=== PATIENT | male | born 1950 | race Caucasian/White ===

== ENCOUNTER → 2016-10-18 | Outpatient (CLI) | payer OTHER ==
--- NOTE | 2016-10-18 10:09 | MR ---
EXAMINATION TYPE: MR lumbar spine wo/w con DATE OF EXAM: 10/18/2016 9:55 AM COMPARISON: Lumbar spine x-ray September 25, 2016. HISTORY: Left sided low back pain with right-sided sciatica per order, left leg, buttocks, and hip pa in x 4 months per patient. TECHNIQUE: Multiplanar, multisequence images of the lumbar spine is performed without and with IV contrast, util izing 15 mL intravenous MultiHance FINDINGS: Sagittal images of the lumbar spine redemonstrated bilateral pars defects L5 level with a a nterolisthesis of L4 on L5 measuring roughly 11 mm on sagittal image 8. Multilevel disc desiccation is present with relative sparing of L5-S1 level. There is advanced disc space narrowing with heteroge neous increased T1 and T2 signal consistent with Modic type II degenerative change at this level. No large posterior disc herniations are seen on sagittal images . Vertebral body heights are fairly well -maintained with some small Schmorl nodes in the upper lumbar spine present. The conus medullaris is slightly high in position ending at inferior T12 vertebral body level. There is mild multilevel anter ior spurring. No suspicious postcontrast enhancement is seen. Axial images at the T12-L1 level shows mild broad disc bulge minimally effacing anterior thecal sac o n sagittal image 7 and axial image 27, bilateral neural foramina are patent. Axial images at the L1-L2 and the L2-L3 levels are felt within normal limits. Axial images at the L3-L4 level show mild facet degenerative changes bilaterally, there is no signifi cant disc herniation or spinal canal effacement. Bilateral neural foramina are felt patent. Axial images at the L4-L5 level show spondylolisthesis with moderate to severe facet arthropathy bila terally. Spinal canal is fairly well preserved. There is moderate to severe bilateral neural foramina l narrowing due to spondylolisthesis with effacement of both L4 nerves suspected. Axial images at the L5-S1 level are felt within normal limits. Paraspinal muscle bulk is fairly well-maintained. No suspicious retroperitoneal findings are identifi ed. Some artifact from surgical change left proximal femur level is noted on survey sequence. IMPRESSION: Bilateral pars defects L4 level with a grade 2 spondylolisthesis of L4 on L5. Spondylolis thesis results in advanced bilateral neural foraminal narrowing with encroachment on both L4 nerve haji spected. Further details are noted as discussed above.
== END | disposition home or self-care (01) ==
LOC: RADMRIMAIN 08:47
PROVIDERS: ATTEND Family Medicine
DX: M99.73 Connective tissue and disc stenosis of intervertebral foramina of lumbar region (principal); M43.16 Spondylolisthesis, lumbar region
CPT/HCPCS: 72158; A9577

== ENCOUNTER 2017-05-04 23:48 | Inpatient (IN) | payer MEDICARE ==
[2017-05-05] MEDS ORDERED: SODIUM CHLORIDE 0.9% 1,000 ML IV STA (00:05)
[2017-05-05 00:44] LABS: Basophils % (A) 1 %; CH 36.1; CHCM 35.3; Eosinophils % (A) 2 %; HCT 31.9 % (39.0-53.0); HDW 2.69; HGB 10.8 gm/dL (13.0-17.5); Luc # (Auto) 0.05; Luc % (Auto) 2; Lymphocytes # (A) 1.1 k/uL (1.0-4.8); Lymphocytes % (A) 38 %; MCH 34.9 pg (25.0-35.0); MCHC 33.9 g/dL (31.0-37.0); MCV 102.7 fL (80.0-100.0); Macrocytosis Slight; Mean Platelet Volume 7.9; Monocytes # (A) 0.1 k/uL (0-1.0); Monocytes % (A) 3 %; Neutrophils # (A) 1.7 k/uL (1.3-7.7); Neutrophils % (A) 56 %; RBC 3.11 m/uL (4.30-5.90); RDW 13.7 % (11.5-15.5); WBC (Perox) 3.17
--- NOTE | 2017-05-05 00:45 | ED ---
Syncope HPI - General Chief Complaint: Syncope Stated Complaint: Syncope Time Seen by Provider: 05/04/17 23:58 Source: patient, family, RN notes reviewed Mode of arrival: ambulatory Limitations: no limitations - History of Present Illness Initial Comments: This is a 67-year-old male with a history of peptic ulcers and GI bleeding in the past who states he felt dizzy today and then she passed out briefly twice. He states he has she started feeling somewhat weak yesterday. He did have dark bowel movements several times prior to admission today the last one showing dark red blood. He complains of having a headache feeling sweaty also had nausea vomiting last night. He had no blood per report in his emesis. Last episode like this was in April of last year about time he had a cardiac stent placed. He denies any overt abdominal pain at this time. He does show week per his he is pale looking. MD Complaint: loss of consciousness, other - Related Data Home Medications Medication Instructions Recorded Confirmed Aspirin EC [Ecotrin Low Dose] 81 mg PO DAILY 05/30/16 05/05/17 Lisinopril 2.5 mg PO DAILY 05/30/16 05/05/17 Metoprolol Tartrate 50 mg PO AC-BID 05/30/16 05/05/17 Atorvastatin [Lipitor] 40 mg PO DAILY 06/07/16 05/05/17 Clopidogrel [Plavix] 75 mg PO HS 06/07/16 05/05/17 traMADol HCL [Ultram] 50 mg PO Q6HR PRN 05/05/17 05/05/17 Previous Rx's Medication Instructions Recorded Omeprazole 20 mg PO BID #28 cap 06/07/16 Allergies Allergy/AdvReac Type Severity Reaction Status Date / Time No Known Allergies Allergy Verified 05/04/17 23:55 Review of Systems ROS Statement: Those systems with pertinent positive or pertinent negative responses have been documented in the HPI. ROS Other: All systems not noted in ROS Statement are negative. Past Medical History Past Medical History: Hyperlipidemia History of Any Multi-Drug Resistant Organisms: None Reported Past Surgical History: Heart Catheterization With Stent, Hernia Repair, Orthopedic Surgery Additional Past Surgical History / Comment(s): CARDIAC STENTS X3, SHENA INGUINAL HERNIA REPAIRS, LT HAND SX, LT FEMUR BROKEN X2 STEVEN IN PLACE Past Anesthesia/Blood Transfusion Reactions: No Reported Reaction Date of Last Stent Placement:: UNK Past Psychological History: No Psychological Hx Reported Smoking Status: Never smoker Past Alcohol Use History: None Reported, Occasional Past Drug Use History: None Reported - Past Family History Mother Family Medical History: Congestive Heart Failure (CHF) Father Family Medical History: Cancer General Exam - General Exam Comments Initial Comments: This is a well-developed well-nourished awake alert oriented 3 male Limitations: no limitations General appearance: alert, anxious Head exam: Present: atraumatic, normocephalic, normal inspection Eye exam: Present: PERRL, EOMI, other (Pale conjunctiva). Absent: scleral icterus, conjunctival injection, periorbital swelling ENT exam: Present: normal exam, mucous membranes moist Neck exam: Present: normal inspection. Absent: tenderness, meningismus, lymphadenopathy Respiratory exam: Present: normal lung sounds bilaterally. Absent: respiratory distress, wheezes, rales, rhonchi, stridor Cardiovascular Exam: Present: regular rate, normal rhythm, normal heart sounds. Absent: systolic murmur, diastolic murmur, rubs, gallop, clicks GI/Abdominal exam: Present: soft, normal bowel sounds. Absent: distended, tenderness, guarding, rebound, rigid Rectal exam: Present: heme (+) stool (HEENT positive burgundy-colored stool no masses) Extremities exam: Present: normal inspection, full ROM, normal capillary refill. Absent: tenderness, pedal edema, joint swelling, calf tenderness Back exam: Present: normal inspection Neurological exam: Present: alert, oriented X3, CN II-XII intact Psychiatric exam: Present: normal affect, normal mood Skin exam: Present: warm, dry, intact, pallor. Absent: rash Course Vital Signs 05/04/17 05/05/17 23:52 00:35 Temperature 97.3 F L Pulse Rate 87 74 Respiratory 18 18 Rate Blood Pressure 107/52 105/57 O2 Sat by Pulse 99 96 Oximetry EKG Findings - EKG Results: EKG: interpreted by WOLF, sinus rhythm (Sinus rhythm rate 75. Interval 118 QRS duration 88 daily since QTC of 36/431 this is a normal-appearing EKG.) Medical Decision Making - Medical Decision Making I did discuss findings with Dr. herrera as not patient will be admitted with GI consultation patient has seen Dr. Sue in the past. - Lab Data Result diagrams: 05/05/17 00:30 Lab Results 05/05/17 05/05/17 Range/Units 00:30 00:30 WBC 3.0 L (3.8-10.6) k/uL RBC 3.11 L (4.30-5.90) m/uL Hgb 10.8 L (13.0-17.5) gm/dL Hct 31.9 L (39.0-53.0) % MCV 102.7 H (80.0-100.0) fL MCH 34.9 (25.0-35.0) pg MCHC 33.9 (31.0-37.0) g/dL RDW 13.7 (11.5-15.5) % Plt Count 145 L (150-450) k/uL Neutrophils % 56 % Lymphocytes % 38 % Monocytes % 3 % Eosinophils % 2 % Basophils % 1 % Neutrophils # 1.7 (1.3-7.7) k/uL Lymphocytes # 1.1 (1.0-4.8) k/uL Monocytes # 0.1 (0-1.0) k/uL Eosinophils # 0.0 (0-0.7) k/uL Basophils # 0.0 (0-0.2) k/uL Macrocytosis Slight Stool Occult Blood Positive (Negative) Disposition Clinical Impression: Upper GI bleed, Anemia Disposition: ADMITTED IP TO THIS [facility] Condition: Stable Referrals: Tunde Ruano DO [Primary Care Provider] - 1-2 days
[2017-05-05 00:52] LABS: ALT 41 U/L (21-72); AST 22 U/L (17-59); Alkaline Phosphatase 51 U/L (38-126); Anion Gap 11 mmol/L; Blood Urea Nitrogen 38 mg/dL (9-20); Calcium 9.1 mg/dL (8.4-10.2); Carbon Dioxide 24 mmol/L (22-30); Chloride 102 mmol/L (98-107); Glucose 135 mg/dL (74-99); Magnesium 1.7 mg/dL (1.6-2.3); Non-African American GFR(MDRD) >60 (>60 ml/min/1.73 sqM); Potassium 4.8 mmol/L (3.5-5.1); Sodium 137 mmol/L (137-145); Total Bilirubin 0.3 mg/dL (0.2-1.3); Total Protein 6.1 g/dL (6.3-8.2)
[2017-05-05] MEDS ORDERED: ONDANSETRON 4 MG/2 ML VIAL IVP PRN (00:55)
[2017-05-05] MEDS ORDERED: NALOXONE 0.4 MG/ML 1 ML VIAL IV PRN (00:55)
[2017-05-05 00:58] LABS: Creatine Kinase 70 U/L (55-170)
[2017-05-05 01:09] LABS: Troponin I <0.012 ng/mL (0.000-0.034)
[2017-05-05 01:30] LABS: Glucose,Whole Blood 132 mg/dL (75-99)
[2017-05-05 02:05] VITALS: BMI 26.6
[2017-05-05 06:32] LABS: CH 35.7; CHCM 34.8; HCT 29.7 % (39.0-53.0); HDW 2.69; MCH 34.9 pg (25.0-35.0); MCHC 33.8 g/dL (31.0-37.0); MCV 103.1 fL (80.0-100.0); Macrocytosis Slight; Mean Platelet Volume 7.2; RBC 2.88 m/uL (4.30-5.90); RDW 13.5 % (11.5-15.5); WBC 3.6 k/uL (3.8-10.6); WBC (Perox) 3.68
[2017-05-05 06:50] LABS: Glucose 123 mg/dL (74-99)
[2017-05-05 06:51] LABS: Anion Gap 9 mmol/L; Blood Urea Nitrogen 37 mg/dL (9-20); Calcium 8.9 mg/dL (8.4-10.2); Carbon Dioxide 26 mmol/L (22-30); Chloride 103 mmol/L (98-107); Magnesium 1.8 mg/dL (1.6-2.3); Non-African American GFR(MDRD) >60 (>60 ml/min/1.73 sqM); Phosphorous 4.3 mg/dL (2.5-4.5); Potassium 4.6 mmol/L (3.5-5.1); Sodium 138 mmol/L (137-145)
[2017-05-05] MEDS ORDERED: Magnesium Replacement Protocol 1 EACH MISC MISCELLANE PRN (07:23)
[2017-05-05 07:28] LABS: Add Differential Manual Differential
[2017-05-05 07:31] LABS: Manual Review Performed; Nucleated Red Blood Cells 0 /100 WBC (0-0); Total Cells Counted 100
[2017-05-05 08:01] LABS: Glucose,Whole Blood 130 mg/dL (75-99)
[2017-05-05] MEDS: MAGNESIUM SULFATE-D5W PMX 1 GM in DEXTROSE/WATER 1 100ML.BAG IVPB SCH ×2 (08:02→08:55)
[2017-05-05] MEDS: SODIUM CHLORIDE 0.9% 1,000 ML IV SCH ×2 (08:54→19:00)
[2017-05-05] MEDS: PANTOPRAZOLE 40 MG/10 ML VIAL IV SCH ×2 (09:18→20:12)
--- NOTE | 2017-05-05 14:51 | P.HPIM ---
History of Present Illness 67-year-old gentleman with history of peptic ulcer disease in the past came in with complaints of hematemesis has been going on for 2-3 days about 5 episodes of dark stools yesterday and an episode of hematemesis or coffee-ground emesis today. Patient denied any fever, chills. Patient doesn't take any in and this aids but patient is on 2 antiplatelet medications including aspirin and Plavix. Patient had stents placed about any other ago in late April. Patient has approximately 4-5 coronary stents from his previous cardiac catheterization about any other ago and 4 years ago before that. Patient was coming of lightheadedness and had a syncopal episode yesterday. Patient is on Protonix antiplatelet therapy is being held at this point of time. Patient and evidences are being held as well at this point of time. Review of Systems REVIEW OF SYSTEMS: CONSTITUTIONAL: No fever, no malaise, no fatigue. HEENT: No recent visual problems or hearing problems. Denied any sore throat. CARDIOVASCULAR: No chest pain, orthopnea, PND, no palpitations, PULMONARY: No shortness of breath, no cough, no hemoptysis. GASTROINTESTINAL: No diarrhea, Normoactive bowel sounds. NEUROLOGICAL: No headaches, no weakness, no numbness. HEMATOLOGICAL: Denies any bleeding or petechiae. GENITOURINARY: Denies any burning micturition, frequency, or urgency. MUSCULOSKELETAL/RHEUMATOLOGICAL: Denies any joint pain, swelling, or any muscle pain. ENDOCRINE: Denies any polyuria or polydipsia. The rest of the 14-point review of systems is negative. Past Medical History Past Medical History: Coronary Artery Disease (CAD), Chest Pain / Angina, GI Bleed, Hyperlipidemia, Hypertension, Syncope History of Any Multi-Drug Resistant Organisms: None Reported Past Surgical History: Heart Catheterization With Stent, Hernia Repair, Orthopedic Surgery Additional Past Surgical History / Comment(s): CARDIAC STENTS X3, SHENA INGUINAL HERNIA REPAIRS, LT HAND SX, LT FEMUR BROKEN X2 STEVEN IN PLACE Past Anesthesia/Blood Transfusion Reactions: No Reported Reaction Date of Last Stent Placement:: UNK Past Psychological History: No Psychological Hx Reported Additional Psychological History / Comment(s): PT LIVES IN OWN HOME WITH HIS . IS INDEPENDANT OWNS HIS OWN PLUMBING BUISNESS. NO OUTSIDE SERVICES. Smoking Status: Never smoker Past Alcohol Use History: None Reported, Occasional Past Drug Use History: None Reported - Past Family History Mother Family Medical History: Congestive Heart Failure (CHF) Father Family Medical History: Cancer Medications and Allergies Home Medications Medication Instructions Recorded Confirmed Type Aspirin EC [Ecotrin Low Dose] 81 mg PO DAILY 05/30/16 05/05/17 History Lisinopril 2.5 mg PO DAILY 05/30/16 05/05/17 History Metoprolol Tartrate 50 mg PO AC-BID 05/30/16 05/05/17 History Atorvastatin [Lipitor] 40 mg PO DAILY 06/07/16 05/05/17 History Clopidogrel [Plavix] 75 mg PO HS 06/07/16 05/05/17 History Omeprazole 20 mg PO DAILY PRN 05/05/17 05/05/17 History traMADol HCL [Ultram] 50 mg PO Q6HR PRN 05/05/17 05/05/17 History Allergies Allergy/AdvReac Type Severity Reaction Status Date / Time No Known Allergies Allergy Verified 05/05/17 09:05 Physical Exam Vitals: Vital Signs Temp Pulse Resp BP Pulse Ox 05/05/17 11:22 17 05/05/17 11:20 98.4 F 76 13 149/68 98 05/05/17 11:00 74 12 149/68 99 05/05/17 10:40 72 10 L 149/68 100 05/05/17 10:20 69 13 149/68 100 05/05/17 10:00 85 20 149/68 96 05/05/17 09:40 67 13 151/68 05/05/17 09:20 69 12 151/68 05/05/17 09:08 98.6 F 17 98 05/05/17 09:00 66 12 151/68 05/05/17 08:40 70 16 151/68 05/05/17 08:20 98.6 F 68 13 151/68 05/05/17 08:00 71 18 151/68 05/05/17 07:40 67 16 128/65 05/05/17 07:20 71 12 128/65 05/05/17 07:00 81 23 128/65 05/05/17 06:40 77 12 128/65 05/05/17 06:20 66 24 128/65 05/05/17 06:00 74 10 L 128/65 05/05/17 05:40 85 31 H 97/53 05/05/17 05:20 81 11 L 97/53 05/05/17 05:00 73 13 97/53 05/05/17 04:40 82 14 97/53 05/05/17 04:20 79 10 L 97/53 05/05/17 04:00 98.3 F 73 13 97/53 98 05/05/17 03:40 75 14 05/05/17 03:20 77 14 05/05/17 03:00 75 13 05/05/17 02:40 76 14 05/05/17 02:20 74 15 05/05/17 02:00 98.3 F 94 28 H 113/60 05/05/17 01:40 83 13 05/05/17 01:27 81 05/05/17 01:18 98.3 F 05/05/17 01:11 98.1 F 77 18 101/66 96 05/05/17 00:35 74 18 105/57 96 05/04/17 23:52 97.3 F L 87 18 107/52 99 Intake and Output 05/04/17 05/05/17 05/05/17 22:59 06:59 14:59 Intake Total 400 650 Output Total 500 1000 Balance -100 -350 Intake: IV 400 350 Sodium Chloride 0.9% 1, 400 350 000 ml @ 100 mls/hr IV . Q10H STA Rx#:[id number] Intake, IV Titration 200 Amount Magnesium Sulfate-D5w Pmx 200 1 gm In Dextrose/Water 1 100ml.bag @ 100 mls/hr IVPB Q1H TATA Rx#: [id number] Oral 100 Output: Urine 500 400 Emesis 600 Other: Voiding Method Urinal # Voids 1 # Emeses 0 Weight 79.379 kg PHYSICAL EXAMINATION: GENERAL: The patient is alert and oriented x3, not in any acute distress. Well developed, well nourished. HEENT: Pupils are round and equally reacting to light. EOMI. No scleral icterus. No conjunctival pallor. Normocephalic, atraumatic. No pharyngeal erythema. No thyromegaly. CARDIOVASCULAR: S1 and S2 present. No murmurs, rubs, or gallops. PULMONARY: Chest is clear to auscultation, no wheezing or crackles. ABDOMEN: Soft, nontender, nondistended, normoactive bowel sounds. No palpable organomegaly. MUSCULOSKELETAL: No joint swelling or deformity. EXTREMITIES: No cyanosis, clubbing, or pedal edema. NEUROLOGICAL: Gross neurological examination did not reveal any focal deficits. SKIN: No rashes. Results CBC & Chem 7: 05/05/17 05:32 05/05/17 05:32 Labs: Abnormal Lab Results - Last 24 Hours (Table) 05/05/17 05/05/17 05/05/17 Range/Units 00:30 00:30 00:30 WBC 3.0 L (3.8-10.6) k/uL RBC 3.11 L (4.30-5.90) m/uL Hgb 10.8 L (13.0-17.5) gm/dL Hct 31.9 L (39.0-53.0) % MCV 102.7 H (80.0-100.0) fL Plt Count 145 L (150-450) k/uL APTT 20.9 L (22.0-30.0) sec BUN 38 H (9-20) mg/dL Glucose 135 H (74-99) mg/dL POC Glucose (mg/dL) (75-99) mg/dL Total Protein 6.1 L (6.3-8.2) g/dL 05/05/17 05/05/17 05/05/17 Range/Units 01:27 05:32 05:32 WBC 3.6 L (3.8-10.6) k/uL RBC 2.88 L (4.30-5.90) m/uL Hgb 10.0 L (13.0-17.5) gm/dL Hct 29.7 L (39.0-53.0) % MCV 103.1 H (80.0-100.0) fL Plt Count 149 L (150-450) k/uL APTT (22.0-30.0) sec BUN 37 H (9-20) mg/dL Glucose 123 H (74-99) mg/dL POC Glucose (mg/dL) 132 H (75-99) mg/dL Total Protein (6.3-8.2) g/dL 05/05/17 Range/Units 07:59 WBC (3.8-10.6) k/uL RBC (4.30-5.90) m/uL Hgb (13.0-17.5) gm/dL Hct (39.0-53.0) % MCV (80.0-100.0) fL Plt Count (150-450) k/uL APTT (22.0-30.0) sec BUN (9-20) mg/dL Glucose (74-99) mg/dL POC Glucose (mg/dL) 130 H (75-99) mg/dL Total Protein (6.3-8.2) g/dL Assessment and Plan Plan: #1 acute blood loss anemia secondary to upper GI bleed from possible peptic ulcer disease. Patient is on Protonix IV. Antiplatelet therapy is being held. Patient will undergo upper GI endoscopy tomorrow. After upper GI endoscopy will depending on the results will discuss with the her assistant property manager regarding continuation of dual antiplatelet therapy as he almost completed 1 year of dual antiplatelet therapy after his coronary stent placement patient probably can be switched to just aspirin or Plavix since he is on Prilosec, patient probably should be on aspirin upon discharge without Plavix. #2 coronary artery disease with previous cardiac catheterization and stents. #3 Hypertension: With concerns of hypotension secondary to acute GI bleed and evidences are being held at this time. #4 chronic low back pain #5 hyperlipidemia #6 previous history of peptic ulcer disease
[2017-05-05] MEDS: METOPROLOL TARTRATE 50 MG TAB PO SCH (17:46)
[2017-05-06] MEDS: SODIUM CHLORIDE 0.9% 1,000 ML IV SCH ×3 (01:00→10:05)
--- NOTE | 2017-05-06 07:21 | CONS ---
DATE OF CONSULTATION: 05/05/2017 REASON FOR CONSULTATION: Acute gastrointestinal bleed. HISTORY OF PRESENT ILLNESS: The patient is a 67 -year-old pleasant white male came to the emergency room with three episodes of black tarry stools that started yesterday afternoon. He started having some epigastric discomfort for the last two or three days. He takes Advil every night for several years. Yesterday he had an episode of black tarry7 stools followed by another episode of maroon colored stools and he became somewhat lightheaded and dizzy and came to the emergency room and subsequently was admitted to the hospital for further evaluation and treatment. He had a similar episode about a year ago and he states that the was admitted to the hospital for about two days but does not recall having an upper endoscopy done. He was told that he has possible peptic ulcer disease that was treated with PPI at that time. The patient has history of coronary artery disease with stent placement a year ago and presently on aspirin and Plavix which he took yesterday. Since being in the hospital, he did not have any further episodes of bleeding. The epigastric pain is better. He remains NPO. He had an episode of dark colored emesis this morning. Overall he is feeling much better. His past medical history is significant for coronary artery disease, hypertension, hyperlipidemia. Medications at home: 1. Aspirin. 2. Lisinopril. 3. Metoprolol. 4. Lipitor. 5. Plavix. 6. Ultram. ALLERGIES: None. SOCIAL HISTORY: No smoking or alcohol use. PAST SURGICAL HISTORY: Bilateral inguinal hernia repair, left femur fracture surgery, cardiac stent placement a year ago. FAMILY HISTORY: Mother has congestive heart failure. Father has some cancer. REVIEW OF SYSTEMS: CARDIOPULMONARY: No chest pain or shortness of breath. : No hematuria or dysuria. MUSCULOSKELETAL: Unremarkable. SKIN: Unremarkable Endocrine: Unremarkable. Psychiatric: Unremarkable. Neurological: Unremarkable. ENT/Vision: Unremarkable. Constitutional: No recent weight loss. No fevers, chills or night sweats. On physical examination, he appears comfortable, no apparent distress. Vital signs are stable. Blood pressure is 128/65. Pulse rate 67. Temperature 98.6. HEENT: Unremarkable. Conjunctivae pink. Sclerae anicteric. Oral cavity no lesions. Neck no JVD or lymph node enlargement. Chest is clear to auscultation. Heart is regular rate and rhythm. Abdomen is soft. Bowel sounds positive. Mild tenderness in the epigastric area. Extremities no pedal edema. Skin no rashes. Neurological: Alert and oriented times three. No focal deficits. Labs done at the time of admission to the hospital last night: WBC 3, hemoglobin 10.8, this morning it is 10. Platelets 149. WBC 3.6, BUN 38, creatinine 0.8. AST, ALT, T-bili and alk phos all within normal limits. IMPRESSION: 1. Acute gastrointestinal bleed, possibly upper in etiology. The patient had two episodes of black tarry stools and became dizzy, came into the emergency room. Initial hemoglobin was 10.8 and this morning it is 10. For the last 12 hours, he did not have any further episodes of bleeding and he remains hemodynamically stable. Most likely dealing with peptic ulcer disease related to NSAID use. 2. Coronary artery disease status post stent placement a year ago presently on aspirin and Plavix. RECOMMENDATIONS: 1. CBC every six hours. 2. Start him on a clear liquid diet. 3. Proceed with upper endoscopy tomorrow. 4. Continue Protonix 40 mg twice daily. 5. We will follow him closely during this hospital stay. Thank you for your consultation. NELLI
[2017-05-06 07:46] LABS: Basophils % (A) 1 %; CH 35.8; Eosinophils # (A) 0.1 k/uL (0-0.7); Eosinophils % (A) 3 %; HCT 25.7 % (39.0-53.0); HDW 2.59; HGB 8.7 gm/dL (13.0-17.5); Luc # (Auto) 0.03; Luc % (Auto) 1; Lymphocytes # (A) 1.7 k/uL (1.0-4.8); Lymphocytes % (A) 52 %; MCH 35.7 pg (25.0-35.0); MCHC 33.7 g/dL (31.0-37.0); MCV 105.9 fL (80.0-100.0); Macrocytosis Moderate; Mean Platelet Volume 8.2; Monocytes # (A) 0.1 k/uL (0-1.0); Monocytes % (A) 2 %; Neutrophils # (A) 1.4 k/uL (1.3-7.7); Neutrophils % (A) 42 %; RBC 2.42 m/uL (4.30-5.90); RDW 14.5 % (11.5-15.5); WBC 3.2 k/uL (3.8-10.6); WBC (Perox) 3.47
[2017-05-06 08:03] LABS: ALT 30 U/L (21-72); AST 17 U/L (17-59); Alkaline Phosphatase 42 U/L (38-126); Anion Gap 8 mmol/L; Blood Urea Nitrogen 13 mg/dL (9-20); Carbon Dioxide 23 mmol/L (22-30); Chloride 110 mmol/L (98-107); Glucose 90 mg/dL (74-99); Non-African American GFR(MDRD) >60 (>60 ml/min/1.73 sqM); Potassium 4.1 mmol/L (3.5-5.1); Sodium 141 mmol/L (137-145); Total Bilirubin 0.2 mg/dL (0.2-1.3); Total Protein 5.1 g/dL (6.3-8.2)
[2017-05-06 08:08] LABS: Manual Review Performed
[2017-05-06] MEDS: METOPROLOL TARTRATE 50 MG TAB PO SCH ×2 (08:40→16:08)
[2017-05-06] MEDS: PANTOPRAZOLE 40 MG/10 ML VIAL IV SCH (08:42)
[2017-05-06] MEDS ORDERED: ATORVASTATIN 40 MG TAB PO SCH (09:00)
[2017-05-06 12:18] VITALS: RESP 18; TEMP 97.4
[2017-05-06] MEDS ORDERED: PROPOFOL 10 MG/ML 20 ML VIAL IV ONE (14:13)
[2017-05-06] MEDS ORDERED: MIDAZOLAM 2 MG/2 ML VIAL ONE (14:13)
[2017-05-06] MEDS ORDERED: LIDOCAINE 1% INJ 10MG/ML (20 ML MDV) ONE (14:13)
[2017-05-06] MEDS ORDERED: IV FLUID CONTINUATION 400 ML IV ONE (14:21)
--- NOTE | 2017-05-06 14:42 | P.PCN ---
Date of Procedure: 05/06/17 Preoperative Diagnosis: Postoperative Diagnosis: Procedure(s) Performed: Procedure: Esophagogastroduodenoscopy and biopsy. Preoperative diagnosis upper GI bleeding and anemia. Postoperative diagnosis: 1. Hiatal hernia with no obvious esophagitis or complicated reflux disease. 2. Gastritis and duodenitis with duodenal bulb ulcer with clean ulcer base not bleeding at the time of this exam. 3. Biopsy obtained from the antrum to rule out H. pylori infection. Preparation and sedation: Was provided by anesthesia. Brief clinical history: The patient is a 67-year-old male who was admitted to the hospital because of history of epigastric pain of few days' duration and dark stools that started the day before admission. His hemoglobin was 10.8 at the time of admission and dropped by around 2 grams down to 8.7 this morning. The patient was on Plavix for coronary atherosclerotic heart disease and he is on aspirin daily. The details are summarized in the history and physical and dictated consultation. This evaluation is to assess for a source of upper GI bleeding. Procedure: With the patient on his left lateral decubitus position and after informed consent and adequate sedation, I passed the Olympus-GIF 160 video upper endoscope through the cricopharyngeus down the esophagus. GE junction was around 35 cm from the incisors and there was a sliding hiatal hernia around 2-3 cm in size. The esophagus did not show any obvious esophagitis or complicated reflux disease. The endoscope was then passed into the stomach which was insufflated with air and inspected in detail including the retroflex view in the cardia. There was some mottling and erythema in the antrum and a fading erosion or 2 but no ulcers or bleeding. Pyloric channel did not show any ulcers. Duodenal bulb showed some erythema and edema and there was a small ulcer in the distal bulb with clean base with no visible vessels or dark protuberances or active spontaneous bleeding. I was able to pass the endoscope to the post bulbar area and descending duodenum. There was no obstruction or any other pathology. I obtained biopsies from the antrum then the endoscope was withdrawn. The patient tolerated the procedure well. Plan: Will continue clear liquid diet overnight and check his blood counts regularly and continue PPI. Based on his blood counts in the morning will consider advancing his diet and make further plans based on his course. We will follow with you with interest. Implants: Indications for Procedure: Operative Findings: Description of Procedure:
--- NOTE | 2017-05-06 14:44 | P.DS ---
Providers Date of admission: 05/05/17 00:58 Attending physician: Steven Robles Consults: 05/05/17 00:56 Consult Physician Routine Consulting Provider: Ricardo Sue Consult Reason/Comments: Upper GI bleeding Do you want consulting provider notified?: Yes [facility] Course: 66-year-old woman admitted for upper GI bleed secondary to peptic ulcer disease. Patient hemoglobin did drop but patient did not have any hematemesis or any dark stools today. Patient will undergo upper GI endoscopy and will be discharged after that if cleared by gastroenterology and patient is on both aspirin and Plavix and Plavix will be discontinued patient will be discharged on Prilosec for 30 days along with Maalox. Patient had cardiac catheterization and stent placement about any ago. Discussed with cardiology regarding dual antiplatelet therapy PHYSICAL EXAMINATION: GENERAL: The patient is alert and oriented x3, not in any acute distress. Well developed, well nourished. HEENT: Pupils are round and equally reacting to light. EOMI. No scleral icterus. No conjunctival pallor. Normocephalic, atraumatic. No pharyngeal erythema. No thyromegaly. CARDIOVASCULAR: S1 and S2 present. No murmurs, rubs, or gallops. PULMONARY: Chest is clear to auscultation, no wheezing or crackles. ABDOMEN: Soft, nontender, nondistended, normoactive bowel sounds. No palpable organomegaly. MUSCULOSKELETAL: No joint swelling or deformity. EXTREMITIES: No cyanosis, clubbing, or pedal edema. NEUROLOGICAL: Gross neurological examination did not reveal any focal deficits. SKIN: No rashes. #1 acute blood loss anemia secondary to upper GI bleed from possible peptic ulcer disease. #2 coronary artery disease with previous cardiac catheterization and stents. #3 Hypertension: With concerns of hypotension secondary to acute GI bleed and evidences are being held at this time. #4 chronic low back pain #5 hyperlipidemia #6 previous history of peptic ulcer disease Patient Condition at Discharge: Stable Plan - Discharge Summary New Discharge Prescriptions: New Mag Hydrox/Al Hydrox/Simeth [Maalox] 30 ml PO BID #10 day Omeprazole [PriLOSEC] 40 mg PO MAX-BRKFST #30 capsule. Discontinued Lisinopril 2.5 mg PO DAILY Clopidogrel [Plavix] 75 mg PO HS Omeprazole 20 mg PO DAILY PRN PRN Reason: Heartburn No Action Metoprolol Tartrate 50 mg PO AC-BID Aspirin EC [Ecotrin Low Dose] 81 mg PO DAILY Atorvastatin [Lipitor] 40 mg PO DAILY traMADol HCL [Ultram] 50 mg PO Q6HR PRN PRN Reason: Pain Discharge Medication List Aspirin EC [Ecotrin Low Dose] 81 mg PO DAILY 05/30/16 [History] Metoprolol Tartrate 50 mg PO AC-BID 05/30/16 [History] Atorvastatin [Lipitor] 40 mg PO DAILY 06/07/16 [History] traMADol HCL [Ultram] 50 mg PO Q6HR PRN 05/05/17 [History] Mag Hydrox/Al Hydrox/Simeth [Maalox] 30 ml PO BID #10 day 05/06/17 [Rx] Omeprazole [PriLOSEC] 40 mg PO AC-BRKFST #30 capsule. 05/06/17 [Rx] Follow up Appointment(s)/Referral(s): Tawnya Alfaro MD [STAFF PHYSICIAN] - 1 Week Tunde Ruano DO [Primary Care Provider] - 3 Days Discharge Disposition: HOME SELF-CARE
[2017-05-06 16:13] VITALS: BP 138/72; PULSE 98
== END 2017-05-06 16:41 | disposition home or self-care (01) | DRG 378 ==
LOC: SUPCPDRO 23:48 → EC 23:48 → 6ICU 05-05 00:58 → 6SEL 05-06 10:09
PROVIDERS: ADMIT Internal Medicine; ATTEND Internal Medicine
PROC: 0DB68ZX Excision of Stomach, Via Natural or Artificial Opening Endoscopic, Diagnostic (ICD-10-PCS; principal; 2017-05-06 07:30)
DX: K26.4 Chronic or unspecified duodenal ulcer with hemorrhage (principal); D62 Acute posthemorrhagic anemia; T39.395A Adverse effect of other nonsteroidal anti-inflammatory drugs [NSAID], initial encounter; K29.80 Duodenitis without bleeding; K29.70 Gastritis, unspecified, without bleeding; K44.9 Diaphragmatic hernia without obstruction or gangrene; I10 Essential (primary) hypertension; I25.10 Atherosclerotic heart disease of native coronary artery without angina pectoris; G89.29 Other chronic pain; M54.5 Low back pain; E78.5 Hyperlipidemia, unspecified; Z79.82 Long term (current) use of aspirin; Z79.02 Long term (current) use of antithrombotics/antiplatelets; Z79.899 Other long term (current) drug therapy; Z87.11 Personal history of peptic ulcer disease; Z95.5 Presence of coronary angioplasty implant and graft
CPT/HCPCS: 36415; 43239; 80048; 80053; 82140; 82272; 82550; 82553; 83735; 84100; 84484; 85025; 85730; 86850; 86900; 86901; 88305; 88342; 93005; 99285

== ENCOUNTER → 2017-05-18 | Outpatient (CLI) | payer MEDICARE ==
[2017-05-18 12:14] LABS: CH 34.2; CHCM 33.6; HCT 26.8 % (39.0-53.0); HDW 4.23; HGB 9.2 gm/dL (13.0-17.5); Hypochromasia Slight; MCHC 34.1 g/dL (31.0-37.0); MCV 102.5 fL (80.0-100.0); Macrocytosis Slight; Mean Platelet Volume 8.9; Poikilocytosis Moderate; RBC 2.62 m/uL (4.30-5.90); RDW 14.8 % (11.5-15.5); WBC 2.4 k/uL (3.8-10.6)
== END ==
LOC: LABWHC1 11:59
PROVIDERS: ATTEND Internal Medicine Interventional Cardiology
DX: D64.9 Anemia, unspecified (principal); I25.10 Atherosclerotic heart disease of native coronary artery without angina pectoris; K92.2 Gastrointestinal hemorrhage, unspecified
CPT/HCPCS: 36415; 85027

== ENCOUNTER → 2018-03-28 | Outpatient (CLI) | payer OTHER ==
--- NOTE | 2018-03-28 13:11 | US ---
EXAMINATION TYPE: US abdomen complete DATE OF EXAM: 03/28/2018 COMPARISON: None CLINICAL HISTORY: 68-year-old male D61.818 Other pancytopenia, R16.1 splenomegaly. Patient states hav ing low WBC. No abdominal pain. TECHNIQUE: Multiple sonographic images of the abdomen are obtained. FINDINGS: EXAM MEASUREMENTS: Liver Length: 16.1 cm Gallbladder Wall: 0.3 cm CHD: 0.5 cm Spleen: 9.6 cm Right Kidney: 10.7 x 4.9 x 6.1 cm Left Kidney: 11.3 x 4.8 x 5.8 cm Pancreas: Tail obscured by overlying bowel gas. Liver: Coarse, echogenic, and attenuating. Focal sparing seen adjacent to GB= 2.3 x 1.1 x 1.1 cm Gallbladder: wnl Evidence for sonographic Whitlock's sign: neg CBD: Obscured by overlying bowel gas CHD: wnl Spleen: wnl Right Kidney: No hydronephrosis Left Kidney: No hydronephrosis Upper IVC: wnl Abd Aorta: Proximal obscured by overlying bowel gas IMPRESSION: Coarse, echogenic, and attenuating liver suggests hepatic steatosis. Correlate with LFTs, lipid profi le, and patient risk factors.
== END | disposition home or self-care (01) ==
LOC: RADUSWWP 10:14
PROVIDERS: ATTEND Internal Medicine Hematology & Oncology
DX: D61.818 Other pancytopenia (principal); R16.1 Splenomegaly, not elsewhere classified
CPT/HCPCS: 76700

== ENCOUNTER 2019-10-21 16:04 | Inpatient (IN) | payer MEDICARE ==
[2019-10-21] MEDS ORDERED: SODIUM CHLORIDE 0.9% 1,000 ML IV STA (16:41)
[2019-10-21] MEDS ORDERED: IPRATROPIUM-ALBUTEROL 3 ML NEB INHALATION STA (16:41)
[2019-10-21] MEDS ORDERED: SODIUM CHLORIDE 0.9% 500 ML 500 ML IV STA (16:41)
--- NOTE | 2019-10-21 16:48 | ED ---
SOB HPI - General Chief Complaint: Shortness of Breath Stated Complaint: aches, pains, weakness Time Seen by Provider: 10/21/19 16:25 Source: patient Mode of arrival: ambulatory Limitations: no limitations - History of Present Illness Initial Comments: This is a 69-year-old male history of myelodysplastic syndrome who had a stem cell transplant in February 26 this past year also history of anemia GI bleed coronary artery disease with stents who presents with complaints of weakness cough shortness of breath rhinorrhea diarrhea. He states the symptoms may going on this week he saw his doctor on the was started doxycycline is not feeling better is had decreased oral intake. No fever though the cough is been dry. He does not have any history of lung disease does not use inhalers or oxygen but he is short of breath and does have some exertional dyspnea he denies any chest pain. He also states she's had diarrhea without nausea vomiting started before the antibiotics. He states he has not been well since he had his flu shot recently. MD Complaint: shortness of breath, cough - Related Data Home Medications Medication Instructions Recorded Confirmed Aspirin EC [Ecotrin Low Dose] 81 mg PO DAILY 05/30/16 05/05/17 Metoprolol Tartrate 50 mg PO AC-BID 05/30/16 05/05/17 Atorvastatin [Lipitor] 40 mg PO DAILY 06/07/16 05/05/17 traMADol HCL [Ultram] 50 mg PO Q6HR PRN 05/05/17 05/05/17 Previous Rx's Medication Instructions Recorded Mag Hydrox/Al Hydrox/Simeth 30 ml PO BID #10 day 05/06/17 [Maalox] Omeprazole [PriLOSEC] 40 mg PO AC-BRKFST #30 capsule. 05/06/17 Allergies Allergy/AdvReac Type Severity Reaction Status Date / Time No Known Allergies Allergy Verified 10/21/19 16:16 Review of Systems ROS Statement: Those systems with pertinent positive or pertinent negative responses have been documented in the HPI. ROS Other: All systems not noted in ROS Statement are negative. Past Medical History Past Medical History: Coronary Artery Disease (CAD), Chest Pain / Angina, GI Bleed, Hyperlipidemia, Hypertension, Syncope Additional Past Medical History / Comment(s): MDS History of Any Multi-Drug Resistant Organisms: None Reported Past Surgical History: Heart Catheterization With Stent, Hernia Repair, Orthope dic Surgery Additional Past Surgical History / Comment(s): CARDIAC STENTS X3, SHENA INGUINAL HERNIA REPAIRS, LT HAND SX, LT FEMUR BROKEN X2 STEVEN IN PLACE Past Anesthesia/Blood Transfusion Reactions: No Reported Reaction Date of Last Stent Placement:: UNK Past Psychological History: No Psychological Hx Reported Smoking Status: Never smoker Past Alcohol Use History: None Reported, Occasional Past Drug Use History: None Reported - Past Family History Mother Family Medical History: Congestive Heart Failure (CHF) Father Family Medical History: Cancer General Exam - General Exam Comments Initial Comments: This is a well-developed well-nourished awake alert oriented 3 male Limitations: no limitations General appearance: alert, in no apparent distress Head exam: Present: atraumatic, normocephalic, normal inspection Eye exam: Present: normal appearance, PERRL, EOMI. Absent: scleral icterus, conjunctival injection, periorbital swelling ENT exam: Present: mucous membranes dry (Boggy nasal mucosa) Neck exam: Present: normal inspection, full ROM, other (No stridor JVD or bruits) Respiratory exam: Present: decreased breath sounds, other (Some scattered expiratory wheezes noted) Cardiovascular Exam: Present: normal rhythm, tachycardia, normal heart sounds. Absent: systolic murmur, diastolic murmur, rubs, gallop, clicks GI/Abdominal exam: Present: soft, normal bowel sounds. Absent: distended, tenderness, guarding, rebound, rigid Extremities exam: Present: normal inspection, full ROM, normal capillary refill. Absent: tenderness, pedal edema, joint swelling, calf tenderness Back exam: Present: normal inspection Neurological exam: Present: alert, oriented X3, CN II-XII intact Psychiatric exam: Present: normal affect, normal mood Skin exam: Present: warm, dry, intact, normal color. Absent: rash Course Vital Signs 10/21/19 10/21/19 10/21/19 16:16 17:30 17:40 Temperature 98.0 F Pulse Rate 103 H 98 92 Respiratory 18 20 Rate Blood Pressure 152/79 136/80 O2 Sat by Pulse 96 93 L Oximetry 10/21/19 10/21/19 10/21/19 17:50 18:05 18:10 Temperature Pulse Rate 90 84 99 Respiratory 20 18 18 Rate Blood Pressure O2 Sat by Pulse 95 99 Oximetry 10/21/19 10/21/19 10/21/19 18:14 18:20 18:30 Temperature Pulse Rate 86 104 H 99 Respiratory 18 21 18 Rate Blood Pressure O2 Sat by Pulse 95 96 Oximetry 10/21/19 10/21/19 10/21/19 18:40 18:50 19:00 Temperature Pulse Rate 105 H 101 H 102 H Respiratory 17 18 18 Rate Blood Pressure 138/75 O2 Sat by Pulse 95 94 L 94 L Oximetry 10/21/19 19:10 Temperature Pulse Rate 95 Respiratory 22 Rate Blood Pressure 139/74 O2 Sat by Pulse 94 L Oximetry Medical Decision Making - Medical Decision Making I did discuss findings with the patient and his . Also with Dr. Pabon. Patient will be admitted place an IV antibiotics. - Lab Data Result diagrams: 10/21/19 17:15 10/21/19 17:15 Lab Results 10/21/19 10/21/19 10/21/19 Range/Units 17:15 17:15 17:15 WBC 10.6 (3.8-10.6) k/uL RBC 4.81 (4.30-5.90) m/uL Hgb 14.9 (13.0-17.5) gm/dL Hct 45.4 (39.0-53.0) % MCV 94.3 (80.0-100.0) fL MCH 30.9 (25.0-35.0) pg MCHC 32.8 (31.0-37.0) g/dL RDW 15.3 (11.5-15.5) % Plt Count 21 L (150-450) k/uL Neutrophils % 42 % Lymphocytes % 49 % Monocytes % 4 % Eosinophils % 1 % Basophils % 3 % Neutrophils # 4.4 (1.3-7.7) k/uL Lymphocytes # 5.1 H (1.0-4.8) k/uL Monocytes # 0.4 (0-1.0) k/uL Eosinophils # 0.1 (0-0.7) k/uL Basophils # 0.3 H (0-0.2) k/uL Manual Slide Review Performed PT (9.0-12.0) sec INR (<1.2) APTT (22.0-30.0) sec Sodium 136 L (137-145) mmol/L Potassium 4.2 (3.5-5.1) mmol/L Chloride 109 H (98-107) mmol/L Carbon Dioxide 17 L (22-30) mmol/L Anion Gap 10 mmol/L BUN 22 H (9-20) mg/dL Creatinine 1.07 (0.66-1.25) mg/dL Est GFR (CKD-EPI)AfAm 83 (>60 ml/min/1.73 sqM) Est GFR (CKD-EPI)NonAf 72 (>60 ml/min/1.73 sqM) Glucose 116 H (74-99) mg/dL Calcium 9.2 (8.4-10.2) mg/dL Magnesium 2.0 (1.6-2.3) mg/dL Total Bilirubin 0.6 (0.2-1.3) mg/dL AST 57 (17-59) U/L ALT 47 (4-49) U/L Alkaline Phosphatase 223 H (38-126) U/L Creatine Kinase 78 (55-170) U/L Troponin I (0.000-0.034) ng/mL NT-Pro-B Natriuret Pep 514 pg/mL Total Protein 7.8 (6.3-8.2) g/dL Albumin 3.9 (3.5-5.0) g/dL Urine Color Urine Appearance (Clear) Urine pH (5.0-8.0) Ur Specific [place] (1.001-1.035) Urine Protein (Negative) Urine Glucose (UA) (Negative) Urine Ketones (Negative) Urine Blood (Negative) Urine Nitrite (Negative) Urine Bilirubin (Negative) Urine Urobilinogen (<2.0) mg/dL Ur Leukocyte Esterase (Negative) Urine RBC (0-5) /hpf Urine WBC (0-5) /hpf Influenza Type A RNA (Not Detectd) Influenza Type B (PCR) (Not Detectd) 10/21/19 10/21/19 10/21/19 Range/Units 17:15 17:15 17:15 WBC (3.8-10.6) k/uL RBC (4.30-5.90) m/uL Hgb (13.0-17.5) gm/dL Hct (39.0-53.0) % MCV (80.0-100.0) fL MCH (25.0-35.0) pg MCHC (31.0-37.0) g/dL RDW (11.5-15.5) % Plt Count (150-450) k/uL Neutrophils % % Lymphocytes % % Monocytes % % Eosinophils % % Basophils % % Neutrophils # (1.3-7.7) k/uL Lymphocytes # (1.0-4.8) k/uL Monocytes # (0-1.0) k/uL Eosinophils # (0-0.7) k/uL Basophils # (0-0.2) k/uL Manual Slide Review PT 10.2 (9.0-12.0) sec INR 1.0 (<1.2) APTT 26.6 (22.0-30.0) sec Sodium (137-145) mmol/L Potassium (3.5-5.1) mmol/L Chloride (98-107) mmol/L Carbon Dioxide (22-30) mmol/L Anion Gap mmol/L BUN (9-20) mg/dL Creatinine (0.66-1.25) mg/dL Est GFR (CKD-EPI)AfAm (>60 ml/min/1.73 sqM) Est GFR (CKD-EPI)NonAf (>60 ml/min/1.73 sqM) Glucose (74-99) mg/dL Calcium (8.4-10.2) mg/dL Magnesium (1.6-2.3) mg/dL Total Bilirubin (0.2-1.3) mg/dL AST (17-59) U/L ALT (4-49) U/L Alkaline Phosphatase (38-126) U/L Creatine Kinase (55-170) U/L Troponin I <0.012 (0.000-0.034) ng/mL NT-Pro-B Natriuret Pep pg/mL Total Protein (6.3-8.2) g/dL Albumin (3.5-5.0) g/dL Urine Color Urine Appearance (Clear) Urine pH (5.0-8.0) Ur Specific [place] (1.001-1.035) Urine Protein (Negative) Urine Glucose (UA) (Negative) Urine Ketones (Negative) Urine Blood (Negative) Urine Nitrite (Negative) Urine Bilirubin (Negative) Urine Urobilinogen (<2.0) mg/dL Ur Leukocyte Esterase (Negative) Urine RBC (0-5) /hpf Urine WBC (0-5) /hpf Influenza Type A RNA Not Detected (Not Detectd) Influenza Type B (PCR) Not Detected (Not Detectd) 10/21/19 Range/Units 18:31 WBC (3.8-10.6) k/uL RBC (4.30-5.90) m/uL Hgb (13.0-17.5) gm/dL Hct (39.0-53.0) % MCV (80.0-100.0) fL MCH (25.0-35.0) pg MCHC (31.0-37.0) g/dL RDW (11.5-15.5) % Plt Count (150-450) k/uL Neutrophils % % Lymphocytes % % Monocytes % % Eosinophils % % Basophils % % Neutrophils # (1.3-7.7) k/uL Lymphocytes # (1.0-4.8) k/uL Monocytes # (0-1.0) k/uL Eosinophils # (0-0.7) k/uL Basophils # (0-0.2) k/uL Manual Slide Review PT (9.0-12.0) sec INR (<1.2) APTT (22.0-30.0) sec Sodium (137-145) mmol/L Potassium (3.5-5.1) mmol/L Chloride (98-107) mmol/L Carbon Dioxide (22-30) mmol/L Anion Gap mmol/L BUN (9-20) mg/dL Creatinine (0.66-1.25) mg/dL Est GFR (CKD-EPI)AfAm (>60 ml/min/1.73 sqM) Est GFR (CKD-EPI)NonAf (>60 ml/min/1.73 sqM) Glucose (74-99) mg/dL Calcium (8.4-10.2) mg/dL Magnesium (1.6-2.3) mg/dL Total Bilirubin (0.2-1.3) mg/dL AST (17-59) U/L ALT (4-49) U/L Alkaline Phosphatase (38-126) U/L Creatine Kinase (55-170) U/L Troponin I (0.000-0.034) ng/mL NT-Pro-B Natriuret Pep pg/mL Total Protein (6.3-8.2) g/dL Albumin (3.5-5.0) g/dL Urine Color Yellow Urine Appearance Clear (Clear) Urine pH 5.5 (5.0-8.0) Ur Specific [place] 1.012 (1.001-1.035) Urine Protein Trace H (Negative) Urine Glucose (UA) Negative (Negative) Urine Ketones Negative (Negative) Urine Blood Trace H (Negative) Urine Nitrite Negative (Negative) Urine Bilirubin Negative (Negative) Urine Urobilinogen <2.0 (<2.0) mg/dL Ur Leukocyte Esterase Negative (Negative) Urine RBC 1 (0-5) /hpf Urine WBC <1 (0-5) /hpf Influenza Type A RNA (Not Detectd) Influenza Type B (PCR) (Not Detectd) - Radiology Data Radiology results: report reviewed (I did review the imaging and report is evid ence of a new left lower lobe infiltrate.), image reviewed Disposition Clinical Impression: Left lower lobe pneumonia, Acute bronchospasm, Myelodysplastic syndrome, Failure of outpatient treatment Disposition: ADMITTED IP TO THIS HOSP Condition: Fair Referrals: Tunde Ruano DO [Primary Care Provider] - 1-2 days
[2019-10-21 17:28] LABS: Basophils # (A) 0.3 k/uL (0-0.2); Basophils % (A) 3 %; Eosinophils # (A) 0.1 k/uL (0-0.7); Eosinophils % (A) 1 %; HCT 45.4 % (39.0-53.0); HGB 14.9 gm/dL (13.0-17.5); Lymphocytes # (A) 5.1 k/uL (1.0-4.8); Lymphocytes % (A) 49 %; MCH 30.9 pg (25.0-35.0); MCHC 32.8 g/dL (31.0-37.0); MCV 94.3 fL (80.0-100.0); Mean Platelet Volume 9.2; Monocytes # (A) 0.4 k/uL (0-1.0); Monocytes % (A) 4 %; Neutrophils # (A) 4.4 k/uL (1.3-7.7); Neutrophils % (A) 42 %; RBC 4.81 m/uL (4.30-5.90); RDW 15.3 % (11.5-15.5); WBC 10.6 k/uL (3.8-10.6)
[2019-10-21 17:38] LABS: Partial Thromboplastin Time 26.6 sec (22.0-30.0); Prothrombin Time 10.2 sec (9.0-12.0)
[2019-10-21 17:48] LABS: Albumin 3.9 g/dL (3.5-5.0); Calcium 9.2 mg/dL (8.4-10.2); Potassium 4.2 mmol/L (3.5-5.1); Total Bilirubin 0.6 mg/dL (0.2-1.3); Total Protein 7.8 g/dL (6.3-8.2)
[2019-10-21 17:59] LABS: Platelet Count 21 k/uL (150-450)
--- NOTE | 2019-10-21 18:07 | XR ---
EXAMINATION TYPE: XR chest 2V DATE OF EXAM: 10/21/2019 COMPARISON: 05/30/2016 HISTORY: Difficulty breathing TECHNIQUE: FINDINGS: There is some mild interstitial infiltrate in the left upper lobe and left lower lobe. The right lung is fairly clear. There is no heart failure. There are chest leads. Heart size is normal. C ostophrenic angles are clear. IMPRESSION: There is some patchy interstitial pneumonia in the left lung that is new compared to last exam. Normal heart.
[2019-10-21 19:22] LABS: Appearance,Urine Clear (Clear); Bilirubin,Urine Negative (Negative); Blood,Urine Trace (Negative); Color,Urine Yellow; Glucose,Urine (UA) Negative (Negative); Ketones,Urine Negative (Negative); Leukocyte Esterase,Urine Negative (Negative); Nitrite,Urine Negative (Negative); PH, Urine 5.5 (5.0-8.0); Protein,Urine Trace (Negative); RBC,Urine 1 /hpf (0-5); Specific Gravity,Urine 1.012 (1.001-1.035); Urobilinogen,Urine <2.0 mg/dL (<2.0); WBC,Urine <1 /hpf (0-5)
[2019-10-21] MEDS ORDERED: PNEUMONIA PROTOCOL UTILIZED 1 EACH MISC PO PRN (19:25)
[2019-10-21] MEDS ORDERED: LEVOFLOXACIN 750MG-D5W PMX 750 MG in DEXTROSE/WATER 1 150ML.BAG IVPB STA (19:25)
[2019-10-21] MEDS ORDERED: PIPERACILLIN-TAZOBACTAM 3.375 GM in SODIUM CHLORIDE 0.9% 100 ML IVPB STA (19:25)
[2019-10-21] MEDS: SODIUM CHLORIDE 0.9% 1,000 ML IV SCH (19:33)
[2019-10-21] MEDS: IPRATROPIUM-ALBUTEROL 3 ML NEB INHALATION SCH (21:27)
[2019-10-21] MEDS ORDERED: LEVOFLOXACIN 750MG-D5W PMX 750 MG in DEXTROSE/WATER 1 150ML.BAG IVPB ONE (23:00)
[2019-10-21] MEDS: MAG HYDROX/AL HYDROX/SIMETH 30 ML CUP PO SCH (23:17)
[2019-10-22] MEDS: IPRATROPIUM-ALBUTEROL 3 ML NEB INHALATION SCH ×6 (01:27→21:38)
[2019-10-22] MEDS ORDERED: PIPERACILLIN-TAZOBACTAM 3.375 GM in SODIUM CHLORIDE 0.9% 100 ML IVPB SCH (04:00)
[2019-10-22] MEDS: ATORVASTATIN 40 MG TAB PO SCH (07:40)
[2019-10-22] MEDS: PANTOPRAZOLE 40 MG TABLET PO SCH (07:40)
[2019-10-22] MEDS: METOPROLOL TARTRATE 50 MG TAB PO SCH ×2 (07:40→17:19)
[2019-10-22] MEDS: MAG HYDROX/AL HYDROX/SIMETH 30 ML CUP PO SCH ×2 (07:40→20:51)
[2019-10-22] MEDS: ASPIRIN 81 MG PO SCH (07:40)
--- NOTE | 2019-10-22 08:43 | XR ---
EXAMINATION TYPE: XR chest 2V DATE OF EXAM: 10/22/2019 COMPARISON: 10/21/2019 TECHNIQUE: PA and lateral views submitted. HISTORY: Follow-up pneumonia FINDINGS: Hyperinflation compatible COPD. Subsegmental changes at the left lung base are noted. Perihilar lay es are improved. No pneumothorax or interstitial edema. Hypertrophic and degenerative change of the s pine. Arthropathy shoulders. IMPRESSION: 1. Resolving perihilar and lower lobe infiltrate.
[2019-10-22] MEDS: guaiFENesin SYRUP 100MG/5ML 200 MG/10 ML CUP PO SCH ×4 (10:47→20:51)
[2019-10-22] MEDS: ACYCLOVIR 800 MG TAB PO SCH ×2 (10:48→20:52)
[2019-10-22] MEDS: SODIUM CHLORIDE 0.9% 1,000 ML IV SCH ×2 (10:51→20:53)
[2019-10-22] MEDS: methylPREDNISolone SOD SUCCI 40 MG/ML 1 ML VIAL IV SCH ×2 (14:03→17:19)
[2019-10-22] MEDS: PILOCARPINE 5 MG TAB PO SCH ×2 (14:03→20:52)
--- NOTE | 2019-10-22 14:03 | CONS ---
CONSULTATION PULMONARY/CRITICAL CARE CONSULTATION: DATE OF SERVICE: October 22, 2019 REASON FOR CONSULTATION: Shortness of breath. This is a 69-year-old male with no history of underlying lung disease. He does have history of myelodysplastic syndrome and in January of this past year, the patient underwent an allogeneic stem cell transplant. The donor was his son. Anyway, the patient comes in with complaints of increasing shortness of breath, weakness, cough, muscle aches, joint aches, runny nose, and diarrhea. He has not been feeling well for some time. He apparently saw his doctor 3 or 4 days ago, was started on some doxycycline but he did not really improve. The cough is dry. There is no fever. He states that he is feeling better today than he did yesterday when he came in. He presented to the emergency room at 4:00 p.m. on the 21 of October. Again, he is a nonsmoker and states that he does not have history of any lung issues. He took the doxycycline for a couple of days and was not getting any better and then came into the emergency room to be evaluated. He was apparently told in the ER that he had pneumonia. Looking at his chest x-ray, I do not really see a significant marlon infiltrate and more than likely what he really has is an acute infectious bronchitis and not pneumonia. Anyway as mentioned, he is feeling much better. HOME MEDICATIONS: His home medications include aspirin, metoprolol, Lipitor, Ultram, Maalox, and Prilosec. ALLERGIES: Allergies are denied. MEDICAL HISTORY: Medical history includes CAD, angina pectoris, GI bleed, hyperlipidemia, hypertension, syncope, and myelodysplastic syndrome. The myelodysplastic syndrome was treated with allogeneic bone marrow transplant in January 2019. The donor was his son, Chuy. SURGICAL HISTORY: Surgical history include heart catheterization with stent, hernia repair, left hand surgery, left femur surgery, and some other minor orthopedic procedures. The patient has had three stents in his coronary arteries. SOCIAL HISTORY: Social history is significant that he is a life-long nonsmoker. He drinks alcohol occasionally. No illicit drug use. FAMILY HISTORY: Family history is positive for a mother with heart failure and a father with cancer. REVIEW OF SYSTEMS: CONSTITUTIONAL: Muscle aches, joint aches, weakness. NEUROLOGIC: Negative. HEENT: Negative. CARDIOVASCULAR: Negative. PULMONARY: Shortness of breath. Dry cough. Tightness in his chest. GI: Nausea, diarrhea. : Negative. RHEUMATOLOGIC: Negative. IMMUNOLOGIC: Negative. ENDOCRINOLOGIC: Negative. DERMATOLOGIC: Negative. PHYSICAL EXAMINATION: VITAL SIGNS: Current vital signs are reviewed. Temperature is 98.3, heart rate 77, respiratory rate 16, blood pressure 123/71, room air saturation 95-96%. GENERAL: He appears in no acute distress. There is no audible wheezing, use of accessory muscles or conversational dyspnea. HEENT: Grossly unremarkable. No supplemental oxygen noted. NECK: Supple. Full range of motion. No adenopathy. Neck veins are flat. CARDIOVASCULAR: Examination reveals regular rhythm and rate. His heart rate is 82 beats per minute. S1, S2 normal. LUNGS: Reveal a few scattered, course rhonchi. There are some mild expiratory wheezes. Breath sounds are equal bilaterally. No crackles. ABDOMEN: Soft. Bowel sounds are heard. EXTREMITIES: Are intact. No cyanosis, clubbing or edema. SKIN: Without rash. NEUROLOGIC: Examination brief but nonfocal. Chest x-ray is reviewed. The radiologist thought there were some atelectatic changes. There are minimal infiltrates at the left lung base. Really, the chest x-ray in my opinion is relatively normal. LAB DATA: Labs are reviewed. White count 10.6, hemoglobin 14.9, hematocrit 45.4, platelet count 21,000. PT, INR, PTT normal. Sodium 136, potassium 4.2, chloride 109, CO2 17, BUN and creatinine were 22 and 1.07. Anion gap was 10. The rest of his comprehensive metabolic profile looks pretty good. BNP was 514. Troponins were negative. Urine was negative. Influenza studies were negative. Lactic acid 0.8. Microbiologic studies are negative. MEDICATIONS: Medications are reviewed. He is currently on acyclovir, aspirin, Lipitor, guaifenesin syrup, DuoNeb, Levaquin, Maalox, metoprolol, Protonix, Saligin, sirolimus 2 mg daily, sulfamethoxazole twice a day and IV, and Ultram. ASSESSMENT: 1. Acute bronchitis with reactive bronchospasm and bronchial inflammation, doubt significant pneumonia. 2. Myelodysplastic syndrome, status post allogeneic bone marrow transplantation, January 2019. 3. History of CD with previous multiple stent placements. 4. History of angina pectoris. 5. History of GI bleed. 6. History of hyperlipidemia. 7. History of hypertension. 8. Prior history of syncope. 9. Multiple orthopedic procedures. PLAN: Please see my orders. Will add some updrafts to this patient. The patient will need some corticosteroids as well. Additional recommendations and suggestions are forthcoming. Antibiotics can be deescalated. We will continue to follow. Prognosis is guarded. MMODL / IJN: [id number] /
[2019-10-22] MEDS ORDERED: LEVOFLOXACIN 750 MG TAB PO SCH (20:00)
[2019-10-22 20:27] LABS: Glucose,Whole Blood 161 mg/dL (75-99)
[2019-10-22] MEDS: INSULIN ASPART (NovoLOG) 100 UNIT/ML VIAL SQ SCH (20:53)
[2019-10-22] MEDS ORDERED: ZOLPIDEM 5 MG TAB PO ONE (21:11)
[2019-10-23] MEDS: guaiFENesin SYRUP 100MG/5ML 200 MG/10 ML CUP PO SCH ×4 (00:06→13:43)
[2019-10-23] MEDS: methylPREDNISolone SOD SUCCI 40 MG/ML 1 ML VIAL IV SCH ×3 (00:06→11:58)
[2019-10-23 07:35] LABS: Glucose,Whole Blood 188 mg/dL (75-99)
[2019-10-23] MEDS: MAG HYDROX/AL HYDROX/SIMETH 30 ML CUP PO SCH (07:47)
[2019-10-23] MEDS: ATORVASTATIN 40 MG TAB PO SCH (07:47)
[2019-10-23] MEDS: traMADol 50 MG TAB PO PRN ×2 (07:47→13:43)
[2019-10-23] MEDS: PANTOPRAZOLE 40 MG TABLET PO SCH (07:47)
[2019-10-23] MEDS: METOPROLOL TARTRATE 50 MG TAB PO SCH (07:47)
[2019-10-23] MEDS: ASPIRIN 81 MG PO SCH (07:47)
[2019-10-23] MEDS: INSULIN ASPART (NovoLOG) 100 UNIT/ML VIAL SQ SCH ×2 (07:48→11:59)
[2019-10-23] MEDS: PILOCARPINE 5 MG TAB PO SCH ×2 (07:48→13:43)
[2019-10-23] MEDS: ACYCLOVIR 800 MG TAB PO SCH (07:49)
[2019-10-23] MEDS ORDERED: SIROLIMUS 2 MG PO SCH (08:00)
[2019-10-23] MEDS ORDERED: SULFAMETHOX-TMP 400-80MG 1 EACH TAB PO SCH (08:00)
[2019-10-23 08:16] VITALS: RESP 17
[2019-10-23] MEDS: IPRATROPIUM-ALBUTEROL 3 ML NEB INHALATION SCH ×3 (09:02→16:05)
[2019-10-23 11:47] LABS: Glucose,Whole Blood 172 mg/dL (75-99)
--- NOTE | 2019-10-23 12:23 | P.DS ---
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 Presents because of respiratory symptoms for 8 days duration, patient main problem is dry cough associated with trouble breathing but no chest pain. Sent by his PCP Dr. Ruano. Patient was admitted to the hospital for concerns for left lower lobe and perihilar pneumonia however repeat chest x-ray from this morning showing improvement. Patient says that he is about 50% better but he is not ready to be discharged home today. Patient has history of myelodysplastic syndrome is status post stem cell transplantation on 02/26/2019, he is on sirolimus. Patient denies smoking, alcohol or illicit tracts Patient was treated with Levaquin and steroids, he is evaluated by co pilot. Patient's symptoms completely resolved on the day of discharge she denies dyspnea, no chest pain, no coughing, no runny nose. No muscle or joint pain, nor any diarrhea and he says he has regular bowel movements. No abdominal pain hysterectomy that well and he is eager to go home Problems and management plan were discussed with the patient and he verbalized understanding and acceptance Patient was found stable and can be discharged home however he needs follow-up as an outpatient. Patient was instructed to follow up with PCP Dr. Ruano within one week and patient agrees. Patient states he'll call make appointments Gen: patient is a AAOx3, no distress CVS: S1-S2, RRR, no murmur Lungs: B/L CTA, no wheezing Abdomen: soft, no distention, no tenderness, positive bowel sounds Extremity: no leg edema or induration Time spent more than 35 minutes Patient Condition at Discharge: Fair Plan - Discharge Summary Discharge Rx Participant: Yes New Discharge Prescriptions: No Action Doxycycline Monohydrate 100mg Tablet 100 mg PO BID Acyclovir [Zovirax] 800 mg PO BID@1000,2200 Sirolimus 2 mg PO DAILY@0800 Pilocarpine [Salagen] 5 mg PO TID@0800,1400,2200 Mag Plus Protein 2 tab PO TID@0800,1400,2200 Sulfamethox-Tmp 400-80Mg [Bactrim SS 400-80 mg] 1 tab PO DAILY@0800 Metoprolol Tartrate [Lopressor] 12.5 mg PO TID guaiFENesin [guaiFENesin Oral Solution] 200 mg PO Q4H Discharge Medication List Acyclovir [Zovirax] 800 mg PO BID@1000,2200 10/21/19 [History] Doxycycline Monohydrate 100mg Tablet 100 mg PO BID 10/21/19 [History] Mag Plus Protein 2 tab PO TID@0800,1400,2200 10/21/19 [History] Metoprolol Tartrate [Lopressor] 12.5 mg PO TID 10/21/19 [History] Pilocarpine [Salagen] 5 mg PO TID@0800,1400,2200 10/21/19 [History] Sirolimus 2 mg PO DAILY@0800 10/21/19 [History] Sulfamethox-Tmp 400-80Mg [Bactrim SS 400-80 mg] 1 tab PO DAILY@0800 10/21/19 [History] guaiFENesin [guaiFENesin Oral Solution] 200 mg PO Q4H 10/21/19 [History] Follow up Appointment(s)/Referral(s): Tunde Ruano DO [Primary Care Provider] - 1-2 days
--- NOTE | 2019-10-23 12:36 | P.HPIM ---
History of Present Illness This is a pleasant 69 years old male with past medical history of GI bleed, hypertension, hyperlipidemia, syncope, myelodysplastic syndrome, coronary artery disease status post stent placement 3. Presents because of respiratory symptoms for 8 days duration, patient main problem is dry cough associated with trouble breathing but no chest pain. Sent by his PCP Dr. Ruano. Patient was admitted to the hospital for concerns for left lower lobe and perihilar pneumonia however repeat chest x-ray from this morning showing improvement. Patient says that he is about 50% better but he is not ready to be discharged home today. Patient has history of myelodysplastic syndrome is status post stem cell transplantation on 02/26/2019, he is on sirolimus. Patient denies smoking, alcohol or illicit tracts Vitals stable. On the presentation patient was tachycardiac with heart rate 103-110. Labs including CBC, BMP and liver enzymes were unremarkable, no leukocytosis. Influenza was is negative. Was started on Levaquin. And Zosyn. Review of Systems CONSTITUTIONAL: No fever, no malaise, no fatigue. HEENT: No recent visual problems or hearing problems. Denied any sore throat. CARDIOVASCULAR: No orthopnea, PND, no palpitations, no syncope. PULMONARY: no hemoptysis. GASTROINTESTINAL: No diarrhea, no nausea, no vomiting, no abdominal pain. Normoactive bowel sounds. NEUROLOGICAL: No headaches, no weakness, no numbness. HEMATOLOGICAL: Denies any bleeding or petechiae. GENITOURINARY: Denies any burning micturition, frequency, or urgency. MUSCULOSKELETAL/RHEUMATOLOGICAL: Denies any joint pain, swelling, or any muscle pain. ENDOCRINE: Denies any polyuria or polydipsia. Past Medical History Past Medical History: Coronary Artery Disease (CAD), Chest Pain / Angina, GI Bleed, Hyperlipidemia, Hypertension, Syncope Additional Past Medical History / Comment(s): MDS History of Any Multi-Drug Resistant Organisms: None Reported Past Surgical History: Heart Catheterization With Stent, Hernia Repair, Orthopedic Surgery Additional Past Surgical History / Comment(s): CARDIAC STENTS X3, SHENA INGUINAL HERNIA REPAIRS, LT HAND SX, LT FEMUR BROKEN X2 STEVEN IN PLACE Past Anesthesia/Blood Transfusion Reactions: No Reported Reaction Date of Last Stent Placement:: UNK Past Psychological History: No Psychological Hx Reported Additional Psychological History / Comment(s): PT LIVES IN OWN HOME WITH HIS . IS INDEPENDANT OWNS HIS OWN PLUMBING BUISNESS. NO OUTSIDE SERVICES. Smoking Status: Never smoker Past Alcohol Use History: None Reported, Occasional Past Drug Use History: None Reported - Past Family History Mother Family Medical History: Congestive Heart Failure (CHF) Father Family Medical History: Cancer Medications and Allergies Home Medications Medication Instructions Recorded Confirmed Type Acyclovir [Zovirax] 800 mg PO BID@1000,2200 10/21/19 10/21/19 History Doxycycline Monohydrate 100mg 100 mg PO BID 10/21/19 10/21/19 History Tablet Mag Plus Protein 2 tab PO TID@0800,1400,2200 10/21/19 10/21/19 History Metoprolol Tartrate [Lopressor] 12.5 mg PO TID 10/21/19 10/21/19 History Pilocarpine [Salagen] 5 mg PO TID@0800,1400,2200 10/21/19 10/21/19 History Sirolimus 2 mg PO DAILY@0800 10/21/19 10/21/19 History Sulfamethox-Tmp 400-80Mg [Bactrim 1 tab PO DAILY@0800 10/21/19 10/21/19 History SS 400-80 mg] guaiFENesin [guaiFENesin Oral 200 mg PO Q4H 10/21/19 10/21/19 History Solution] Allergies Allergy/AdvReac Type Severity Reaction Status Date / Time No Known Allergies Allergy Verified 10/21/19 19:59 Physical Exam Vitals: Vital Signs Temp Pulse Pulse Resp BP BP Pulse Ox 10/22/19 02:00 98.2 F 93 121/73 95 10/21/19 21:40 98.4 F 94 124/73 95 10/21/19 21:36 94 10/21/19 21:27 95 94 L 10/21/19 20:10 98.4 F 104 H 20 136/81 10/21/19 19:39 101 H 18 142/82 95 10/21/19 19:10 95 22 139/74 94 L 10/21/19 19:00 102 H 18 94 L 10/21/19 18:50 101 H 18 94 L 10/21/19 18:40 105 H 17 138/75 95 10/21/19 18:30 99 18 96 01/22/20 18:20 104 H 21 95 10/21/19 18:14 86 18 10/21/19 18:10 99 18 99 10/21/19 18:05 84 18 10/21/19 17:50 90 20 95 10/21/19 17:40 92 20 136/80 93 L 10/21/19 17:30 98 10/21/19 16:16 98.0 F 103 H 18 152/79 96 Intake and Output 10/21/19 10/22/19 10/22/19 22:59 06:59 14:59 Intake Total 250 Balance 250 Intake: Intake, IV Titration 250 Amount Levofloxacin 750Mg-D5w 150 Pmx 750 mg In Dextrose/ Water 1 150ml.bag @ 100 mls/hr IVPB ONCE ONE Rx#: [id number] Piperacillin-Tazobactam 3 100 .375 gm In Sodium Chloride 0.9% 100 ml @ 25 mls/hr IVPB Q8H [facility] Rx#: [id number] Other: Voiding Method Toilet # Voids 2 Weight 59.965 kg GENERAL: The patient is alert and oriented x3, not in any acute distress. Well developed, well nourished. -HEENT: Pupils are round and equally reacting to light. EOMI. No scleral icterus. No conjunctival pallor. Normocephalic, atraumatic. No pharyngeal erythema. No thyromegaly. Conjunctivitis on both eyes and pharyngitis CARDIOVASCULAR: S1 and S2 present. No murmurs, rubs, or gallops. PULMONARY: Chest is clear to auscultation, no wheezing or crackles. ABDOMEN: Soft, nontender, nondistended, normoactive bowel sounds. No palpable organomegaly. MUSCULOSKELETAL: No joint swelling or deformity. EXTREMITIES: No cyanosis, clubbing, or pedal edema. NEUROLOGICAL: Gross neurological examination did not reveal any focal deficits. SKIN: No rashes. No petechiae Results CBC & Chem 7: 10/21/19 17:15 10/21/19 17:15 Labs: Abnormal Lab Results - Last 24 Hours (Table) 10/21/19 10/21/19 10/21/19 Range/Units 17:15 17:15 18:31 Plt Count 21 L (150-450) k/uL Lymphocytes # 5.1 H (1.0-4.8) k/uL Basophils # 0.3 H (0-0.2) k/uL Sodium 136 L (137-145) mmol/L Chloride 109 H (98-107) mmol/L Carbon Dioxide 17 L (22-30) mmol/L BUN 22 H (9-20) mg/dL Glucose 116 H (74-99) mg/dL Alkaline Phosphatase 223 H (38-126) U/L Urine Protein Trace H (Negative) Urine Blood Trace H (Negative) Thrombosis Risk Factor Assmnt - Choose All That Apply Each Factor Represents 1 point: Serious lung disease incl. pneumonia (< 1month) Thrombosis Risk Factor Assessment Total Risk Factor Score: 1 Thrombosis Risk Factor Assessment Level: Low Risk Assessment and Plan Assessment: Suspicious left community-acquired pneumonia, however repeat chest x-ray showed improvement. Most likely patient has bronchitis with upper respiratory tract i nfection, pharyngitis and conjunctivitis, concerning for viral syndrome Mylodysplastic syndrome, status post stent cell transplant from his son on 01/2019 on immunosuppressive therapy Hypertension Hyperlipidemia History of coronary artery disease status post stents 3 History of GI bleed History of syncope Plan: This is a pleasant 69 years old male who presents because of possible pneumonia and bronchitis, continue with antibiotics, bronchodilators and oxygen.Pulmonary consult. Discontinue Zosyn, continue with Levaquin. Continue with IV hydration. Labs and medication were reviewed.. Continue same treatment. Continue with symptomatic treatment. Resume home medication. Monitor lytes and vitals. DVT and GI prophylaxis. Further recommendations of the clinical course of the patient DVT prophylaxis: Subcutaneous heparin GI Prophylaxis: Pepcid
[2019-10-23 14:44] VITALS: BP 129/62; PULSE 91; TEMP 97.9
--- NOTE | 2019-10-23 15:26 | P.PN ---
Subjective Progress Note Date: 10/23/19 Principal diagnosis: Acute bronchitis with reactive bronchospasm and bronchial inflammation no significant pneumonia On 10/23/2019 patient seen in follow-up on medical surgical floor. Doing well, improving, breathing easier, he is on room air is pulse ox is 95%, hemodynamically stable, no fever or chills, cultures showed no growth. No new labs today, no new chest x-rays, he has been treated with IV steroids, Levaquin for antibiotic coverage, and Bactrim was added today clinically patient is improving, and he is being discharged home today. Objective - Vital Signs Vital signs: Vital Signs Temp 97.9 F 10/23/19 14:43 Pulse 91 10/23/19 14:43 Resp 17 10/23/19 14:43 BP 129/62 10/23/19 14:43 Pulse Ox 95 10/23/19 14:43 Intake & Output 10/22/19 10/23/19 10/23/19 18:59 06:59 18:59 Intake Total 828 1140 420 Balance 828 1140 420 Intake: Intake, IV Titration 720 420 Amount Sodium Chloride 0.9% 1, 720 420 000 ml @ 60 mls/hr IV . [id number] [facility] Rx#:[id number] Oral 828 420 Other: Voiding Method Toilet Toilet Toilet # Voids 1 1 - Exam GENERAL EXAM: Alert, very pleasant, 69-year-old white male, on room air, with pulse ox of 95% comfortable in no apparent distress. HEAD: Normocephalic/atraumatic. EYES: Normal reaction of pupils, equal size. Conjunctiva pink, sclera white. NOSE: Clear with pink turbinates. THROAT: No erythema or exudates. NECK: No masses, no JVD, no thyroid enlargement, no adenopathy. CHEST: No chest wall deformity. Symmetrical expansion. LUNGS: Equal air entry with no crackles, wheeze, rhonchi or dullness. CVS: Regular rate and rhythm, normal S1 and S2, no gallops, no murmurs, no rubs ABDOMEN: Soft, nontender. No hepatosplenomegaly, normal bowel sounds, no guarding or rigidity. EXTREMITIES: No clubbing, no edema, no cyanosis, 2+ pulses and upper and lower extremities. MUSCULOSKELETAL: Muscle strength and tone normal. SPINE: No scoliosis or deformity SKIN: No rashes CENTRAL NERVOUS SYSTEM: Alert and oriented -3. No focal deficits, tone is normal in all 4 extremities. PSYCHIATRIC: Alert and oriented -3. Appropriate affect. Intact judgment and insight. - Labs CBC & Chem 7: 10/21/19 17:15 10/21/19 17:15 Labs: Abnormal Lab Results - Last 24 Hours (Table) 10/22/19 10/23/19 10/23/19 Range/Units 20:15 07:24 11:36 POC Glucose (mg/dL) 161 H 188 H 172 H (75-99) mg/dL Microbiology - Last 24 Hours (Table) 10/21/19 17:15 Blood Culture - Preliminary Blood No Growth after 24 hours Assessment and Plan Plan: Assessment: #1. Acute bronchitis with reactive bronchospasm and bronchial inflammation, doubt significant pneumonia #2. Myelodysplastic syndrome, status post allogeneic bone marrow transplantation, in January 2019 #3. History of her artery disease with previous multiple stent placements #4. History of angina pectoris #5. History of GI bleeding #6. History of hyperlipidemia #7. History of hypertension #8. History of syncope #9. Multiple orthopedic procedures Plan: Clinically patient is improving, breathing easier, he is on room air, no fever or chills, was bronchospastic and dyspneic on today's exam, from pulmonary perspective patient is stable for discharge home today he can finish outpatient course of oral antibiotics, prednisone taper, and see Dr. Ignacio on outpatient basis for follow-up in 7-10 days. I performed a history & physical examination of the patient and discussed their management with my nurse practitioner, Laurence Herman. I reviewed the nurse practitioner's note and agree with the documented findings and plan of care. Lung sounds are positive for clear breath sounds. The findings and the impression was discussed with the patient. I attest to the documentation by the nurse practitioner. Time with Patient: Less than 30
== END 2019-10-23 16:15 | disposition home or self-care (01) | DRG 202 ==
LOC: EC 16:04 → 4SSUR 19:29
PROVIDERS: ADMIT Internal Medicine; ATTEND Internal Medicine
DX: J20.9 Acute bronchitis, unspecified (principal); Z94.84 Stem cells transplant status; D46.9 Myelodysplastic syndrome, unspecified; E78.5 Hyperlipidemia, unspecified; H10.9 Unspecified conjunctivitis; I10 Essential (primary) hypertension; I25.10 Atherosclerotic heart disease of native coronary artery without angina pectoris; B34.9 Viral infection, unspecified; Z79.82 Long term (current) use of aspirin; Z79.899 Other long term (current) drug therapy; Z80.9 Family history of malignant neoplasm, unspecified; Z82.49 Family history of ischemic heart disease and other diseases of the circulatory system; Z95.5 Presence of coronary angioplasty implant and graft; Z87.19 Personal history of other diseases of the digestive system
CPT/HCPCS: 36415; 71046; 80053; 81001; 82550; 83605; 83735; 83880; 84484; 85025; 85610; 85730; 87040; 87502; 93005; 94640; 94760; 96361; 96365; 99285

== ENCOUNTER 2019-11-07 05:02 | Inpatient (IN) | payer MEDICARE ==
[2019-11-07] MEDS ORDERED: MORPHINE SULFATE 4 MG/ML SYRINGE IV STA (05:56)
[2019-11-07] MEDS ORDERED: SODIUM CHLORIDE 0.9% 1,000 ML IV STA (05:56)
--- NOTE | 2019-11-07 06:24 | ED ---
Fall HPI - General Chief Complaint: Fall Stated Complaint: vomiting Time Seen by Provider: 11/07/19 05:07 Source: EMS Mode of arrival: EMS - History of Present Illness Initial Comments: Aditya is a pleasant 69yo male with extensive past medical history presents the ER today with multiple complaints. Patient reports that yesterday evening he went to dinner with the family, he reports he ate clams and upon returning home he became nauseated, patient reports around 9 PM last night he had the urge to vomit and got up to walk to the bathroom however didn't make it he did have v omiting and slipping and falling in the vomit landing on his right side resulting in pain in his right hip and right shoulder. Patient reports he has attempted to ambulate her at the night but it's cause significant pain. Patient also reports decreased range of motion of his right shoulder secondary to pain radius history of injury or surgery to either of these joints he does have a history of injury to the left femur with subsequent surgical repair. Patient reports that throughout the night he continued to have nausea vomiting and diarrhea concerning for food poisoning or possible reaction to the food. The food was also read by his daughter who is not ill. is concerning may have developed a ALLERGY or reaction to seafood specifically clams after his stem cell transplant last year. Patient reports he is only clams 2 times since his transplant both times became violently ill such as this. Both times other members of his family ate the same meal without becoming ill. - Related Data Home Medications Medication Instructions Recorded Confirmed Acyclovir [Zovirax] 800 mg PO BID@1000,2200 10/21/19 10/21/19 Doxycycline Monohydrate 100mg 100 mg PO BID 10/21/19 10/21/19 Tablet Mag Plus Protein 2 tab PO TID@0800,1400,0 10/21/19 10/21/19 Pilocarpine [Salagen] 5 mg PO TID@0800,1400,219910/21/19 10/21/19 Sirolimus 2 mg PO DAILY@0800 10/21/19 10/21/19 Sulfamethox-Tmp 400-80Mg [Bactrim 1 tab PO DAILY@0800 10/21/19 10/21/19 SS 400-80 mg] guaiFENesin [guaiFENesin Oral 200 mg PO Q4H 10/21/19 10/21/19 Solution] Previous Rx's Medication Instructions Recorded Levofloxacin [Levaquin] 500 mg PO DAILY #3 tab 10/23/19 Metoprolol Tartrate [Lopressor] 50 mg PO AC-BID #60 tab 10/23/19 predniSONE 10 mg PO DIRECTED #18 tab 10/23/19 Allergies Allergy/AdvReac Type Severity Reaction Status Date / Time No Known Allergies Allergy Verified 10/21/19 19:59 Review of Systems ROS Statement: Those systems with pertinent positive or pertinent negative responses have been documented in the HPI. ROS Other: All systems not noted in ROS Statement are negative. Past Medical History Past Medical History: Coronary Artery Disease (CAD), Chest Pain / Angina, GI Bleed, Hyperlipidemia, Hypertension, Syncope Additional Past Medical History / Comment(s): MDS History of Any Multi-Drug Resistant Organisms: None Reported Past Surgical History: Heart Catheterization With Stent, Hernia Repair, Orthopedic Surgery Additional Past Surgical History / Comment(s): CARDIAC STENTS X3, SHENA INGUINAL HERNIA REPAIRS, LT HAND SX, LT FEMUR BROKEN X2 STEVEN IN PLACE Past Anesthesia/Blood Transfusion Reactions: No Reported Reaction Date of Last Stent Placement:: UNK Past Psychological History: No Psychological Hx Reported Smoking Status: Never smoker Past Alcohol Use History: None Reported, Occasional Past Drug Use History: None Reported - Past Family History Mother Family Medical History: Congestive Heart Failure (CHF) Father Family Medical History: Cancer General Exam - General Exam Comments Initial Comments: Physical Exam GENERAL: Chronically ill appearing male, appears older than stated age, appears uncomfortable and dehydrated HENT: Normocephalic, Atraumatic. EYES: PERRL, EOMI PULMONARY: Unlabored respirations. CARDIOVASCULAR: RRR ABDOMEN: Soft and nontender with normal bowel sounds. SKIN: Skin is clear with no lesions or rashes and otherwise unremarkable. : Deferred NEUROLOGIC: Patient is alert and oriented x3. Moving all extremities spontaneously MUSCULOSKELETAL: Decreased ROM right upper extremity secondary to pain, no obvious injury or deformity Decreased ROM right lower extremity secondary to pain, leg is not internally rotated - cannot assess the leg is shortened due to the fact that the opposing leg is significantly shorter due to previous surgery PSYCHIATRIC: Normal psychiatric evaluation. Limitations: no limitations Course Vital Signs 11/07/19 11/07/19 11/07/19 05:14 06:07 07:00 Temperature 99.9 F H 100.2 F H Pulse Rate 114 H 100 Respiratory 18 18 18 Rate Blood Pressure 108/70 129/76 120/68 O2 Sat by Pulse 94 L 97 Oximetry Medical Decision Making - Medical Decision Making The patient was seen and evaluated, history was obtained from patient, family at bedside History and physical exam are concerning for right hip pain, right shoulder pain, patient appears dehydrated on arrival Labs and imaging were obtained Imaging concerning for a chip fracture of the greater trochanter, labs consistent with dehydration mild leukocytosis While in the emergency department patient did develop a fever given his history of myelodysplastic syndrome status post stem cell transplant he is immunocompromised blood cultures were obtained influenza swab was obtained and resulted negative Care was discussed with Dr[facility] from whom the patient has established care. Recommends pain management admission for mental management. This is likely a nonoperative injury. Patient will be admitted for pain management, IV fluid resuscitation, physical therapy evaluation. Patient care was discussed with the nurse practitioner Paige from [facility]. Accepts the admission. - Lab Data Result diagrams: 11/07/19 05:23 11/07/19 05:23 Lab Results 11/07/19 11/07/19 11/07/19 Range/Units 05:23 05:23 07:05 WBC 15.1 H (3.8-10.6) k/uL RBC 4.37 (4.30-5.90) m/uL Hgb 13.9 (13.0-17.5) gm/dL Hct 41.7 (39.0-53.0) % MCV 95.5 (80.0-100.0) fL MCH 31.9 (25.0-35.0) pg MCHC 33.4 (31.0-37.0) g/dL RDW 15.9 H (11.5-15.5) % Sodium 134 L (137-145) mmol/L Potassium 4.4 (3.5-5.1) mmol/L Chloride 105 (98-107) mmol/L Carbon Dioxide 19 L (22-30) mmol/L Anion Gap 10 mmol/L BUN 20 (9-20) mg/dL Creatinine 1.39 H (0.66-1.25) mg/dL Est GFR (CKD-EPI)AfAm 60 (>60 ml/min/1.73 sqM) Est GFR (CKD-EPI)NonAf 52 (>60 ml/min/1.73 sqM) Glucose 183 H (74-99) mg/dL Calcium 9.0 (8.4-10.2) mg/dL Total Bilirubin 0.6 (0.2-1.3) mg/dL AST 52 (17-59) U/L ALT 48 (4-49) U/L Alkaline Phosphatase 173 H (38-126) U/L Total Protein 7.2 (6.3-8.2) g/dL Albumin 3.9 (3.5-5.0) g/dL Lipase 48 (23-300) U/L Influenza Type A RNA Not Detected (Not Detectd) Influenza Type B (PCR) Not Detected (Not Detectd) Disposition Clinical Impression: Myelodysplastic syndrome, Fall, Nausea vomiting and diarrhea, Fever, Dehydrati on Disposition: ADMITTED IP TO THIS HOSP Condition: Serious Referrals: Tunde Ruano DO [Primary Care Provider] - 1-2 days
[2019-11-07 06:30] LABS: Basophils # (A) 0.1 k/uL (0-0.2); Basophils % (A) 1 %; Eosinophils # (A) 0.1 k/uL (0-0.7); Eosinophils % (A) 1 %; HCT 41.7 % (39.0-53.0); HGB 13.9 gm/dL (13.0-17.5); Lymphocytes # (A) 3.6 k/uL (1.0-4.8); Lymphocytes % (A) 24 %; MCH 31.9 pg (25.0-35.0); MCHC 33.4 g/dL (31.0-37.0); MCV 95.5 fL (80.0-100.0); Mean Platelet Volume 9.6; Monocytes # (A) 0.4 k/uL (0-1.0); Monocytes % (A) 3 %; Neutrophils # (A) 10.6 k/uL (1.3-7.7); Neutrophils % (A) 70 %; RBC 4.37 m/uL (4.30-5.90); RDW 15.9 % (11.5-15.5); WBC 15.1 k/uL (3.8-10.6)
--- NOTE | 2019-11-07 06:31 | XR ---
EXAMINATION TYPE: XR shoulder complete RT DATE OF EXAM: 11/07/2019 COMPARISON: NONE HISTORY: Pain TECHNIQUE: 3 views FINDINGS: I see no fracture nor dislocation. Glenohumeral joint is intact. There are no pathologic ca lcifications. IMPRESSION: Negative right shoulder exam.
--- NOTE | 2019-11-07 06:33 | XR ---
EXAMINATION TYPE: XR Hip Complete RT DATE OF EXAM: 11/07/2019 COMPARISON: NONE HISTORY: Fall. Hip pain. TECHNIQUE: 2 views FINDINGS: There is lucent line projected over the greater trochanter suggestive of a nondisplaced to centimeter chip fracture. There is no dislocation. Acetabulum is intact. IMPRESSION: There is probably a nondisplaced large chip fracture of the greater trochanter of the rig ht femur.
[2019-11-07 06:45] LABS: Albumin 3.9 g/dL (3.5-5.0); Potassium 4.4 mmol/L (3.5-5.1); Total Bilirubin 0.6 mg/dL (0.2-1.3); Total Protein 7.2 g/dL (6.3-8.2)
[2019-11-07] MEDS ORDERED: IBUPROFEN 400 MG TAB PO PRN (07:02)
[2019-11-07] MEDS ORDERED: NALOXONE 0.4 MG/ML 1 ML VIAL IV PRN (07:02)
[2019-11-07] MEDS ORDERED: ACETAMINOPHEN TAB 325 MG TAB PO PRN (07:02)
[2019-11-07] MEDS: SODIUM CHLORIDE 0.9% 1,000 ML IV SCH ×2 (07:59→13:39)
[2019-11-07 08:37] LABS: Platelet Count 45 k/uL (150-450); Poikilocytosis (M) Present
[2019-11-07 10:49] LABS: Appearance,Urine Clear (Clear); Bilirubin,Urine Negative (Negative); Blood,Urine Negative (Negative); Color,Urine Yellow; Glucose,Urine (UA) Negative (Negative); Hyaline Casts,Urine 10 /lpf (0-2); Ketones,Urine Negative (Negative); Leukocyte Esterase,Urine Negative (Negative); Mucus,Urine Few /hpf; Nitrite,Urine Negative (Negative); PH, Urine 5.5 (5.0-8.0); Protein,Urine 1+ (Negative); RBC,Urine <1 /hpf (0-5); Specific Gravity,Urine 1.019 (1.001-1.035); Squamous Epithelial Cell,Urine <1 /hpf (0-4); Urobilinogen,Urine <2.0 mg/dL (<2.0); WBC,Urine 1 /hpf (0-5)
--- NOTE | 2019-11-07 11:35 | P.CNOR ---
History of Present Illness - [facility] Consult date: 11/07/19 Requesting physician: Marina Valdez Consult reason: joint pain (Right shoulder pain), fracture (Right hip greater trochanter fracture), other (Status post fall) History of present illness: Patient is a very pleasant 69-year-old male who is seen examined at bedside for further evaluation in regards to his right shoulder and right hip. Patient states he had eaten seafood yesterday including clams. Upon returning home from dinner he became significantly sick. He became nauseated and vomited on the floor. He states he slipped and fell on the vomit landing on his right shoulder and right hip. Since that time it had right shoulder pain and right hip pain. He had difficulty ambulation. He was brought to the emergency department for further evaluation. Imaging of the right shoulder and right hip were taken at that time. There were no significant findings in regards to his right shoulder. He was found to have a right greater trochanter nondisplaced chip fracture. Patient has not been ambulatory since that time. He states his right shoulder pain and right hip pain and has had some improvement. He is able to perform better range of motion of the right shoulder. He is not experiencing any significant bruising, erythema, or pain with palpation over the right shoulder. He states his right shoulder does feel sore. He does have significant pain with palpation over his right greater trochanter. With assistance at the bedside, he has significant difficulty with mobility and ambulation. In regards to the seafood, he states he did have a similar reaction last year while also eating seafood facility thought his reaction was due specifically to the food that day and not specifically seafood. He states at this time he will avoid eating all seafood as he appears to have a reaction to it. Patient has a medical history which includes coronary artery disease, hyperlipidemia, hypertension, and syncope. Patient's medical history also includes myelodysplastic syndrome with stem cell replacement and he states he follows for further treatment and ev aluation through the [facility]. Past Medical History Past Medical History: Coronary Artery Disease (CAD), Chest Pain / Angina, GI Bleed, Hyperlipidemia, Hypertension, Syncope Additional Past Medical History / Comment(s): MDS History of Any Multi-Drug Resistant Organisms: None Reported Past Surgical History: Heart Catheterization With Stent, Hernia Repair, Orthop edic Surgery Additional Past Surgical History / Comment(s): CARDIAC STENTS X3, SHENA INGUINAL HERNIA REPAIRS, LT HAND SX, LT FEMUR BROKEN X2 STEVEN IN PLACE Past Anesthesia/Blood Transfusion Reactions: No Reported Reaction Date of Last Stent Placement:: UNK Past Psychological History: No Psychological Hx Reported Additional Psychological History / Comment(s): PT LIVES IN OWN HOME WITH HIS . IS INDEPENDANT OWNS HIS OWN PLUMBING BUISNESS. NO OUTSIDE SERVICES. Smoking Status: Never smoker Past Alcohol Use History: None Reported, Occasional Past Drug Use History: None Reported - Past Family History Mother Family Medical History: Congestive Heart Failure (CHF) Father Family Medical History: Cancer Medications and Allergies Home Medications Medication Instructions Recorded Confirmed Type Acyclovir [Zovirax] 800 mg PO BID@1000,0 10/21/19 11/07/19 History Mag Plus Protein 2 tab PO TID@0800,1400,2200 10/21/19 11/07/19 History Pilocarpine [Salagen] 5 mg PO TID@0800,1400,2200 10/21/19 11/07/19 History Sirolimus 2 mg PO DAILY@0800 10/21/19 11/07/19 History Sulfamethox-Tmp 400-80Mg [Bactrim 1 tab PO DAILY@0800 10/21/19 11/07/19 History SS 400-80 mg] LORazepam [Ativan] 0.5 mg PO Q6H PRN 11/07/19 11/07/19 History Loperamide [Imodium] 2 mg PO Q4H PRN 11/07/19 11/07/19 History Megestrol [Megace] 800 mg PO DAILY@0811/07/19 11/07/19 History Metoprolol Tartrate [Lopressor] 25 mg PO TID 11/07/19 11/07/19 History Ondansetron HCl [Zofran] 8 mg PO Q8H PRN 11/07/19 11/07/19 History Zolpidem [Ambien] 5 mg PO HS 11/07/19 11/07/19 History cycloSPORINE 0.05% OPHTH SOLN 1 drop BOTH EYES Q12H 11/07/19 11/07/19 History [Restasis] traMADol HCL 50 mg PO Q8H PRN 11/07/19 11/07/19 History Allergies Allergy/AdvReac Type Severity Reaction Status Date / Time No Known Allergies Allergy Verified 11/07/19 08:18 Physical Examination Physical Exam: Patient is awake, alert, and oriented 3 Vital signs stable Good chest excursion with deep inspiration and expiration No signs or symptoms of DVT; no calf pain Patient is able to perform some gentle active range of motion of the right shoulder He does have some pain throughout range of motion at the outer limits of his range of motion No specific pain with palpation over the entire right shoulder Inspection of the right shoulder shows no erythema, bruising, laceration, or obvious sign of infection Active range of motion of the right elbow, right wrist, and fingers of the right hand without any significant difficulty Neurovascular intact right upper extremity No increased groin pain with internal and external rotation of the right hip Internal and external rotation of the right hip does cause some pain at the right greater trochanter Significant pain with palpation over the right greater trochanter Patient is able to perform knee extension on the right without difficulty Evidence of a small bruise with mild swelling over the right anterior lower extremity Neurovascular intact right lower extremity Results Pertinent studies: X-rays the right shoulder taken on 11/07/2019: Negative right shoulder exam; no evidence of fracture dislocation within the right shoulder; glenohumeral joint is intact; no evidence of pathologic calcifications X-rays the right hip taken on 11/07/2019: Lucent line over the right greater trochanter suggesting a nondisplaced chip fracture; no evidence of his location within the right hip; acetabulum appears intact; no obvious sign of inferior rami fracture on the right - Labs Labs: Abnormal Lab Results - Last 24 Hours (Table) 11/07/19 11/07/19 11/07/19 Range/Units 05:23 05:23 09:45 WBC 15.1 H (3.8-10.6) k/uL RDW 15.9 H (11.5-15.5) % Plt Count 45 L D (150-450) k/uL Neutrophils # 10.6 H (1.3-7.7) k/uL Sodium 134 L (137-145) mmol/L Carbon Dioxide 19 L (22-30) mmol/L Creatinine 1.39 H (0.66-1.25) mg/dL Glucose 183 H (74-99) mg/dL Alkaline Phosphatase 173 H (38-126) U/L Urine Protein 1+ H (Negative) Hyaline Casts 10 H (0-2) /lpf Urine Mucus Few H (None) /hpf H & H 11/07/19 Range/Units 05:23 Hgb 13.9 (13.0-17.5) gm/dL Hct 41.7 (39.0-53.0) % Result Diagrams: 11/07/19 05:23 11/07/19 05:23 Assessment and Plan Assessment: Assessment: Right hip pain Right nondisplaced greater trochanter fracture Status post fall Right shoulder pain Reaction to seafood resulting in nausea and vomiting History of myelodysplastic syndrome with stem cell treatment History of coronary artery disease History of hyperlipidemia History of hypertension History of syncope (1) Right shoulder pain Current Visit: Yes Status: Acute Code(s): M25.511 - PAIN IN RIGHT SHOULDER SNOMED Code(s): 46891060 (2) Hip pain, right Current Visit: Yes Status: Acute Code(s): M25.551 - PAIN IN RIGHT HIP SNOMED Code(s): 04409130 (3) Status post fall Current Visit: Yes Status: Acute Code(s): Z91.81 - HISTORY OF FALLING SNOMED Code(s): 851019634 (4) Fracture of greater trochanter of right femur Current Visit: Yes Status: Acute Code(s): S72.111A - DISP FX OF GREATER TROCHANTER OF RIGHT FEMUR, INIT SNOMED Code(s): 097444235 (5) Nausea and vomiting Current Visit: Yes Status: Acute Code(s): R11.2 - NAUSEA WITH VOMITING, UNSPECIFIED SNOMED Code(s): 74782445 (6) History of coronary artery disease Current Visit: Yes Status: Acute Code(s): Z86.79 - PERSONAL HISTORY OF OTHER DISEASES OF THE CIRCULATORY SYSTEM SNOMED Code(s): 408578305 (7) History of hyperlipidemia Current Visit: Yes Status: Acute Code(s): Z86.39 - PERSONAL HISTORY OF ENDO, NUTRITIONAL AND METABOLIC DISEASE SNOMED Code(s): 615148110 (8) History of hypertension Current Visit: Yes Status: Acute Code(s): Z86.79 - PERSONAL HISTORY OF OTHER DISEASES OF THE CIRCULATORY SYSTEM SNOMED Code(s): 083691789 (9) History of syncope Current Visit: Yes Status: Acute Code(s): Z87.898 - PERSONAL HISTORY OF OTHER SPECIFIED CONDITIONS SNOMED Code(s): 952727217938248 (10) Myelodysplastic syndrome Current Visit: Yes Status: Acute Code(s): D46.9 - MYELODYSPLASTIC SYNDROME, UNSPECIFIED SNOMED Code(s): 227142290 Plan: Plan: 1. Patient has been discussed in detail with Dr. Steele. After reviewing of imaging, physical examination the patient, testing the patient's ability to ambulate, and further discussion with Dr. Steele, we'll plan to obtain a CT of the right hip for further evaluation. Patient does have evidence of a right nondisplaced greater trochanter fracture. He does have significant difficulty with ambulation on the right lower extremity and standing on the right lower extremity. We will plan to obtain a CT of the right hip to rule out other fractures not evident on x-ray imaging. At this time we will plan for the patient to remain in bed and nonambulatory until after the results of the CT imaging are performed. If the patient does not have evidence of further fracture, patient will be allowed to weight-bear on the right lower extremity to tolerance. A prescription has been written for a walker to hot top liner helper in ambulation. This prescription is written, signed and provided to case management. If the patient is found to have a further fracture of his right hip, we will discuss further treatment options based on that hip fracture. He would be able to use a walker in the outpatient setting and could still benefit from a prescription for a walker at the time of discharge. At this time, we are not currently planning for further imaging in regards to his right shoulder. His right shoulder pain has improved along with his range of motion right shoulder since his admittance. At this time we'll plan follow-up evaluation following the completion to rotation of the right hip CT imaging. 2. Patient will continue be seen examined by medicine Time with Patient: Greater than 30 (Including obtaining history, physical examination, reviewing of imaging, and dictation.)
--- NOTE | 2019-11-07 11:59 | CT ---
EXAMINATION TYPE: CT hip RT wo con DATE OF EXAM: 11/07/2019 COMPARISON: None. HISTORY: Rt greater trochanter fx, S/P fall CT DLP: 321.7 mGycm Automated exposure control for dose reduction was used. FINDINGS: There is a minimally displaced avulsion fracture of the superior tip of the greater trochan ter of the right femur no other definite fracture is seen. IMPRESSION: MINIMALLY DISPLACED FRACTURE OF THE TIP OF THE GREATER TROCHANTER OF THE RIGHT HIP.
[2019-11-07] MEDS ORDERED: LORazepam 0.5 MG TAB PO PRN (12:25)
[2019-11-07] MEDS ORDERED: LOPERAMIDE 2 MG CAP PO PRN (12:25)
[2019-11-07] MEDS ORDERED: ONDANSETRON 4 MG TAB PO PRN (12:25)
[2019-11-07] MEDS ORDERED: TEMAZEPAM 15 MG CAP PO PRN (13:38)
[2019-11-07] MEDS ORDERED: ALPRAZolam 0.25 MG TAB PO PRN (13:38)
[2019-11-07] MEDS ORDERED: SODIUM CHLORIDE 0.9% 1,000 ML IV SCH (13:45)
[2019-11-07] MEDS: cycloSPORINE 0.05% OPHTH 0.4 ML DROPERETTE BOTH EYES SCH ×2 (14:27→22:14)
[2019-11-07] MEDS: METOPROLOL TARTRATE 25 MG TAB PO SCH ×2 (14:28→21:48)
[2019-11-07] MEDS: [UNRECOGNIZED DRUG - OTHER] PO SCH ×2 (14:28→22:13)
[2019-11-07] MEDS: PILOCARPINE 5 MG TAB PO SCH ×2 (14:28→21:48)
--- NOTE | 2019-11-07 15:06 | HP ---
HISTORY AND PHYSICAL DATE OF SERVICE: 11/07/2019 CHIEF COMPLAINT: Fall and nausea and vomiting. HISTORY OF PRESENT ILLNESS: This 69-year-old gentleman with a past medical history of multiple medical problems including CAD, history of GI bleed, hypertension, hyperlipidemia, history of MDS, history of stem cell transplant in [facility] being followed by Dr. Ruano in the outpatient setting apparently had dinner at [facility]. Subsequently, a few hours later, the patient vomited and patient had some diarrhea. Patient slipped on his vomitus and fell down, hitting the right hip. The patient is complaining of right hip pain at this time. Patient also had x-rays and hip CAT scan. Orthopedic Surgery is evaluating the patient. CAT scan showed minimally displaced fracture of the tip of the greater trochanter of the right hip. There is no history of any fever, rigors. No history of headache, loss of consciousness, or seizures. Interestingly the patient also had similar symptoms about a few months ago at [facility] when the patient ate clam chowder soup. Currently, the patient had clam shower and shrimp and the patient's also had the same thing, but was not symptomatic at this time. The patient did not have any allergy prior to that. The patient had a stem cell transplant from his son. PAST MEDICAL HISTORY: History of CAD, history of GI bleed, hypertension, hyperlipidemia, syncope, history MDS, history of CAD stent. MEDICATIONS: Home medications are: 1. Ultram 50 mg q.8 p.r.n. 2. Restasis 1 drop both eyes b.i.d. 3. Ambien 5 mg at bedtime. 4. Bactrim DS 1 p.o. daily. 5. Sirolimus 2 mg daily. 6. Salagen 5 mg p.o. t.i.d. 7. Zofran 8 mg q.8 p.r.n. 8. Lopressor 25 mg p.o. t.i.d. 9. Megace 800 mg p.o. daily. 10.Mag Plus Protein 2 tablets p.o. t.i.d. 11.Imodium 2 mg p.o. q.4 p.r.n. 12.Ativan 0.5 mg q.6 p.r.n. 13.Zovirax 800 mg p.o. b.i.d. ALLERGIES: None. FAMILY HISTORY: History of CHF in the family. SOCIAL HISTORY: No history of smoking. No history of alcohol intake. REVIEW OF SYSTEMS: ENT: No diminished hearing or diminished vision. CARDIOVASCULAR SYSTEM: No angina. RESPIRATORY SYSTEM: As mentioned earlier. GI: As mentioned earlier. : No dysuria. NERVOUS SYSTEM: As mentioned earlier. ALLERGIES/IMMUNOLOGY: No asthma. MUSCULOSKELETAL: As mentioned earlier. HEMATOLOGY/ONCOLOGY: As mentioned earlier. ENDOCRINE: No history of diabetes or hypothyroidism. CONSTITUTIONAL: As mentioned earlier. DERMATOLOGY: Negative. RHEUMATOLOGY: Negative. PSYCHIATRY: As mentioned earlier. PHYSICAL EXAMINATION: The patient is alert and oriented x3. Pulse 91, blood pressure is 107/66, respirations 16, temperature 98.4, T-max 100.2, pulse ox 94% on room air. HEENT: Conjunctivae normal. Oral mucosa moist. NECK: No jugular venous distention. No carotid bruit. No lymph node enlargement. CARDIOVASCULAR: S1, S2 muffled. RESPIRATORY: Breath sounds diminished at the bases. No rhonchi, no crackles. ABDOMEN: Soft, nontender. No mass palpable. LEGS: No edema, no swelling. NERVOUS SYSTEM: Higher function as mentioned earlier. Moves all 4 limbs. No focal motor sensory deficits. LYMPHATICS: No lymphadenopathy of the neck, axillae or groin. SKIN: No ulcer, rash or bleeding. JOINTS: No active deforming arthropathy. Movements of the right hip is slightly painful, some tenderness noted. Otherwise, joints no other active arthropathy. LABS: Labs are at this time shows WBC 15.1, hemoglobin 13.9, sodium 134, creatinine 1.39. ASSESSMENT: 1. Nausea, vomiting, diarrhea, possibly a food allergy with dehydration, present on admission. 2. Mild acute kidney failure, present on admission. 3. Hyponatremia. 4. Fall and right greater trochanter minimally displaced fracture with pain and gait dysfunction. 5. Increased WBC. 6. History of coronary artery disease, stent. 7. History of gastrointestinal bleed. 8. Hypertension. 9. Hyperlipidemia. 10.History of syncope. 11.History of MDS and stem cell transplant. 12.History of hernia repair. 13.History of inguinal hernia repair. 14.FULL CODE. RECOMMENDATIONS AND DISCUSSION: This 69-year-old gentleman presented with multiple complex medical issues, we will monitor the patient closely. Continue the current medications. Continue symptomatic treatment. Will initiate home medications and I would also recommend repeat labs. Continue with IV hydration, pain medications. PT, OT evaluation, orthopedic evaluation. Otherwise, the prognosis guarded because of multiple complex medical issues. Further recommendations to follow and discussed with the patient's family at length. A copy of this forwarded to Dr. Ruano who is the primary physician. Will give the symptomatic treatment for the pain also. MMODL / IJN: [id number] /
[2019-11-07] MEDS: HYDROcodone/APAP 5-325MG 1 EACH TAB PO PRN ×2 (16:04→21:51)
[2019-11-07] MEDS: traMADol 50 MG TAB PO PRN (17:24)
[2019-11-07] MEDS ORDERED: ZOLPIDEM 5 MG TAB PO SCH (21:00)
[2019-11-07] MEDS: ACYCLOVIR 800 MG TAB PO SCH (22:14)
[2019-11-08] MEDS: traMADol 50 MG TAB PO PRN ×2 (03:17→10:49)
[2019-11-08] MEDS ORDERED: SULFAMETHOX-TMP 400-80MG 1 EACH TAB PO SCH (08:00)
[2019-11-08] MEDS ORDERED: SIROLIMUS 2 MG PO SCH (08:00)
[2019-11-08] MEDS ORDERED: MEGESTROL 400 MG/10 ML CUP PO SCH (08:00)
[2019-11-08 08:04] LABS: African American GFR (CKD) >90 (>60 ml/min/1.73 sqM); Anion Gap 8 mmol/L; Basophils # (A) 0.1 k/uL (0-0.2); Basophils % (A) 2 %; Blood Urea Nitrogen 15 mg/dL (9-20); Calcium 8.2 mg/dL (8.4-10.2); Carbon Dioxide 19 mmol/L (22-30); Chloride 108 mmol/L (98-107); Eosinophils # (A) 0.3 k/uL (0-0.7); Eosinophils % (A) 4 %; Glucose 96 mg/dL (74-99); HCT 35.5 % (39.0-53.0); HGB 11.3 gm/dL (13.0-17.5); Lymphocytes # (A) 4.1 k/uL (1.0-4.8); Lymphocytes % (A) 49 %; MCH 30.9 pg (25.0-35.0); MCHC 31.8 g/dL (31.0-37.0); MCV 97.1 fL (80.0-100.0); Mean Platelet Volume 9.1; Monocytes # (A) 0.4 k/uL (0-1.0); Monocytes % (A) 4 %; Neutrophils # (A) 3.3 k/uL (1.3-7.7); Neutrophils % (A) 40 %; Non-African American GFR(CKD) 85 (>60 ml/min/1.73 sqM); RBC 3.66 m/uL (4.30-5.90); RDW 15.7 % (11.5-15.5); Sodium 135 mmol/L (137-145); WBC 8.4 k/uL (3.8-10.6)
[2019-11-08 08:09] LABS: Platelet Count 38 k/uL (150-450)
[2019-11-08] MEDS: PILOCARPINE 5 MG TAB PO SCH (08:28)
[2019-11-08] MEDS: METOPROLOL TARTRATE 25 MG TAB PO SCH (08:30)
[2019-11-08] MEDS: cycloSPORINE 0.05% OPHTH 0.4 ML DROPERETTE BOTH EYES SCH (08:30)
[2019-11-08] MEDS: ACYCLOVIR 800 MG TAB PO SCH (08:30)
[2019-11-08] MEDS: [UNRECOGNIZED DRUG - OTHER] PO SCH (08:35)
[2019-11-08 08:36] VITALS: BP 121/69; PULSE 84; TEMP 98.3
[2019-11-08 09:54] VITALS: RESP 15
--- NOTE | 2019-11-08 12:07 | P.PN ---
Progress Note - Text Progress Note Date: 11/08/19 Orthopedics: History of present illness: Patient is a very pleasant 69-year-old male who is seen examined at bedside for follow-up evaluation in regards to his right shoulder and right hip. Patient states he had eaten seafood Saturday including clams. Upon returning home from dinner he became significantly sick. He became nauseated and vomited on the floor. He states he slipped and fell on the vomit landing on his right shoulder and right hip. Since that time it had right shoulder pain and right hip pain. He had difficulty ambulation. He was brought to the emergency department for further evaluation. Imaging of the right shoulder and right hip were taken at that time. There were no significant findings in regards to his right shoulder. He was found to have a right greater trochanter nondisplaced chip fracture. After being seen examined yesterday, a CT of the right hip was performed to rule out further fracture. No additional fractures were found on CT imaging. CT imaging did redemonstrate the previously seen right greater trochanter chip fracture. Since being seen examined yesterday, patient has had improved active range of motion of the right shoulder without increased difficulty. He has been able to increase his mobility and ambulation with assistive walker without difficulty. He feels both his right shoulder and right hip pain is better controlled. Patient feels he is ready for discharge home today. Nursing states medicine is in the process of completing the patient's discharge today. Patient has a medical history which includes coronary artery disease, hyperlipidemia, hypertension, and syncope. Patient's medical history also includes myelodysplastic syndrome with stem cell replacement and he states he follows for further treatment and evaluation through the [facility]. Physical Exam: Patient is awake, alert, and oriented 3 Vital signs stable Good chest excursion with deep inspiration and expiration No signs or symptoms of DVT; no calf pain Patient is able to perform some near full active range of motion of the right shoulder without difficulty No significant pain throughout range of motion of the right shoulder during today's physical examination No specific pain with palpation over the entire right shoulder Inspection of the right shoulder shows no erythema, bruising, laceration, or obvious sign of infection Active range of motion of the right elbow, right wrist, and fingers of the right hand without any significant difficulty Neurovascular intact right upper extremity No increased groin pain with internal and external rotation of the right hip Internal and external rotation of the right hip does cause some pain at the right greater trochanter Mild pain with palpation over the right greater trochanter Evidence of a small bruise over the right greater trochanter Patient is able to perform knee extension on the right without difficulty Evidence of a small bruise with mild swelling over the right anterior lower extremity Neurovascular intact right lower extremity Pertinent studies: CT of the right hip taken on 11/07/2019: Minimally displaced fracture at the tip of the right greater trochanter of the right hip with no other definite fractures visible X-rays the right shoulder taken on 11/07/2019: Negative right shoulder exam; no evidence of fracture dislocation within the right shoulder; glenohumeral joint is intact; no evidence of pathologic calcifications X-rays the right hip taken on 11/07/2019: Lucent line over the right greater trochanter suggesting a nondisplaced chip fracture; no evidence of his location within the right hip; acetabulum appears intact; no obvious sign of inferior rami fracture on the right Assessment: Right hip pain Right nondisplaced greater trochanter fracture Status post fall Right shoulder pain Reaction to seafood resulting in nausea and vomiting History of myelodysplastic syndrome with stem cell treatment History of coronary artery disease History of hyperlipidemia History of hypertension History of syncope Plan: 1. Patient has been discussed in detail with Dr. Steele. After reviewing of imaging, physical examination the patient, testing the patient's ability to ambulate, and further discussion with Dr. Steele, we obtained a CT of the right hip performed yesterday. CT imaging showed evidence of the right non- displaced greater trochanter fracture without evidence of further fracture. Following the diagnosis of no further fractures of the right hip, patient has been able to increase his mobility and ambulation with the assistance of a walker. His pain is very much better controlled today at his right hip. He also feels his right shoulder pain has significantly improved. We are not currently planning for further imaging in regards to his right shoulder. At this time he feels he is ready for discharge home. We discussed patient should continue using a walker to aid in ambulation in regards to his right hip. We also discussed he should avoid excessive ambulation activities of the right hip. He may use his right shoulder to his tolerance. At this time, patient is cleared for discharge from an orthopedic standpoint. We will plan have him follow-up in the outpatient setting with Dr. Steele at [facility] in approximately 1-2 weeks for further evaluation. 2. Patient will continue be seen examined by medicine who is currently planning for the patient is discharged home today
--- NOTE | 2019-11-09 08:00 | DS ---
DISCHARGE SUMMARY DATE OF SERVICE: 11/08/2019 FINAL DIAGNOSES: 1. Nausea, vomiting, diarrhea, possibly food allergy and dehydration, present on admission, improved. 2. Mild acute kidney failure with acute prerenal acute tubular necrosis, present on admission. 3. Hyponatremia. 4. Fall and right greater trochanteric minimally displaced fracture with pain and gait dysfunction, improving. 5. Increased WBC. 6. History of coronary artery disease, stent. 7. History of gastrointestinal bleed. 8. Hypertension. 9. Hyperlipidemia. 10.History of syncope. 11.History of MDS and stem cell transplant. 12.History of hernia repair. 13.History of inguinal hernia repair. 14.FULL CODE. DISCHARGE DISPOSITION: The patient will be discharged in stable condition with guarded prognosis. HISTORY OF PRESENT ILLNESS: This 69-year-old gentleman with a past medical history of multiple medical problems admitted with fall, nausea, vomiting and diarrhea. The patient was treated symptomatically. Patient possibly had a food allergy. The patient also had a greater trochanter fracture and Orthopedics saw the patient, recommended continued conservative line of management. On exam, vitals are stable. CARDIOVASCULAR: S1, S2 muffled. ABDOMEN: Soft. NERVOUS SYSTEM: No focal deficits. Patient is keen on going home. The platelets are 38. I recommend to continue closely in the outpatient setting and avoid NSAIDS. DISCHARGE ADVICE: 1. Diet is cardiac. 2. Activity limited until followup. 3. Follow up with Dr. Ruano 2 to 3 days. 4. Follow up with Dr. Steele of Orthopedic Surgery as recommended. Medications are as follows: 1. Ambien 5 mg p.o. at bedtime. 2. Ativan p.r.n. 3. Bactrim DS one p.o. daily as before. 4. Imodium p.r.n. 5. Lopressor 25 mg p.o. t.i.d. 6. Mag plus. 7. Megace 800 mg p.o. daily. 8. Cyclosporine 1 drop both eyes. 9. Salagen 5 mg p.o. t.i.d. 10.Sirolimus 2 p.o. daily. 11.Ultram 50 mg p.o. q.8. 12.Zofran p.r.n. 13.Zovirax 800 mg p.o. b.i.d. 14.Loranger 5 mg q.6 p.r.n. Once again, the patient will be discharged in a stable condition with guarded prognosis. WILMAR / BUBBAN: [id number] / MTDD
== END 2019-11-08 12:50 | disposition home or self-care (01) | DRG 922 ==
LOC: EC 05:02 → 4SSUR 07:03
PROVIDERS: ADMIT Hospitalist; ATTEND Hospitalist
DX: T78.1XXA Other adverse food reactions, not elsewhere classified, initial encounter (principal); N17.0 Acute kidney failure with tubular necrosis; S72.114A Nondisplaced fracture of greater trochanter of right femur, initial encounter for closed fracture; E87.1 Hypo-osmolality and hyponatremia; Z94.84 Stem cells transplant status; R11.2 Nausea with vomiting, unspecified; R19.7 Diarrhea, unspecified; D46.9 Myelodysplastic syndrome, unspecified; E78.5 Hyperlipidemia, unspecified; E86.0 Dehydration; I10 Essential (primary) hypertension; I25.10 Atherosclerotic heart disease of native coronary artery without angina pectoris; M25.511 Pain in right shoulder; R50.9 Fever, unspecified; Z79.899 Other long term (current) drug therapy; Z95.5 Presence of coronary angioplasty implant and graft; Z82.49 Family history of ischemic heart disease and other diseases of the circulatory system; Z80.9 Family history of malignant neoplasm, unspecified; W01.0XXA Fall on same level from slipping, tripping and stumbling without subsequent striking against object, initial encounter
CPT/HCPCS: 36415; 73502; 80048; 80053; 81001; 83690; 85025; 87040; 87502; 96361; 96374; 99285

== ENCOUNTER 2023-03-26 19:34 | Emergency (ER) | payer MEDICARE ==
[2023-03-26 20:07] VITALS: TEMP 98.5
--- NOTE | 2023-03-26 20:35 | CT ---
EXAMINATION TYPE: CT brain wo con DATE OF EXAM: 03/26/2023 COMPARISON: none HISTORY: fall, weakness and dizziness CT DLP: 1117.[address] of the brain was performed. The ventricles, basal cisterns and sulci overlying the cerebral convexities demonstrate mild enlargem ent. There is no evidence for intracranial hemorrhage or sulcal effacement. There is decreased attenuation about the periventricular white matter and deep white matter of both c erebral hemispheres, compatible with chronic small vessel ischemia. Differential diagnosis does inclu de demyelination. No mass effects are seen.No midline shift. Osseous calvarium is intact. If symptoms persist consider MRI. IMPRESSION: 1. Age related atrophic and chronic small vessel ischemic change without acute intracranial process s een at this time.
[2023-03-26] MEDS ORDERED: SODIUM CHLORIDE 0.9% 1,000 ML IV STA (21:07)
[2023-03-26 21:17] VITALS: RESP 18
[2023-03-26 21:26] LABS: Basophils # (A) 0.1 k/uL (0-0.2); Basophils % (A) 1 %; Eosinophils # (A) 0.1 k/uL (0-0.7); Eosinophils % (A) 1 %; HCT 42.4 % (39.0-53.0); Lymphocytes # (A) 4.2 k/uL (1.0-4.8); Lymphocytes % (A) 33 %; MCH 32.9 pg (25.0-35.0); MCV 99.6 fL (80.0-100.0); Mean Platelet Volume 8.7; Monocytes # (A) 0.9 k/uL (0-1.0); Monocytes % (A) 7 %; Neutrophils # (A) 7.2 k/uL (1.3-7.7); Neutrophils % (A) 57 %; Platelet Count 216 k/uL (150-450); RBC 4.26 m/uL (4.30-5.90); RDW 13.9 % (11.5-15.5); WBC 12.6 k/uL (3.8-10.6)
[2023-03-26 21:38] LABS: Partial Thromboplastin Time 25.6 sec (22.0-30.0)
[2023-03-26 21:40] LABS: ALT 24 U/L (4-49); AST 32 U/L (17-59); African American GFR (CKD) 46 (>60 ml/min/1.73 sqM); Albumin 4.1 g/dL (3.5-5.0); Alkaline Phosphatase 55 U/L (38-126); Anion Gap 11 mmol/L; Blood Urea Nitrogen 22 mg/dL (9-20); Calcium 9.1 mg/dL (8.4-10.2); Carbon Dioxide 23 mmol/L (22-30); Chloride 102 mmol/L (98-107); Glucose 136 mg/dL (74-99); Magnesium 2.1 mg/dL (1.6-2.3); Non-African American GFR(CKD) 39 (>60 ml/min/1.73 sqM); Phosphorus 3.6 mg/dL (2.5-4.5); Potassium 4.6 mmol/L (3.5-5.1); Sodium 136 mmol/L (137-145); Total Bilirubin 0.5 mg/dL (0.2-1.3); Total Protein 7.6 g/dL (6.3-8.2)
--- NOTE | 2023-03-26 21:46 | XR ---
EXAMINATION TYPE: XR chest 1V portable DATE OF EXAM: 03/26/2023 HISTORY: Shortness of breath. COMPARISON: 10/22/2019 TECHNIQUE: Single view of the chest is submitted. FINDINGS: Demonstrated are scattered senescent parenchymal change. Nodular infiltrate left lower lobe as well as right upper lobe could reflect pneumonia however underl bhupinder pulmonary nodules are not excluded. The remainder of the lungs are clear. The heart is stable. Hilar and mediastinal structures are within normal limits. Degenerative changes are seen of the dorsal spine. IMPRESSION: 1. Nodular infiltrate left lower lobe as well as right upper lobe could reflect pneumonia however un derlying pulmonary nodules are not excluded.
[2023-03-26] MEDS ORDERED: PROCHLORPERAZINE INJ 10 MG/2 ML VIAL IVP STA (21:50)
[2023-03-26] MEDS ORDERED: KETOROLAC 15 MG/ML 1 ML VIAL IVP STA (21:50)
[2023-03-26] MEDS ORDERED: MORPHINE SULFATE 4 MG/ML SYRINGE IVP STA (21:50)
--- NOTE | 2023-03-26 21:56 | ED ---
Weakness HPI - General Chief complaint: Dizziness Stated complaint: Dizzy/fall Time Seen by Provider: 03/26/23 21:07 Source: patient, RN notes reviewed, old records reviewed Mode of arrival: wheelchair Limitations: no limitations - History of Present Illness Initial comments: This is a 73-year-old male to the emergency department today. Patient presents today for evaluation regards to headache dizziness weakness lightheadedness room spinning. Patient of fall shower prior to arrival was unable to get up. Per family history is a patient having increasing weakness and increasing sleepiness and decreased activity level for last few days. Patient is no change in medications no fevers no nausea vomiting or diarrhea. Patient himself aside from headaches denies any complaints of chest pain shortness breath or abdominal pain MD Complaint: generalized weakness, focal weakness, lack of energy, difficulty walking -: days(s) Location: generalized Severity: moderate Severity scale (1-10): 6 Quality: aching (Headache) Consistency: constant Improves with: none Worsens with: none Context: history of similar Associated Symptoms: loss of appetite, nausea/vomiting - Related Data Home Medications Medication Instructions Recorded Confirmed Acyclovir [Zovirax] 400 mg PO BID 10/21/19 03/26/23 Mag Plus Protein 2 tab PO BID 10/21/19 03/26/23 Sulfamethox-Tmp 400-80Mg [Bactrim 1 tab PO DAILY 10/21/19 03/26/23 SS 400-80 mg] Metoprolol Tartrate [Lopressor] 50 mg PO DAILY 11/07/19 03/26/23 Atorvastatin [Lipitor] 20 mg PO DAILY 03/26/23 03/26/23 Metoprolol Tartrate [Lopressor] 25 mg PO HS 03/26/23 03/26/23 Previous Rx's Medication Instructions Recorded Amoxic-Pot Clav 875-125Mg 1 tab PO Q12HR #14 tablet 03/26/23 [Augmentin 875-125] Azithromycin [Zithromax] 500 mg PO DAILY #5 tab 03/26/23 Allergies Allergy/AdvReac Type Severity Reaction Status Date / Time No Known Allergies Allergy Verified 03/26/23 21:55 Review of Systems ROS Statement: Those systems with pertinent positive or pertinent negative responses have been documented in the HPI. ROS Other: All systems not noted in ROS Statement are negative. Past Medical History Past Medical History: Coronary Artery Disease (CAD), Chest Pain / Angina, GI Bleed, Hyperlipidemia, Hypertension, Syncope Additional Past Medical History / Comment(s): MDS History of Any Multi-Drug Resistant Organisms: None Reported Past Surgical History: Heart Catheterization With Stent, Hernia Repair, Orthopedic Surgery Additional Past Surgical History / Comment(s): CARDIAC STENTS X3, SHENA INGUINAL HERNIA REPAIRS, LT HAND SX, LT FEMUR BROKEN X2 STEVEN IN PLACE Past Anesthesia/Blood Transfusion Reactions: No Reported Reaction Date of Last Stent Placement:: UNK Past Psychological History: No Psychological Hx Reported Past Alcohol Use History: None Reported, Occasional Past Drug Use History: None Reported - Past Family History Mother Family Medical History: Congestive Heart Failure (CHF) Father Family Medical History: Cancer General Exam Limitations: no limitations General appearance: alert, in no apparent distress Head exam: Present: atraumatic, normocephalic, normal inspection Eye exam: Present: normal appearance, PERRL, EOMI. Absent: scleral icterus, conjunctival injection, periorbital swelling ENT exam: Present: normal exam, mucous membranes moist Neck exam: Present: normal inspection. Absent: tenderness, meningismus, lymphadenopathy Respiratory exam: Present: normal lung sounds bilaterally. Absent: respiratory distress, wheezes, rales, rhonchi, stridor Cardiovascular Exam: Present: regular rate, normal rhythm, normal heart sounds. Absent: systolic murmur, diastolic murmur, rubs, gallop, clicks GI/Abdominal exam: Present: soft, normal bowel sounds. Absent: distended, tenderness, guarding, rebound, rigid Extremities exam: Present: normal inspection, full ROM, normal capillary refill. Absent: tenderness, pedal edema, joint swelling, calf tenderness Back exam: Present: normal inspection Neurological exam: Present: alert, oriented X3, CN II-XII intact Psychiatric exam: Present: normal affect, normal mood Skin exam: Present: warm, dry, intact, normal color. Absent: rash Course Vital Signs 03/26/23 03/26/23 03/27/23 20:03 21:15 01:31 Temperature 98.5 F Pulse Rate 98 87 68 Respiratory 20 18 18 Rate Blood Pressure 113/73 111/65 102/70 O2 Sat by Pulse 94 L 97 Oximetry 03/27/23 01:43 Temperature Pulse Rate Respiratory 18 Rate Blood Pressure 105/70 O2 Sat by Pulse Oximetry - Reevaluation(s) Reevaluation #1: 03/26/23 22:48 Medical records reviewed Reevaluation #2: 03/26/23 22:48 Patient symptoms are improved Reevaluation #3: 03/26/23 22:48 Patient informed results and questions are answered Reevaluation #4: 03/26/23 22:48 Was pt. sent in by a medical professional or institution? @ -no Did you speak to anyone other than the patient for history? @ -no Did you review nursing and triage notes? @ -agree Were old charts reviewed? @ -yes Differential Diagnosis? @ -prior EKG interpreted by me (3pts min.)? @ -yes X-rays interpreted by me (1pt min.)? @ -yes CT interpreted by me (1pt min.)? @ -yes U/S interpreted by me (1pt. min.)? @ -no What testing was considered but not performed? (CT, X-rays, U/S, labs)? Why? @ -no What meds were considered but not given? Why? @ -no Did you discuss the management of the patient with other professionals? @ -no Did you reconcile home meds? @ -no Was smoking cessation discussed for >3mins.? @ -no Was critical care preformed (if so, how long)? @ -no Were there social determinants of health that impacted care today? How? (Homelessness, low income, unemployed, alcoholism, drug addiction, transportation, low edu. Level, literacy, decrease access to med. care, residential, rehab)? @ -no Was there de-escalation of care discussed even if they declined? (Discuss DNR or withdrawal of care, Hospice)? @ -no What co-morbidities impacted this encounter? (DM, HTN, Smoking, COPD, CAD, Cancer, CVA, Hep., AIDS, mental health diagnosis, sleep apnea, morbid obesity)? @ -none Was patient admitted / discharged? @ -73 male to the emergency department for evaluation of weakness, underlying MDS, dehydration with recent fall, no injury noted. Patient feels improved here in the ER and can be discharged home Discharge Undiagnosed new problem with uncertain prognosis? @ -no Drug Therapy requiring intensive monitoring for toxicity (Heparin, Nitro, Insulin, Cardizem)? @ -no Were any procedures done? @ -no Diagnosis/symptom? @ -Weakness, dehydration, fall Acute, or Chronic, or Acute on Chronic? @ -acute Uncomplicated (without systemic symptoms) or Complicated (systemic symptoms)? @ -complicated Side effects of treatment? @ -no Exacerbation, Progression, or Severe Exacerbation] @ -no Poses a threat to life or bodily function? @ -No Reevaluation #5: 03/26/23 22:48 Differential Weakness: Hypoglycemia, shock, sepsis, hyponatremia, anemia, infection, TX, ETOH, adverse medicine reaction, overdose, stroke, this is not meant to be an all-inclusive list. EKG Findings - EKG Comments: EKG Findings:: EKG is sinus 91 OH 141 QRS 90 QTC 390 - EKG Results: EKG: interpreted by [facility] Medical Decision Making - Medical Decision Making 73 male to the emergency department for evaluation of weakness, underlying MDS, dehydration with recent fall, no injury noted. Patient feels improved here in the ER and can be discharged home - Lab Data Result diagrams: 03/26/23 21:15 03/26/23 21:15 Lab Results 03/26/23 03/26/23 03/26/23 Range/Units 21:15 21:15 21:15 WBC 12.6 H (3.8-10.6) k/uL RBC 4.26 L (4.30-5.90) m/uL Hgb 14.0 (13.0-17.5) gm/dL Hct 42.4 (39.0-53.0) % MCV 99.6 (80.0-100.0) fL MCH 32.9 (25.0-35.0) pg MCHC 33.0 (31.0-37.0) g/dL RDW 13.9 (11.5-15.5) % Plt Count 216 (150-450) k/uL MPV 8.7 Neutrophils % 57 % Lymphocytes % 33 % Monocytes % 7 % Eosinophils % 1 % Basophils % 1 % Neutrophils # 7.2 (1.3-7.7) k/uL Lymphocytes # 4.2 (1.0-4.8) k/uL Monocytes # 0.9 (0-1.0) k/uL Eosinophils # 0.1 (0-0.7) k/uL Basophils # 0.1 (0-0.2) k/uL PT 11.0 (9.0-12.0) sec INR 1.0 (<1.2) APTT 25.6 (22.0-30.0) sec Sodium 136 L (137-145) mmol/L Potassium 4.6 (3.5-5.1) mmol/L Chloride 102 (98-107) mmol/L Carbon Dioxide 23 (22-30) mmol/L Anion Gap 11 mmol/L BUN 22 H (9-20) mg/dL Creatinine 1.71 H (0.66-1.25) mg/dL Est GFR (CKD-EPI)AfAm 46 (>60 ml/min/1.73 sqM) Est GFR (CKD-EPI)NonAf 39 (>60 ml/min/1.73 sqM) Glucose 136 H (74-99) mg/dL Calcium 9.1 (8.4-10.2) mg/dL Phosphorus 3.6 (2.5-4.5) mg/dL Magnesium 2.1 (1.6-2.3) mg/dL Total Bilirubin 0.5 (0.2-1.3) mg/dL AST 32 (17-59) U/L ALT 24 (4-49) U/L Alkaline Phosphatase 55 (38-126) U/L Troponin I (0.000-0.034) ng/mL Total Protein 7.6 (6.3-8.2) g/dL Albumin 4.1 (3.5-5.0) g/dL 03/26/23 Range/Units 21:15 WBC (3.8-10.6) k/uL RBC (4.30-5.90) m/uL Hgb (13.0-17.5) gm/dL Hct (39.0-53.0) % MCV (80.0-100.0) fL MCH (25.0-35.0) pg MCHC (31.0-37.0) g/dL RDW (11.5-15.5) % Plt Count (150-450) k/uL MPV Neutrophils % % Lymphocytes % % Monocytes % % Eosinophils % % Basophils % % Neutrophils # (1.3-7.7) k/uL Lymphocytes # (1.0-4.8) k/uL Monocytes # (0-1.0) k/uL Eosinophils # (0-0.7) k/uL Basophils # (0-0.2) k/uL PT (9.0-12.0) sec INR (<1.2) APTT (22.0-30.0) sec Sodium (137-145) mmol/L Potassium (3.5-5.1) mmol/L Chloride (98-107) mmol/L Carbon Dioxide (22-30) mmol/L Anion Gap mmol/L BUN (9-20) mg/dL Creatinine (0.66-1.25) mg/dL Est GFR (CKD-EPI)AfAm (>60 ml/min/1.73 sqM) Est GFR (CKD-EPI)NonAf (>60 ml/min/1.73 sqM) Glucose (74-99) mg/dL Calcium (8.4-10.2) mg/dL Phosphorus (2.5-4.5) mg/dL Magnesium (1.6-2.3) mg/dL Total Bilirubin (0.2-1.3) mg/dL AST (17-59) U/L ALT (4-49) U/L Alkaline Phosphatase (38-126) U/L Troponin I <0.012 (0.000-0.034) ng/mL Total Protein (6.3-8.2) g/dL Albumin (3.5-5.0) g/dL - EKG Data -: EKG Interpreted by Me - Radiology Data Radiology results: report reviewed (CT brain chest and pelvis x-ray negative for genetic injury), image reviewed Disposition Clinical Impression: Myelodysplastic syndrome, Dehydration, Fall, Weakness, Pneumonia Disposition: HOME SELF-CARE Condition: Fair Instructions (If sedation given, give patient instructions): Dehydration (ED), Community Acquired Pneumonia (ED) Prescriptions: Amoxic-Pot Clav 875-125Mg [Augmentin 875-125] 1 tab PO Q12HR #14 tablet Azithromycin [Zithromax] 500 mg PO DAILY #5 tab Is patient prescribed a controlled substance at d/c from ED?: No Referrals: Tunde Ruano DO [Primary Care Provider] - 1-2 days Time of Disposition: 23:45
[2023-03-26] MEDS ORDERED: SODIUM CHLORIDE 0.9% 1,000 ML IV SCH (22:00)
--- NOTE | 2023-03-26 22:32 | XR ---
EXAMINATION TYPE: XR pelvis AP view DATE OF EXAM: 03/26/2023 CLINICAL HISTORY: pain TECHNIQUE: Single view the pelvis is submitted. FINDINGS: No evidence for fracture, dislocation or bony lesion. Joint spaces are well-preserved. S I joints appear symmetric. Postoperative changes left hip. IMPRESSION: 1. No acute fracture or dislocation seen. ICD 10 NO FRACTURE, INITIAL EVALUATION
[2023-03-26] MEDS ORDERED: AZITHROMYCIN 500 MG in SODIUM CHLORIDE 0.9% 250 ML IVPB STA (23:47)
[2023-03-26] MEDS ORDERED: cefTRIAXone IN SWFI 1,000 MG/10 ML SYRINGE IVP STA (23:47)
[2023-03-27 01:33] VITALS: PULSE 68
[2023-03-27 01:44] VITALS: BP 105/70
== END 2023-03-27 02:39 | disposition home or self-care (01) ==
LOC: EC 19:34
DX: D46.9 Myelodysplastic syndrome, unspecified (principal); E86.0 Dehydration; J18.9 Pneumonia, unspecified organism; I10 Essential (primary) hypertension; E78.5 Hyperlipidemia, unspecified; I25.10 Atherosclerotic heart disease of native coronary artery without angina pectoris; Z79.899 Other long term (current) drug therapy; W18.30XA Fall on same level, unspecified, initial encounter
CPT/HCPCS: 36415; 93005; 80053; 83735; 84100; 84484; 85025; 85610; 85730; 72170; 71045; 70450; 99285; 96365; 96375 ×4; 96361 ×3; J2270; J0780; J0456; J0696; J1885

== ENCOUNTER → 2024-02-11 | Outpatient (CLI) | payer MEDICARE ==
[~2024-02-11] MED LIST: REGADENOSON 0.4 MG/5 ML SYRINGE IV PRN
--- NOTE | 2024-02-11 13:56 | CA ---
Lexiscan Nuclear Stress Test Report Name: Aditya Calzada Exam Date: 02/11/2024 10:38 Exam Location: [place] Stress Ht (in): 66 Wt (lb): 160 BSA: 1.82 Ordering Phys: Tunde Ruano DO Referring Phys: Alysia Dillon Technologist: Raine Troy RDCS Age: 73 Gender: M : 1950 Procedure CPT: Indications: I10 HTN ICD-10 Codes: Patient History: Medications: METOPROLOL Meds past 24 hrs: Pretest Chest Pain: STRESS TEST Lexiscan Protocol Exercise Duration (min:sec): 01:[address] Depressions (mm): Angina Score: Panda Score: Resting HR (bpm): 72 Peak HR (bpm): 99 Resting BP (mmHg): 115 / 68 Peak BP (mmHg): 108 / 68 MPHR: 149 Target HR: 127 % MPHR: 66 METS: 1.0 Total Dose: Peak Dose: Atropine: Double Product: 07262 BP Response: Stress Termination: PROTOCOL COMPLETE Stress Symptoms: NO SYMPTOMS Stress Summary: ECG ANALYSIS Resting ECG: Sinus rhythm. Normal conduction. No arrhythmias. Normal repolarization. Stress ECG: No ECG changes from baseline with Lexiscan infusion. CONCLUSIONS No ECG evidence of ischemia with Lexiscan infusion. Nuclear test results to follow. Dr. Isatu Sales MD (Electronically Signed) Final Date: 11 Feb 2024 13:55
--- NOTE | 2024-02-11 15:01 | NM ---
EXAMINATION TYPE: NM stress lexiscan cardiolite DATE OF EXAM: 02/11/2024 COMPARISON: NONE CLINICAL INDICATION: Male, 73 years old with history of I10 HTN; TECHNIQUE: After the intravenous administration of 9.4 mCi Tc 99m Sestamibi - Cardiolite resting SPE CT images acquired 45 minutes post injection. The patient received 0.4mg Lexiscan, 25.8 mCi Tc 99m Sestamibi - Stress images obtained [address] injection FINDINGS: Review of stress and rest SPECT images demonstrates fixed perfusion defect along the mid to basal inf erior wall suggesting diaphragmatic attenuation artifact. No distinct reversibility is seen. Gated a nalysis shows normal wall motion with an estimated left ventricular ejection fraction of 89 %. TID i s calculated at 0.84, within normal limits. IMPRESSION: Prominent diaphragmatic attenuation artifact along the inferior wall. No scintigraphic evidence for r eversible ischemia.
== END | disposition home or self-care (01) ==
LOC: RADNMMAIN 08:17
PROVIDERS: ATTEND Family Medicine
DX: I25.10 Atherosclerotic heart disease of native coronary artery without angina pectoris (principal); R53.83 Other fatigue; E78.2 Mixed hyperlipidemia
CPT/HCPCS: 93017; 78452; A9500; J2785

== ENCOUNTER 2024-11-27 05:47 | Inpatient (IN) | payer MEDICARE ==
--- NOTE | 2024-11-27 06:19 | ED ---
General Adult HPI - General Source: patient, RN notes reviewed Mode of arrival: ambulatory Limitations: no limitations <Yenni Mares - Last Filed: 11/28/24 13:25> <Che Kwong - Last Filed: 11/28/24 14:13> - General Chief complaint: Chest Pain Stated complaint: chest pain Time Seen by Provider: 11/27/24 06:07 - History of Present Illness Initial comments: 74-year-old male presents to the emergency department for evaluation of chest pressure. Based states that this started around 4 AM. He notes that he feels as pressure in his left sided and mid chest radiating down his left arm. He states that has been constant since it started. He notes that he took 1 nitro without relief. He has had prior stents placed. He follows with Dr. KAILEE Richardson. He notes that he is on metoprolol but does not know what other medications he takes. He denies history of hypertension, hyperlipidemia although it is listed in his chart. Denies smoking history. (Yenni Mares) - Related Data Home Medications Medication Instructions Recorded Confirmed Fenofibrate [Lofibra] 160 mg PO DAILY 11/27/24 11/27/24 Temazepam [Restoril] 15 mg PO HS 11/27/24 11/27/24 Previous Rx's Medication Instructions Recorded Aspirin 81 mg PO DAILY tab 11/28/24 Atorvastatin [Lipitor] 80 mg PO HS #90 tab 11/28/24 Clopidogrel [Plavix] 75 mg PO DAILY #90 tab 11/28/24 Losartan [Cozaar] 25 mg PO HS #90 tab 11/28/24 Metoprolol Tartrate [Lopressor] 25 mg PO BID #0 11/28/24 Nitroglycerin Sl Tabs [Nitrostat] 0.4 mg SUBLINGUAL Q5M PRN #25 tab 11/28/24 Allergies Allergy/AdvReac Type Severity Reaction Status Date / Time No Known Allergies Allergy Verified 11/27/24 10:33 Review of Systems ROS Other: All systems not noted in ROS Statement are negative. <Yenni Mares - Last Filed: 11/28/24 13:25> ROS Other: All systems not noted in ROS Statement are negative. <Che Kwong - Last Filed: 11/28/24 14:13> ROS Statement: Those systems with pertinent positive or pertinent negative responses have been documented in the HPI. Past Medical History Past Medical History: Coronary Artery Disease (CAD), Chest Pain / Angina, GI Bleed, Hyperlipidemia, Hypertension, Syncope Additional Past Medical History / Comment(s): MDS History of Any Multi-Drug Resistant Organisms: None Reported Past Surgical History: Heart Catheterization With Stent, Hernia Repair, Orthopedic Surgery Additional Past Surgical History / Comment(s): CARDIAC STENTS X3, SHENA INGUINAL HERNIA REPAIRS, LT HAND SX, LT FEMUR BROKEN X2 STEVEN IN PLACE Past Anesthesia/Blood Transfusion Reactions: No Reported Reaction Date of Last Stent Placement:: UNK Past Psychological History: No Psychological Hx Reported Past Alcohol Use History: None Reported, Occasional Past Drug Use History: None Reported - Past Family History Mother Family Medical History: Congestive Heart Failure (CHF) Father Family Medical History: Cancer <Yenni Mares - Last Filed: 11/28/24 13:25> General Exam Limitations: no limitations General appearance: alert, in no apparent distress Head exam: Present: atraumatic, normocephalic, normal inspection Eye exam: Present: normal appearance, PERRL, EOMI. Absent: scleral icterus, conjunctival injection, periorbital swelling Respiratory exam: Present: wheezes. Absent: respiratory distress, rales, rhonchi, stridor Cardiovascular Exam: Present: regular rate, normal rhythm, normal heart sounds. Absent: systolic murmur, diastolic murmur, rubs, gallop, clicks Extremities exam: Present: normal inspection, full ROM, normal capillary refill. Absent: tenderness, pedal edema, joint swelling, calf tenderness Neurological exam: Present: alert, oriented X3 Psychiatric exam: Present: normal affect, normal mood Skin exam: Present: warm, dry, intact, normal color. Absent: rash <Yenni Mares - Last Filed: 11/28/24 13:25> Course Vital Signs 11/27/24 11/27/24 11/27/24 05:50 07:50 09:14 Temperature 97.5 F L 97.7 F Pulse Rate 56 L 56 L 52 L Respiratory 20 16 16 Rate Blood Pressure 162/83 132/82 130/90 O2 Sat by Pulse 97 99 99 Oximetry Medical Decision Making - Lab Data Result diagrams: 11/27/24 06:05 11/28/24 05:48 <Yenni Mares Filed: 11/28/24 13:25> - Lab Data Result diagrams: 11/27/24 06:05 11/28/24 05:48 <Che Kwong Juan - Last Filed: 11/28/24 14:13> - Medical Decision Making Was pt. sent in by a medical professional or institution (, [facility], SPAR MACHINE OPERATOR, urgent care, hospital, or jail...) When possible be specific @ -No Did you speak to anyone other than the patient for history (EMS, parent, family, police, friend...)? What history was obtained from this source @ -Family provided to the history of this patient] Did you review nursing and triage notes (agree or disagree)? Why? @ -I reviewed and agree with nursing and triage notes Were old charts reviewed (outside hosp., previous admission, EMS record, old EKG, old radiological studies, urgent care reports/EKG's, jail records)? Report findings @ -No old charts were reviewed Differential Diagnosis (chest pain, altered mental status, abdominal pain women, abdominal pain men, vaginal bleeding, weakness, fever, dyspnea, syncope, headache, dizziness, GI bleed, back pain, seizure, CVA, palpatations, mental health, musculoskeletal)? @ -Differential Chest Pain: Stable Angina, Unstable Angina, STEMI, NSTEMI Aortic Dissection, Pneumothorax, Musculoskeletal, Esophageal Spasm GERD, Cholecystitis, Pancreatitis, Zoster, this is not meant to be an all-inclusive list. EKG interpreted by me (3pts min.). @ -EKG at 604 shows sinus bradycardia rate 53, HI 124, QRS 98, QTQTc [id number] X-rays interpreted by me (1pt min.). @ -Chest x-ray shows evidence of acute process CT interpreted by me (1pt min.). @ -None done U/S interpreted by me (1pt. min.). @ -None done What testing was considered but not performed or refused? (CT, X-rays, U/S, labs)? Why? @ -None What meds were considered but not given or refused? Why? @ -None Did you discuss the management of the patient with other professionals (professionals i.e. , [facility], SPAR MACHINE OPERATOR, lab, RT, psych nurse, group social worker, extrusion technician, teacher, hearing officer, caser up)? Give summary @ -Management discussed with cardiology, Dr. Santoyo patient will be taken to the [facility] Was smoking cessation discussed for >3mins.? @ -No Was critical care preformed (if so, how long)? @ -No Were there social determinants of health that impacted care today? How? (Homelessness, low income, unemployed, alcoholism, drug addiction, transportation, low edu. Level, literacy, decrease access to med. care, skilled nursing, rehab)? @ -No Was there de-escalation of care discussed even if they declined (Discuss DNR or withdrawal of care, Hospice)? DNR status @ -No What co-morbidities impacted this encounter? (DM, HTN, Smoking, COPD, CAD, Cancer, CVA, ARF, Chemo, Hep., AIDS, mental health diagnosis, sleep apnea, morbid obesity)? @ -CAD Was patient admitted / discharged? Hospital course, mention meds given and route, prescriptions, significant lab abnormalities, going to OR and other pertinent info. @ -Admitted. Patient presented emergency department for evaluation of chest pain. EKG was performed after the patient was placed in the room. Patient was given 324 mg of chewable aspirin after arrival. Laboratory studies were obtained.There is no significant leukocytosis, hemoglobin 14.6; normal coagulation studies; BUN 31, creatinine 1.65, elevated troponin at 0.19. Was administered nitroglycerin without relief. He also had 4 mg of morphine and had some relief in his chest pain but reports continued pain in his arm. Nitro paste was applied. With the elevated troponin the patient was started on a heparin drip. Cardiology was consulted as the patient has continued pain after multiple interventions. The patient will be taken to the [facility]. Case discussed with Dr. Kwong Undiagnosed new problem with uncertain prognosis? @ -No Drug Therapy requiring intensive monitoring for toxicity (Heparin, Nitro, Insulin, Cardizem)? @ -Heparin Were any procedures done? @ -No Diagnosis/symptom? @ -NSTEMI Acute, or Chronic, or Acute on Chronic? @ -Acute Uncomplicated (without systemic symptoms) or Complicated (systemic symptoms)? @ -Complicated Side effects of treatment? @ -No Exacerbation, Progression, or Severe Exacerbation? @ -No Poses a threat to life or bodily function? How? (Chest pain, [place], [place], pneumonia, PE, COPD, DKA, ARF, appy, cholecystitis, CVA, Diverticulitis, Homicidal, Suicidal, threat to staff... and all critical care pts) @ -Yes,[place] (Yenni Mares) critical care time of 35 minutes for management of nstemi with heparin gtt (Che Kwong) - Lab Data Lab Results 11/27/24 11/27/24 11/27/24 Range/Units 06:05 06:05 06:05 WBC 10.3 (3.8-10.6) k/uL RBC 4.62 (4.30-5.90) m/uL Hgb 14.6 (13.0-17.5) gm/dL Hct 45.7 (39.0-53.0) % MCV 99.0 (80.0-100.0) fL MCH 31.7 (25.0-35.0) pg MCHC 32.0 (31.0-37.0) g/dL RDW 13.3 (11.5-15.5) % Plt Count 220 (150-450) k/uL MPV 8.0 Neutrophils % (Manual) 27 % Lymphocytes % (Manual) 60 % Monocytes % (Manual) 9 % Eosinophils % (Manual) 4 % Neutrophils # (Manual) 2.78 (1.3-7.7) k/uL Lymphocytes # (Manual) 6.18 H (1.0-4.8) k/uL Monocytes # (Manual) 0.93 (0-1.0) k/uL Eosinophils # (Manual) 0.41 (0-0.7) k/uL Nucleated RBCs 0 (0-0) /100 WBC Manual Slide Review Performed RBC Morphology Normal PT 11.5 (10.0-12.5) sec INR 1.0 (<1.2) APTT 23.7 (22.0-30.0) sec Sodium 135 L (137-145) mmol/L Potassium 4.0 (3.5-5.1) mmol/L Chloride 102 (98-107) mmol/L Carbon Dioxide 23 (22-30) mmol/L Anion Gap 10 mmol/L BUN 31 H (9-20) mg/dL Creatinine 1.65 H (0.66-1.25) mg/dL Est GFR (CKD-EPI)AfAm 47 (>60 ml/min/1.73 sqM) Est GFR (CKD-EPI)NonAf 41 (>60 ml/min/1.73 sqM) Glucose 222 H (74-99) mg/dL Calcium 9.4 (8.4-10.2) mg/dL Magnesium 1.9 (1.6-2.3) mg/dL Total Bilirubin 0.3 (0.2-1.3) mg/dL AST 53 (17-59) U/L ALT 58 H (4-49) U/L Alkaline Phosphatase 47 (38-126) U/L Troponin I (0.000-0.034) ng/mL Total Protein 7.8 (6.3-8.2) g/dL Albumin 4.3 (3.5-5.0) g/dL 11/27/24 Range/Units 06:05 WBC (3.8-10.6) k/uL RBC (4.30-5.90) m/uL Hgb (13.0-17.5) gm/dL Hct (39.0-53.0) % MCV (80.0-100.0) fL MCH (25.0-35.0) pg MCHC (31.0-37.0) g/dL RDW (11.5-15.5) % Plt Count (150-450) k/uL MPV Neutrophils % (Manual) % Lymphocytes % (Manual) % Monocytes % (Manual) % Eosinophils % (Manual) % Neutrophils # (Manual) (1.3-7.7) k/uL Lymphocytes # (Manual) (1.0-4.8) k/uL Monocytes # (Manual) (0-1.0) k/uL Eosinophils # (Manual) (0-0.7) k/uL Nucleated RBCs (0-0) /100 WBC Manual Slide Review RBC Morphology PT (10.0-12.5) sec INR (<1.2) APTT (22.0-30.0) sec Sodium (137-145) mmol/L Potassium (3.5-5.1) mmol/L Chloride (98-107) mmol/L Carbon Dioxide (22-30) mmol/L Anion Gap mmol/L BUN (9-20) mg/dL Creatinine (0.66-1.25) mg/dL Est GFR (CKD-EPI)AfAm (>60 ml/min/1.73 sqM) Est GFR (CKD-EPI)NonAf (>60 ml/min/1.73 sqM) Glucose (74-99) mg/dL Calcium (8.4-10.2) mg/dL Magnesium (1.6-2.3) mg/dL Total Bilirubin (0.2-1.3) mg/dL AST (17-59) U/L ALT (4-49) U/L Alkaline Phosphatase (38-126) U/L Troponin I 0.190 H* (0.000-0.034) ng/mL Total Protein (6.3-8.2) g/dL Albumin (3.5-5.0) g/dL Disposition Is patient prescribed a controlled substance at d/c from ED?: No <Yenni Mares - Last Filed: 11/28/24 13:25> <Che Kwong - Last Filed: 11/28/24 14:13> Clinical Impression: NSTEMI (non-ST elevated myocardial infarction) Disposition: ADMITTED IP TO THIS HOSP Condition: Stable
[2024-11-27] MEDS: ASPIRIN 81 MG PO STA (06:24)
[2024-11-27] MEDS: NITROGLYCERIN SL TABS 0.4 MG TAB SUBLINGUAL PRN (06:36)
[2024-11-27] MEDS: ONDANSETRON 4 MG/2 ML VIAL IVP STA (06:46)
--- NOTE | 2024-11-27 06:46 | XR ---
EXAMINATION TYPE: XR chest 2V DATE OF EXAM: 11/27/2024 6:32 AM COMPARISON: Chest x-ray March 26, 2023 CLINICAL INDICATION: Male, 74 years old with history of Chest Pain, TECHNIQUE: Frontal and lateral views of the chest are obtained. FINDINGS: There is no focal air space opacity, pleural effusion, or pneumothorax seen. The cardiac silhouette size is stable and upper limits of normal. Overlying EKG leads are redemonstrated. The o sseous structures are intact. IMPRESSION: No acute process. [facility], , 11/27/2024 6:44 AM
[2024-11-27 06:49] LABS: HCT 45.7 % (39.0-53.0); HGB 14.6 gm/dL (13.0-17.5); MCH 31.7 pg (25.0-35.0); Platelet Count 220 k/uL (150-450); RBC 4.62 m/uL (4.30-5.90); RDW 13.3 % (11.5-15.5); WBC 10.3 k/uL (3.8-10.6)
[2024-11-27] MEDS: MORPHINE SULFATE 4 MG/ML SYRINGE IVP STA (06:50)
[2024-11-27 06:55] LABS: ALT 58 U/L (4-49); AST 53 U/L (17-59); African American GFR (CKD) 47 (>60 ml/min/1.73 sqM); Albumin 4.3 g/dL (3.5-5.0); Alkaline Phosphatase 47 U/L (38-126); Anion Gap 10 mmol/L; Blood Urea Nitrogen 31 mg/dL (9-20); Calcium 9.4 mg/dL (8.4-10.2); Carbon Dioxide 23 mmol/L (22-30); Chloride 102 mmol/L (98-107); Glucose 222 mg/dL (74-99); Magnesium 1.9 mg/dL (1.6-2.3); Non-African American GFR(CKD) 41 (>60 ml/min/1.73 sqM); Partial Thromboplastin Time 23.7 sec (22.0-30.0); Prothrombin Time 11.5 sec (10.0-12.5); Sodium 135 mmol/L (137-145); Total Bilirubin 0.3 mg/dL (0.2-1.3); Total Protein 7.8 g/dL (6.3-8.2)
[2024-11-27] MEDS ORDERED: HEPARIN SODIUM 1,000 UN/ML (10ML VL) IV PRN (07:31)
[2024-11-27] MEDS: HEPARIN SODIUM 1,000 UN/ML (10ML VL) IV ONE (07:53)
[2024-11-27] MEDS: HEPARIN SOD,PORK IN 0.45% NACL 25,000 UNIT in 0.45% NACL 1 250ML.BAG IV SCH (07:54)
[2024-11-27] MEDS: NITROGLYCERIN OINT 1 INCH/GM PACKET TOPICAL STA (08:02)
[2024-11-27] MEDS ORDERED: NITROGLYCERIN SL TABS 0.4 MG TAB SUBLINGUAL PRN (08:43)
[2024-11-27] MEDS ORDERED: ALPRAZolam 0.5 MG TAB PO PRN (08:43)
[2024-11-27] MEDS ORDERED: ALPRAZolam 0.25 MG TAB PO PRN (08:43)
[2024-11-27] MEDS: ASPIRIN 325 MG TAB PO STA (08:59)
[2024-11-27 09:03] LABS: Eosinophils # (M) 0.41 k/uL (0-0.7); Lymphocytes # (M) 6.18 k/uL (1.0-4.8); Monocytes # (M) 0.93 k/uL (0-1.0); Neutrophils # (M) 2.78 k/uL (1.3-7.7); Neutrophils % (M) 27 %; Nucleated Red Blood Cells 0 /100 WBC (0-0); RBC Morphology Normal; Total Cells Counted 100
[2024-11-27] MEDS: ATORVASTATIN 80 MG TAB PO STA (09:06)
[2024-11-27] MEDS ORDERED: NALOXONE 0.4 MG/ML 1 ML VIAL IV PRN (09:07)
[2024-11-27] MEDS ORDERED: MORPHINE SULFATE 4 MG/ML SYRINGE IV PRN (09:07)
[2024-11-27] MEDS: SODIUM CHLORIDE 0.9% 1,000 ML IV STA (09:08)
[2024-11-27] MEDS: MORPHINE SULFATE 2 MG/ML SYRINGE IVP STA (09:14)
[2024-11-27] MEDS: IV FLUID CONTINUATION 1,000 ML IV ONE (09:20)
[2024-11-27] MEDS: MIDAZOLAM 2 MG/2 ML VIAL IVP ONE (09:45)
[2024-11-27] MEDS: HEPARIN SODIUM,PORCINE (1 ML) 2,500 UNIT in SODIUM CHLORIDE 0.9% 250 ML IRRIGATION PRN (09:46)
[2024-11-27] MEDS: HEPARIN SODIUM,PORCINE 10,000 UNIT in SODIUM CHLORIDE 0.9% 1,000 ML IRRIGATION PRN (09:46)
[2024-11-27] MEDS: LIDOCAINE 1% INJ 10MG/ML (20 ML MDV) SQ ONE (09:48)
[2024-11-27] MEDS: VERAPAMIL SYRINGE (5 MG/10 ML) INTRAARTER ONE (09:49)
[2024-11-27] MEDS: HEPARIN SODIUM 1,000 UN/ML (10ML VL) IVP ONE (10:08)
[2024-11-27] MEDS: HYDROmorphone 0.5 MG/0.5 ML SYRINGE IVP ONE (10:09)
[2024-11-27] MEDS: IOPAMIDOL-370 100ML BTL INJ ONE ×3 (10:20→11:01)
[2024-11-27] MEDS: niCARdipine Syringe (1,000 mcg/10 mL) INTRACORON ONE (10:53)
[2024-11-27] MEDS: CLOPIDOGREL 75 MG TAB PO ONE (11:01)
--- NOTE | 2024-11-27 11:56 | CC ---
CARDIAC CATHETERIZATION REPORT PROCEDURES PERFORMED: 1. Left heart catheterization and coronary angiography. 2. Percutaneous transluminal coronary angioplasty and stenting of a totally occluded mid/distal left anterior descending with a drug-eluting stent. PERFORMED BY: Dr. Miriam Richardson. ANESTHESIA: Moderate conscious sedation time was 70 minutes. The patient was administered Versed. Oxygen saturation, hemodynamics, and EKG were monitored closely. CLINICAL INFORMATION: Mr. Aditya Calzada is a 74-year-old gentleman with a known history of CAD, multivessel PCI. He had previous PCI of circumflex and RCA. Initially, this was performed in 2010 and subsequently in 2015 he had a restenotic RCA which was restented. Since then, he has done well without any symptoms. However, he was also seen in the office recently. He had a stress test in 2021, which was unremarkable. He came into the hospital with chest pain that started last night, became very severe at 4 a.m. and he had precordial prominent ST segments suggestive of anterior wall ischemia with troponin elevation and non ST elevation AL. He was advised prompt cardiac cath after evaluation by Dr. Santoyo. I saw the patient in the brush clearing laborer. Discussed with him the rationale, risks, benefits, options and proceeded with the procedure. PROCEDURE NOTE: Under strict aseptic precautions and local anesthesia with the help of ultrasound, I got access into the right radial artery. A 6-Martiniquais introducer was placed. A JL3.5 and JR4 catheters were used to perform coronary angiography. The same right catheter was used to check LV pressures. LV-gram was not performed. Following this, I performed PCI of mid/distal LAD with excellent result. The patient received 600 mg of Plavix and he will be on aspirin and Plavix without interruption for 1 year. He also received 3000 units of heparin and ACT was 270. He had received earlier heparin in the ER as well. Excellent angiographic result without complication was achieved. The saturation in the fingers of the right hand was 92%. Results were discussed with the patient and family. CARDIAC CATHETERIZATION FINDINGS: The left ventricular end-diastolic pressure was 13 mmHg. No gradient across aortic valve. CORONARY ANGIOGRAPHY FINDINGS: Right coronary artery: Large dominant vessel that was stented before, stented segment is widely patent. Proximal to the stent, there is a 40% narrowing distally. Large vessel bifurcates into PDA, PLV. The bifurcation is quite early. No other significant disease. 40% RCA proximal to the previous stent. Left main coronary artery: Short patent vessel. No significant disease. Bifurcates into LAD and circumflex. Left anterior descending coronary artery: This vessel gives off a good-sized diagonal branch, runs all the way distally and at the junction of middle and distal 1/3rd, there is total occlusion after a septal branch and this appears to be the culprit lesion. Left posterior circumflex coronary artery: Technically this is a nondominant vessel that was stented before. Proximal to the stent, there is about 35% to 40% narrowing stented segment widely patent and it continues as a posterolateral branch. No significant disease in the rest of circumflex other than a 40% lesion proximal to the previous stent. FINAL IMPRESSION: This patient has normal filling pressures. No gradient. A right-dominant system with widely patent RCA at the site of stenting and a 40% stenosis proximal to the RCA stent. The left main is free of significant disease. LAD has a distal total occlusion at the junction of middle and distal 1/3rd, 100% occlusion, which is the culprit lesion. Circumflex that was stented is widely patent with good flow. Proximal stent has a 40% narrowing. Circumflex is nondominant. RECOMMENDATIONS: I advised PCI of LAD and performed this in the same setting. PCI PROCEDURE DETAILS: I used a JL3.5 guide catheter and a Whisper long wire with a SuperCross 45 degree. With this combination, I crossed the lesion. Wire was kept distally. I had a lot of difficulty exchanging this SuperCross and eventually I used a 2.0 caliber 15 mm balloon and dilated the total occlusion and also distal to it. The vessel was of a fairly decent size 2.25 caliber and had a fair amount of myocardium being supplied by it. I then deployed a 2.25 caliber 15 mm long Xience stent at 11 atmospheres. The patient had excellent angiographic result, total resolution of EKG changes, and he had no significant chest pain. He had pain with inflation. Excellent angiographic result without complication was achieved. The results were discussed with the patient and family and he was sent to the room in a stable condition. This procedure was performed on 11/27/2024. MMODL / IJN: [id number] /
[2024-11-27] MEDS ORDERED: MAG HYDROX/AL HYDROX/SIMETH 30 ML CUP PO PRN (13:32)
[2024-11-27] MEDS ORDERED: ZOLPIDEM 5 MG TAB PO PRN (13:32)
[2024-11-27] MEDS ORDERED: ATROPINE SULFATE 0.1 MG/ML 10ML SYRINGE IV PRN (13:32)
[2024-11-27] MEDS ORDERED: RX INFO: IV CONTRAST WAS GIVEN 1 EACH MISC MISCELLANE PRN (13:32)
--- NOTE | 2024-11-27 14:05 | P.CRDCN ---
History of Present Illness Consult date: 11/27/24 Reason for Consult (text): NSTEMI History of present illness: This is a 74-year-old male patient of Dr. 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 Klein. Patient presented to the hospital due to chest pain. Patient states that he woke up with chest pressure around 4 AM this morning along with sweats. He thought it was gas and he drank a Coke and burped but the pressure was still there so he decided to come into the hospital for further evaluation. Patient was found to have an abnormal EKG and was advised for cardiac catheterization urgently. Patient was taken to the Personnel Scheduler by Dr. KAILEE Richardson and found widely patent RCA at the site of the stenting and 40% stenosis of the proximal RCA stent. Left main was free of significant disease. LAD had a distal total occlusion at the junction of the middle and distal one third with 100% occlusion. Circumflex was stented widely patent with good flow. Proximal stent was 40% narrowing. He subsequently underwent PCI of the totally occluded LAD. Blood pressure 139/76, heart rate 76, pulse ox 95% on room air. Patient is seen today in ESU waiting f or a bed on the cardiac stepdown unit. Patient has TR band to the right wrist. He does complain of some pain at the site. No bleeding noted. -EKG: Sinus bradycardia with precordial ST segment changes suggestive of anterior wall ischemia. -Chest x-ray: No acute process -Laboratory studies: WBC 10.3, hemoglobin 14.6. Sodium 135, potassium 4, BUN 31 creatinine 1.65. Troponin 0.190. -Home cardiac medications: Fenofibrate 160 mg daily, metoprolol tartrate 50 mg daily 25 mg at bedtime. -Echocardiogram performed 01/09/2022 revealed EF 55%, mild aortic insufficiency, mitral annular calcification. No significant wall motion abnormality. -Cardiolite stress test performed in the office on 01/15/2022 revealed limited exercise capacity with negative stress test by EKG criteria. Probable normal st ress myocardial perfusion imaging with small sized fixed inferior wall defect with good contractility suggestive of diaphragmatic attenuation. No stress- induced ischemia. EF 60%. Review Of Systems: At the time of my exam: CONSTITUTIONAL: Denies fever or chills. HEENT: Denies blurred vision, vision changes, or eye pain. Denies hemoptysis CARDIOVASCULAR: Denies chest pain. Denies orthopnea. Denies PND. Denies palpitations RESPIRATORY: Denies shortness of breath. GASTROINTESTINAL: Denies abdominal pain. Denies nausea or vomiting. HEMATOLOGIC: Denies bleeding disorders. GENITOURINARY: Denies any blood in urine. SKIN: Denies puritis. Denies rash. Physical examination: Gen: This is a 74-year-old male in no acute distress VS: reviewed HEENT: Head is atraumatic, normocephalic. Pupils equal, round. Sclerae is anicteric. NECK: Supple. No JVD. LUNGS: Clear to auscultation. No wheezes or rhonchi. No intercostal retractions. HEART: Regular rate and rhythm. No murmur. ABDOMEN: Soft No tenderness. EXTREMITIES: No pedal edema. No calf tenderness. NEUROLOGICAL: Patient is awake, alert and oriented x3. Assessment: NSTEMI History of coronary artery disease with previous multivessel PCI Hypertension Hyperlipidemia Myelodysplastic syndrome status post stem cell transplant with Dr. Klein Plan: Resume patient's home cardiac medications Start patient on aspirin 81 mg daily, atorvastatin 40 mg at bedtime Obtain 2-D echocardiogram and Doppler study to assess cardiac structure and function Further recommendations to follow based upon clinical course Thank you kindly for this consultation. Nurse practitioner note has been reviewed, I agree with documented findings and plan of care. Patient was seen and examined. Past Medical History Past Medical History: Coronary Artery Disease (CAD), Chest Pain / Angina, GI Bleed, Hyperlipidemia, Hypertension, Syncope Additional Past Medical History / Comment(s): MDS History of Any Multi-Drug Resistant Organisms: None Reported Past Surgical History: Heart Catheterization With Stent, Hernia Repair, Orthopedic Surgery Additional Past Surgical History / Comment(s): CARDIAC STENTS X3, SHENA INGUINAL HERNIA REPAIRS, LT HAND SX, LT FEMUR BROKEN X2 STEVEN IN PLACE Past Anesthesia/Blood Transfusion Reactions: No Reported Reaction Date of Last Stent Placement:: UNK Past Psychological History: No Psychological Hx Reported Past Alcohol Use History: None Reported, Occasional Past Drug Use History: None Reported - Past Family History Mother Family Medical History: Congestive Heart Failure (CHF) Father Family Medical History: Cancer Medications and Allergies Home Medications Medication Instructions Recorded Confirmed Type Metoprolol Tartrate [Lopressor] 50 mg PO DAILY 11/07/19 11/27/24 History Metoprolol Tartrate [Lopressor] 25 mg PO HS 03/26/23 11/27/24 History Fenofibrate [Lofibra] 160 mg PO DAILY 11/27/24 11/27/24 History Temazepam [Restoril] 15 mg PO HS 11/27/24 11/27/24 History Allergies Allergy/AdvReac Type Severity Reaction Status Date / Time No Known Allergies Allergy Verified 11/27/24 10:33 Physical Exam Vitals: Vital Signs Temp Pulse Pulse Resp BP BP Pulse Ox 11/27/24 13:13 76 14 139/76 95 11/27/24 09:14 52 L 16 130/90 99 11/27/24 07:50 97.7 F 56 L 16 132/82 99 11/27/24 05:50 97.5 F L 56 L 20 162/83 97 Intake and Output 11/26/24 11/27/24 11/27/24 22:59 06:59 14:59 Intake Total 260.641 Balance 260.641 Intake: IV 250 Intake, IV Titration 10.641 Amount Heparin Sod,Pork in 0.45% 10.641 NaCl 25,000 unit In 0.45 % NaCl 1 250ml.bag @ 12 UNITS/KG/HR 9.253 mls/hr IV .Q24H [facility] Rx#: [id number] Other: Weight 77.111 kg Results 11/27/24 06:05 11/27/24 06:05 Cardiac Enzymes 11/27/24 11/27/24 Range/Units 06:05 06:05 AST 53 (17-59) U/L Troponin I 0.190 H* (0.000-0.034) ng/mL Coagulation 11/27/24 Range/Units 06:05 PT 11.5 (10.0-12.5) sec APTT 23.7 (22.0-30.0) sec CBC 11/27/24 Range/Units 06:05 WBC 10.3 (3.8-10.6) k/uL RBC 4.62 (4.30-5.90) m/uL Hgb 14.6 (13.0-17.5) gm/dL Hct 45.7 (39.0-53.0) % Plt Count 220 (150-450) k/uL Comprehensive Metabolic Panel 11/27/24 Range/Units 06:05 Sodium 135 L (137-145) mmol/L Potassium 4.0 (3.5-5.1) mmol/L Chloride 102 (98-107) mmol/L Carbon Dioxide 23 (22-30) mmol/L BUN 31 H (9-20) mg/dL Creatinine 1.65 H (0.66-1.25) mg/dL Glucose 222 H (74-99) mg/dL Calcium 9.4 (8.4-10.2) mg/dL AST 53 (17-59) U/L ALT 58 H (4-49) U/L Alkaline Phosphatase 47 (38-126) U/L Total Protein 7.8 (6.3-8.2) g/dL Albumin 4.3 (3.5-5.0) g/dL Current Medications Generic Name Dose Route Start Last Admin Trade Name Freq PRN Reason Stop Dose Admin Alprazolam 0.25 mg 11/27/24 08:43 Alprazolam 0.25 Mg Tab PO Q6HR PRN Mild Anxiety Alprazolam 0.5 mg 11/27/24 08:43 Alprazolam 0.5 Mg Tab PO Q6HR PRN Moderate Anxiety Heparin Sodium (Porcine) 0 unit 11/27/24 07:31 Heparin Sodium 1,000 Un/Ml (10ml Vl) IV PER PROTOCOL PRN Low PTT Protocol Heparin Sodium/Sodium Chloride 250 mls @ 9.253 mls/hr 11/27/24 07:45 11/27/24 09:03 25,000 unit/ Sodium Chloride IV 0 units/kg/hr .Q24H [facility] 0 mls/hr Titration Protocol 12 UNITS/KG/HR Heparin Sodium (Porcine) 10, 1,001 mls @ 999 mls/hr 11/28/24 07:00 11/27/24 09:46 000 unit/ Sodium Chloride IRRIGATION 11/28/24 23:00 0 mls ONCE PRN Administration INTRA-OP Heparin Sodium (Porcine) 2,500 250.5 mls @ 250 mls/hr 11/28/24 07:00 11/27/24 09:46 unit/ Sodium Chloride IRRIGATION 11/28/24 23:00 100 mls ONCE PRN Administration INTRA-OP Sodium Chloride 1,000 mls @ 75 mls/hr 11/27/24 08:59 11/27/24 09:08 Saline 0.9% IV 11/27/24 22:18 75 mls/hr .[id number] STA Administration Morphine Sulfate 4 mg 11/27/24 09:07 Morphine Sulfate 4 Mg/Ml Syringe IV Q4HR PRN Severe Pain (Scale 7 to 10) Naloxone HCl 0.2 mg 11/27/24 09:07 Naloxone 0.4 Mg/Ml 1 Ml Vial IV Q2M PRN Opioid Reversal Nitroglycerin 0.4 mg 11/27/24 06:15 11/27/24 06:36 Nitroglycerin Sl Tabs 0.4 Mg Tab SUBLINGUAL 0.4 mg Q5M PRN Administration Chest Pain Nitroglycerin 0.4 mg 11/27/24 08:43 Nitroglycerin Sl Tabs 0.4 Mg Tab SUBLINGUAL Q5M PRN Chest Pain Intake and Output 11/26/24 11/27/24 11/27/24 22:59 06:59 14:59 Intake Total 260.641 Balance 260.641 Intake: IV 250 Intake, IV Titration 10.641 Amount Heparin Sod,Pork in 0.45% 10.641 NaCl 25,000 unit In 0.45 % NaCl 1 250ml.bag @ 12 UNITS/KG/HR 9.253 mls/hr IV .Q24H [facility] Rx#: [id number] Other: Weight 77.111 kg 11/27/24 06:05 11/27/24 06:05
--- NOTE | 2024-11-27 14:38 | P.HPIM ---
History of Present Illness H&P Date: 11/27/24 Patient is a 74-year-old male with CAD with multiple stents (follows with Dr. Rayna Richardson), hyperlipidemia, hypertension and extensive cardiac history is here for evaluation of chest pressure. Patient reported that around 4 AM today he started to experience chest pressure on the left side of his chest that radiates down his left arm that has been constant with an intensity of 6-9/10. He had associated sweats. Patient took 1 nitroglycerin tablet but did not improve his symptoms. Which led him to seek care. He denied shortness of breath, calf pain, extremity swelling, cough, fever, chills, nausea, vomiting, abdominal pain, loss of consciousness, lightheadedness, palpitations, focal weakness, ch anges in vision, change in speech, recent travel, or recent illness. On admission, chest x-ray showed no acute process. EKG showed sinus bradycardia with a rate of 53, normal axis, noted ST elevations on V2-V6 and lead II. Labs on admission showed WBC 10.3, hemoglobin 14.6, MCV 99, platelet count 2 20,000, PT 11.5, INR 1, PTT 23.7, sodium 135, potassium 4, chloride 102, bicarb 23, BUN 31, creatinine 1.65, glucose 222, calcium 94, magnesium 1.9, AST 53, ALT 58, alk phos 47, albumin 4.3. Troponins elevated at 0.19. Vitals on admission showed temperature 97.5 F, pulse rate 56, respiratory rate 20, blood pressure 162/83, O2 saturation 97% on room air ED documentation reviewed. Heparin drip, nitroglycerin, morphine IVP, and aspirin high-dose initiated in the ED. Review of systems: Pertinent positives and negatives as discussed in HPI, a complete review of systems was performed and all other systems are negative. Social history: Tobacco: Denies history of smoking Alcohol: Occasional alcohol use. 1 beer every 2 to 3 months Recreational drugs: Denies illicit or recreational drug use Travel: No recent travel Physical examination: Vital signs reviewed General: non toxic, no distress, appears at stated age, on nasal cannula Derm: no unusual rashes/lesions, warm Head: atraumatic, normocephalic, symmetric Eyes: EOMI, anicteric sclera, pupils equal round reactive to light ENT: Nose and ears atraumatic Neck: No cervical lymphadenopathy, supple Mouth: no lip lesion, mucus membranes moist Cardiovascular: S1S2 reg, no murmur Lungs: CTA bilateral, no rhonchi, no rales, no accessory muscle use Abdominal: soft, nondistended, nontender to palpation, no guarding Ext: muscle strength 5 out of 5 in all 4 extremities grossly, no gross muscle atrophy, no contractures, positive dorsalis pedis pulse bilateral, no edema Neuro: CN II-XI grossly intact, no gross focal neuro deficits Psych: Alert and oriented x 3, appropriate affect and mood Assessment/Plan: 74-year-old male with extensive cardiac history of multiple stents here for chest pressure. Found to have STEMI and LASHAY on imaging and labs. #. STEMI, status post cardiac catheterization and RIKKI placement of a total occlusion of distal LAD -Troponin elevated 0.19 -EKG showed sinus bradycardia with a rate of 53, normal axis, noted ST elevations on V2-V6 and lead II. -Cardiac monitoring -Supplemental oxygen as needed -Heart healthy diet -Trend troponin to peak -Lipid panel ordered -TSH ordered -EKG as needed -Echocardiogram ordered. Echocardiogram in 01/09/2022 revealed EF 55%, mild aort ic insufficiency, mitral annular calcification. No significant wall motion abnormality. -Heparin drip discontinued -Nitroglycerin prn for chest pain. 0.4 mg PO and Nitrobid topical -Given aspirin 325 mg once in the ED -Continue with aspirin 81 mg daily -Continue lipitor 80 mg daily, also started on Plavix 75 daily -Continue with home Lopressor 25 mg at night and 50 mg p.o. daily. Discontinue if patient has signs/symptoms of hert failure -Cardiology consulted. Cardiac cath showed patent RCA at the site of stenting, distal total occlusion of the LAD #. LASHAY vs CKD, unknown baseline -Creatinine elevated at 1.65. GFR in 2022 39 -Continue with IV fluids 0.9 normal saline at 75 cc/h -Monitor BMP #. Hyponatremia -Patient stable and asymptomatic as of now -Monitor BMP #. Hyperglycemia -No history of diabetes -Check A1c Chronic Conditions: #. Hyperlipidemia #. Hypertension -Continue home temazepam PO, fenofibrate PO F: 0.9 normal saline at 75 cc/h E: monitor Na for now N: Heart healthy diet A: can self ambulate DVT ppx: heparin SQ every 8 hours Dispo: The patient is admitted as inpatient with an anticipated greater than 2 midnight stay for evaluation of STEMI CODE STATUS: Full Discussed with: Patient Anticipated discharge place: Home Marina De Jesus MD PGY-1 IM Dictation was produced using [employer] dictation software. please excuse any grammatical, word or spelling errors. I have seen and evaluated the patient today. Discussed with the resident and agree with the residents finding and plan as documented in the resident's note. Changes highlighted in blue font. Past Medical History Past Medical History: Coronary Artery Disease (CAD), Chest Pain / Angina, GI Bleed, Hyperlipidemia, Hypertension, Syncope Additional Past Medical History / Comment(s): MDS History of Any Multi-Drug Resistant Organisms: None Reported Past Surgical History: Heart Catheterization With Stent, Hernia Repair, Orthopedic Surgery Additional Past Surgical History / Comment(s): CARDIAC STENTS X3, SHENA INGUINAL HERNIA REPAIRS, LT HAND SX, LT FEMUR BROKEN X2 STEVEN IN PLACE Past Anesthesia/Blood Transfusion Reactions: No Reported Reaction Date of Last Stent Placement:: UNK Past Psychological History: No Psychological Hx Reported Past Alcohol Use History: None Reported, Occasional Past Drug Use History: None Reported - Past Family History Mother Family Medical History: Congestive Heart Failure (CHF) Father Family Medical History: Cancer Medications and Allergies Home Medications Medication Instructions Recorded Confirmed Type Metoprolol Tartrate [Lopressor] 50 mg PO DAILY 11/07/19 11/27/24 History Metoprolol Tartrate [Lopressor] 25 mg PO HS 03/26/23 11/27/24 History Fenofibrate [Lofibra] 160 mg PO DAILY 11/27/24 11/27/24 History Temazepam [Restoril] 15 mg PO HS 11/27/24 11/27/24 History Allergies Allergy/AdvReac Type Severity Reaction Status Date / Time No Known Allergies Allergy Verified 11/27/24 10:33 Physical Exam Vitals: Vital Signs Temp Pulse Resp BP Pulse Ox 11/27/24 09:14 52 L 16 130/90 99 11/27/24 07:50 97.7 F 56 L 16 132/82 99 11/27/24 05:50 97.5 F L 56 L 20 162/83 97 Intake and Output 11/26/24 11/27/24 11/27/24 22:59 06:59 14:59 Intake Total 110.641 Balance 110.641 Intake: IV 100 Intake, IV Titration 10.641 Amount Heparin Sod,Pork in 0.45% 10.641 NaCl 25,000 unit In 0.45 % NaCl 1 250ml.bag @ 12 UNITS/KG/HR 9.253 mls/hr IV .Q24H [facility] Rx#: [id number] Other: Weight 77.111 kg Results CBC & Chem 7: 11/27/24 06:05 11/27/24 06:05 Labs: Abnormal Lab Results - Last 24 Hours (Table) 11/27/24 11/27/24 11/27/24 Range/Units 06:05 06:05 06:05 Lymphocytes # (Manual) 6.18 H (1.0-4.8) k/uL Sodium 135 L (137-145) mmol/L BUN 31 H (9-20) mg/dL Creatinine 1.65 H (0.66-1.25) mg/dL Glucose 222 H (74-99) mg/dL ALT 58 H (4-49) U/L Troponin I 0.190 H* (0.000-0.034) ng/mL
[2024-11-27] MEDS: HEPARIN SODIUM,PORCINE 5,000 UNIT/ML 1 ML VIAL SQ SCH (16:59)
--- NOTE | 2024-11-27 17:29 | CA ---
Transthoracic Echo Report Name: Aditya Calzada Age: 74 Gender: M : 1950 Exam Date: 11/27/2024 14:24 Exam Location: [place] [facility] Ht (in): 67 Wt (lb): 170 Ordering Physician: Shasha Delarosa Attending/Referring Phys: [id number], Isaura Mural Artist Meghan Estrada, RANDA Procedure CPT: Indications: nstemi Cardiac Hx: Stent Technical Quality: Good Contrast 1: Definity Total Dose (mL): 2 Contrast 2: Total Dose (mL): MEASUREMENTS (Male / Female) Normal Values 2D ECHO LV Diastolic Diameter PLAX 4.4 cm 4.2 - 5.9 / 3.9 - 5.3 cm LV Systolic Diameter PLAX 3.3 cm IVS Diastolic Thickness 1.0 cm 0.6 - 1.0 / 0.6 - 0.9 cm LVPW Diastolic Thickness 1.0 cm 0.6 - 1.0 / 0.6 - 0.9 cm LV Relative Wall Thickness 0.4 RV Internal Dim ED PLAX 3.0 cm LVOT Diameter 1.5 cm LA Systolic Diameter LX 3.4 cm 3.0 - 4.0 / 2.7 - 3.8 cm LA Volume 45.3 cm??? 18 - 58 / 22 - 52 cm??? LA Volume Index 23.5 cm???/m??? 16 - 28 cm???/m??? DOPPLER AI Peak Velocity 277.4 cm/s AI Peak Gradient 30.8 mmHg AI Pressure Half Time 560.3 ms MV Area PHT 3.2 cm??? Mitral E Point Velocity 60.3 cm/s Mitral A Point Velocity 97.8 cm/s Mitral E to A Ratio 0.6 MV Deceleration Time 239.7 ms TR Peak Velocity 252.9 cm/s TR Peak Gradient 25.6 mmHg FINDINGS Left Ventricle Left ventricular ejection fraction is estimated at 50-55%. Apical akinesia. Left ventricular wall thickness normal. mild mid ventricular increased turbulance. Right Ventricle Normal right ventricular size and function. Unable to estimate the right ventricular systolic pressure. Right Atrium Normal right atrial size. Left Atrium Normal left atrial size. Mitral Valve Mitral annular calcification. No mitral stenosis. Trace to mild mitral regurgitation. Aortic Valve Trileaflet aortic valve. Diffuse thickening (sclerosis) of the aortic valve cusps without reduced excursion. No aortic stenosis. Mild aortic regurgitation. Tricuspid Valve Structurally normal tricuspid valve. Mild tricuspid regurgitation. Pulmonic Valve Structurally normal pulmonic valve. No pulmonic stenosis. No pulmonic regurgitation. Pericardium No pericardial effusion. Aorta Normal size aortic root and proximal ascending aorta. CONCLUSIONS LVEF 50-55% Apical hypokinesia Sclerotic calcific aortic valve, Mild aortic regurgitation. Mild mitral regurgitation. Mild tricuspid regurgitation Previewed by: Dr Jesus Nicolas (Electronically Signed) Final Date: 27 November 2024 17:29
[2024-11-27] MEDS: ACETAMINOPHEN TAB 325 MG TAB PO PRN (18:25)
[2024-11-27 19:41] VITALS: RESP 16
[2024-11-27] MEDS: TEMAZEPAM 15 MG CAP PO SCH (20:09)
[2024-11-27] MEDS: LOSARTAN 25 MG TAB PO SCH (20:09)
[2024-11-27] MEDS: SODIUM CHLORIDE 0.9% 1,000 ML in EMPTY BAG 1 BAG IV SCH (20:10)
[2024-11-27] MEDS: METOPROLOL TARTRATE 25 MG TAB PO SCH (20:10)
[2024-11-27] MEDS: ATORVASTATIN 80 MG TAB PO SCH (20:10)
[2024-11-27] MEDS ORDERED: ATORVASTATIN 40 MG TAB PO SCH (21:00)
[2024-11-27] MEDS ORDERED: METOPROLOL TARTRATE 25 MG TAB PO SCH (21:00)
[2024-11-28 04:01] VITALS: TEMP 98.6
[2024-11-28 07:42] LABS: African American GFR (CKD) 55 (>60 ml/min/1.73 sqM); Anion Gap 5 mmol/L; Blood Urea Nitrogen 22 mg/dL (9-20); Calcium 8.9 mg/dL (8.4-10.2); Carbon Dioxide 26 mmol/L (22-30); Chloride 106 mmol/L (98-107); Glucose 111 mg/dL (74-99); Non-African American GFR(CKD) 48 (>60 ml/min/1.73 sqM); Potassium 4.8 mmol/L (3.5-5.1); Sodium 137 mmol/L (137-145)
[2024-11-28] MEDS: CLOPIDOGREL 75 MG TAB PO SCH (08:09)
[2024-11-28] MEDS: FENOFIBRATE 160 MG TAB PO SCH (08:09)
[2024-11-28] MEDS: ASPIRIN 81 MG PO SCH (08:10)
[2024-11-28] MEDS ORDERED: ASPIRIN 81 MG PO SCH (09:00)
[2024-11-28] MEDS ORDERED: METOPROLOL TARTRATE 50 MG TAB PO SCH (09:00)
[2024-11-28] MEDS ORDERED: PANTOPRAZOLE 40 MG/10 ML VIAL IVP SCH (09:00)
[2024-11-28 10:16] VITALS: BP 126/70; PULSE 69
--- NOTE | 2024-11-28 10:23 | P.PN ---
Subjective Progress Note Date: 11/28/24 Reason for Consult (text): NSTEMI History of present illness: This is a 74-year-old male patient of Dr. 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 Klein. Patient presented to the hospital due to chest pain. Patient states that he woke up with chest pressure around 4 AM this morning along with sweats. He thought it was gas and he drank a Coke and burped but the pressure was still there so he decided to come into the hospital for further evaluation. Patient was found to have an abnormal EKG and was advised for cardiac catheterization urgently. Patient was taken to the Clinical Sociologist by Dr. KAILEE Richardson and found widely patent RCA at the site of the stenting and 40% stenosis of the proximal RCA stent. Left main was free of significant disease. LAD had a distal total occlusion at the junction of the middle and distal one third with 100% occlusion. Circumflex was stented widely patent with good flow. Proximal stent was 40% narrowing. He subsequently underwent PCI of the totally occluded LAD. Blood pressure 139/76, heart rate 76, pulse ox 95% on room air. Patient is seen today in ESU waiting for a bed on the cardiac stepdown unit. Patient has TR band to the right wrist. He does complain of some pain at the site. No bleeding noted. -EKG: Sinus bradycardia with precordial ST segment changes suggestive of anterior wall ischemia. -Chest x-ray: No acute process -Laboratory studies: WBC 10.3, hemoglobin 14.6. Sodium 135, potassium 4, BUN 31 creatinine 1.65. Troponin 0.190. -Home cardiac medications: Fenofibrate 160 mg daily, metoprolol tartrate 50 mg daily 25 mg at bedtime. -Echocardiogram performed 01/09/2022 revealed EF 55%, mild aortic insufficiency, mitral annular calcification. No significant wall motion abnormality. -Cardiolite stress test performed in the office on 01/15/2022 revealed limited exercise capacity with negative stress test by EKG criteria. Probable normal stress myocardial perfusion imaging with small sized fixed inferior wall defect with good contractility suggestive of diaphragmatic attenuation. No stress- induced ischemia. EF 60%. 11/28 Patient seen and examined. Patient is now on the cardiac stepdown unit. Blood pressure 143/68, heart rate 75, pulse ox 94% on room air. Repeat blood work reveals BUN 22 creatinine 1.45. Echocardiogram results reviewed with the patient. Patient denies chest pain, chest pressure and no shortness of breath. Echocardiogram reveals EF of 50 to 55%, mild aortic regurgitation, mild mitral regurgitation, mild tricuspid regurgitation. Physical examination: Gen: This is a 74-year-old male in no acute distress VS: reviewed HEENT: Head is atraumatic, normocephalic. Pupils equal, round. Sclerae is anicteric. LUNGS: Clear to auscultation. No wheezes or rhonchi. No intercostal retractions. HEART: Regular rate and rhythm. No murmur. ABDOMEN: Soft No tenderness. EXTREMITIES: No pedal edema. No calf tenderness. NEUROLOGICAL: Patient is awake, alert and oriented x3. Assessment: NSTEMI History of coronary artery disease with previous multivessel PCI Hypertension Hyperlipidemia Myelodysplastic syndrome status post stem cell transplant with Dr. Klein Plan: Continue patient on aspirin 81 mg daily, atorvastatin 80 mg at bedtime, Plavix, losartan, Lopressor Prescriptions for patient's new cardiac medications have been sent to his pharmacy. Patient is cleared for discharge from cardiology and appointment has been made for him with Dr. Richardson on December 07. Nurse practitioner note has been reviewed, I agree with documented findings and plan of care. Patient was seen and examined. Objective - Vital Signs Vital signs: Vital Signs Temp 98.6 F 11/28/24 04:00 Pulse 75 11/28/24 04:00 Resp 16 11/28/24 04:00 BP 143/68 11/28/24 04:00 Pulse Ox 94 L 11/28/24 04:00 FiO2 Intake & Output 11/27/24 11/28/24 11/28/24 18:59 06:59 18:59 Intake Total 260.641 Output Total 525 Balance -264.359 Weight 77.111 kg 77 kg Intake: IV 250 Intake, IV Titration 10.641 Amount Heparin Sod,Pork in 0.45% 10.641 NaCl 25,000 unit In 0.45 % NaCl 1 250ml.bag @ 12 UNITS/KG/HR 9.253 mls/hr IV .Q24H [facility] Rx#: [id number] Output: Urine 525 Other: # Voids 1 2 - Labs CBC & Chem 7: 11/27/24 06:05 11/28/24 05:48 Labs: Abnormal Lab Results - Last 24 Hours (Table) 11/27/24 11/28/24 Range/Units 06:05 05:48 Lymphocytes # (Manual) 6.18 H (1.0-4.8) k/uL BUN 22 H (9-20) mg/dL Creatinine 1.45 H (0.66-1.25) mg/dL Glucose 111 H (74-99) mg/dL
[2024-11-28 11:15] VITALS: BMI 26.6
--- NOTE | 2024-11-28 13:06 | P.DS ---
Providers Date of admission: 11/27/24 08:07 Expected date of discharge: 11/28/24 Attending physician: Aba Barraza Consults: 11/27/24 09:07 Consult Physician Routine Consulting Provider: Layo Santoyo Consult Reason/Comments: NSTEMI Do you want consulting provider notified?: Already Contacted 11/27/24 13:33 Consult Physician Routine Consulting Provider: [facility] Consult Reason/Comments: Post Interventional Patient Do you want consulting provider notified?: Already Contacted Primary care physician: [facility] Course: Hospital Course: Patient is a 74-year-old male with CAD with multiple stents (follows with Dr. Rayna Richardson), hyperlipidemia, hypertension and extensive cardiac history is here for evaluation of chest pressure. Patient reported that around 4 AM today he started to experience chest pressure on the left side of his chest that radiates down his left arm that has been constant with an intensity of 6-9/10. He had associated sweats. Patient took 1 nitroglycerin tablet but did not improve his symptoms. Which led him to seek care. He denied shortness of breath, calf pain, extremity swelling, cough, fever, chills, nausea, vomiting, abdominal pain, loss of consciousness, lightheadedness, palpitations, focal weakness, changes in vision, change in speech, recent travel, or recent illness. On admission, chest x-ray showed no acute process. EKG showed sinus bradycardia with a rate of 53, normal axis, noted ST elevations on V2-V6 and lead II. Labs on admission showed WBC 10.3, hemoglobin 14.6, MCV 99, platelet count 2 20,000, PT 11.5, INR 1, PTT 23.7, sodium 135, potassium 4, chloride 102, bicarb 23, BUN 31, creatinine 1.65, glucose 222, calcium 94, magnesium 1.9, AST 53, ALT 58, alk phos 47, albumin 4.3. Troponins elevated at 0.19. Vitals on admission showed temperature 97.5 F, pulse rate 56, respiratory rate 20, blood pressure 162/83, O2 saturation 97% on room air Patient was admitted for the evaluation of STEMI and LASHAY. Ordered cardiac monitoring, trending troponins, lipid panel, TSH, echocardiogram, heparin drip, nitroglycerin as needed, oral aspirin, high-dose statin, and cardiology is cons ulted. Patient was sent to [facility] and it showed patent RCA at the site of stenting, distal total occlusion of the LAD with stent placement. Patient also developed LASHAY and was given IV fluids. Patient noted to have hyperglycemia on admission and A1c was tested. Patient symptoms improved throughout hospital stay. Patient is cleared for discharge today and was prescribed oral aspirin, oral nitroglycerin, oral losartan, high intensity dose of atorvastatin, and oral clopidogrel. He was advised to continue taking his Restoril and fenofibrate. Metoprolol home dose was changed to 25 mg p.o. twice daily. Patient is advised to follow-up with PCP and his building custodian on outpatient basis. Patient's hyperglycemia should also be evaluated on follow-up with his PCP. Final Diagnosis: #. STEMI, status post cardiac catheterization and RIKKI placement of a total occlusion of distal LAD #. LASHAY vs CKD, unknown baseline, improved #. Hyponatremia, resolved #. Hyperglycemia #. Hyperlipidemia #. Hypertension #. Insomnia Physical examination: Vital signs reviewed General: non toxic, no distress Derm: no unusual rashes/lesions, warm Head: atraumatic, normocephalic, symmetric Eyes: EOMI, anicteric sclera, pupils equal round reactive to light ENT: Nose and ears atraumatic Neck: No cervical lymphadenopathy, trachea midline, supple Mouth: no lip lesion, mucus membranes moist Cardiovascular: S1S2 reg, no murmur Lungs: CTA bilateral, no rhonchi, no rales, no accessory muscle use Abdominal: soft, nondistended, nontender to palpation, no guarding Ext: muscle strength 5 out of 5 in all 4 extremities grossly, no gross muscle atrophy, no contractures, positive dorsalis pedis pulse bilateral, no edema Neuro: CN II-XI grossly intact, no gross focal neuro deficits Psych: Alert, oriented, appropriate affect and mood A total of 33 minutes of time were spent preparing this complex discharge summary. Patient was discharged on 11/28/24 at 1056. I have seen and evaluated the patient today. Discussed with the resident and agree with the residents finding and plan as documented in the resident's note. Changes highlighted in blue font. Patient Condition at Discharge: Stable Plan - Discharge Summary New Discharge Prescriptions: New Aspirin 81 mg PO DAILY tab Nitroglycerin Sl Tabs [Nitrostat] 0.4 mg SUBLINGUAL Q5M PRN #25 tab PRN Reason: Chest Pain Losartan [Cozaar] 25 mg PO HS #90 tab Atorvastatin [Lipitor] 80 mg PO HS #90 tab Clopidogrel [Plavix] 75 mg PO DAILY #90 tab Continue Temazepam [Restoril] 15 mg PO HS Fenofibrate [Lofibra] 160 mg PO DAILY Changed Metoprolol Tartrate [Lopressor] 25 mg PO BID #0 Discontinued Metoprolol Tartrate [Lopressor] 50 mg PO DAILY Discharge Medication List Fenofibrate [Lofibra] 160 mg PO DAILY 11/27/24 [History] Temazepam [Restoril] 15 mg PO HS 11/27/24 [History] Aspirin 81 mg PO DAILY tab 11/28/24 [Rx] Atorvastatin [Lipitor] 80 mg PO HS #90 tab 11/28/24 [Rx] Clopidogrel [Plavix] 75 mg PO DAILY #90 tab 11/28/24 [Rx] Losartan [Cozaar] 25 mg PO HS #90 tab 11/28/24 [Rx] Metoprolol Tartrate [Lopressor] 25 mg PO BID #0 11/28/24 [Rx] Nitroglycerin Sl Tabs [Nitrostat] 0.4 mg SUBLINGUAL Q5M PRN #25 tab 11/28/24 [Rx] Follow up Appointment(s)/Referral(s): Jazmin Richardson MD [STAFF PHYSICIAN] - 12/07/24 9:45 am Tunde Ruano DO [Primary Care Provider] - 1-2 days Patient Instructions/Handouts: Heart Attack (DC) Activity/Diet/Wound Care/Special Instructions: Please see your PCP and cardiology. Discharge Disposition: HOME SELF-CARE
[2024-11-29 07:45] LABS: Chol/HDL Ratio 6.73 Ratio
== END 2024-11-28 12:20 | disposition home or self-care (01) | DRG 322 ==
LOC: EC 05:47 → 3SCARD 08:07
PROVIDERS: ADMIT Student in an Organized Health Care Education/Training Program; ATTEND Student in an Organized Health Care Education/Training Program
PROC: B2111ZZ Fluoroscopy of Multiple Coronary Arteries using Low Osmolar Contrast (ICD-10-PCS; 2024-11-27)
PROC: 027034Z Dilation of Coronary Artery, One Artery with Drug-eluting Intraluminal Device, Percutaneous Approach (ICD-10-PCS; principal; 2024-11-27 09:00)
PROC: 4A023N7 Measurement of Cardiac Sampling and Pressure, Left Heart, Percutaneous Approach (ICD-10-PCS; 2024-11-27 09:00)
DX: I21.3 ST elevation (STEMI) myocardial infarction of unspecified site (principal); E87.1 Hypo-osmolality and hyponatremia; D46.9 Myelodysplastic syndrome, unspecified; Z94.84 Stem cells transplant status; I12.9 Hypertensive chronic kidney disease with stage 1 through stage 4 chronic kidney disease, or unspecified chronic kidney disease; N18.9 Chronic kidney disease, unspecified; I34.81 Nonrheumatic mitral (valve) annulus calcification; N17.9 Acute kidney failure, unspecified; G47.00 Insomnia, unspecified; I25.10 Atherosclerotic heart disease of native coronary artery without angina pectoris; E78.5 Hyperlipidemia, unspecified; Z79.02 Long term (current) use of antithrombotics/antiplatelets; Z79.82 Long term (current) use of aspirin; Z79.899 Other long term (current) drug therapy; Z82.49 Family history of ischemic heart disease and other diseases of the circulatory system; Z87.19 Personal history of other diseases of the digestive system
CPT/HCPCS: 36415; 71046; 80048; 80053; 80061; 83036; 83735; 84443; 84484; 85025; 85610; 85730; 93005; 93306; 93458; 96365; 96375; 99285; 99291